=== PATIENT | female | born 1945 | race Hispanic/Latino ===

== ENCOUNTER 2017-08-17 22:14 | Emergency (ER) | payer MEDICARE ==
[2017-08-18] MEDS ORDERED: Clindamycin/D5W 900 mg/50 ml Premix Bag ONE (00:15)
[2017-08-18] MEDS ORDERED: Ondansetron HCl/PF 4 MG/2 ML Vial ONE ×2 (00:15→01:35)
[2017-08-18] MEDS ORDERED: Clindamycin/D5W 900 MG in Premix Bag 1 BAG IVPB SCH (00:30)
[2017-08-18 00:43] LABS: #Basophils 0.1 thou/uL (0.0-0.2); #Eosinphils 0.2 thou/uL (0.0-0.7); #Monocytes 0.6 thou/uL (0.11-0.59); #Neutrophils 6.5 thou/uL (1.40-6.50); %Basophils 0.6 % (0.0-1.0); %Eosinophils 2.6 % (0.0-10.0); %Lymphocytes 21.3 % (21.0-51.0); %Monocytes 6.7 % (0.0-10.0); Hematocrit 30.2 % (36.0-47.0); Mean Platelet Volume 7.5 fL (7.4-10.4); White Blood Cell (WBC) Count 9.4 thou/uL (4.8-10.8)
[2017-08-18 01:00] LABS: Bilirubin Negative (Negative); Blood, Urine Trace (Negative); Glucose, Urine (Dipstick) 250 mg/dL (Negative); Ketone, Urine Negative (Negative); Nitrite Negative (Negative); Protein, Urine (Dipstick) 100 mg/dL (Neg-Trace); Urobilinogen 0.2 mg/dL (0.2-1.0)
[2017-08-18 01:01] LABS: ALT (SGPT) 13 U/L (8-55); AST (SGOT) 22 U/L (5-34); Alkaline Phosphatase 67 U/L (40-150); Anion Gap 11 mmol/L (10-20); BUN (Urea Nitrogen) 21 mg/dL (9.8-20.1); Bilirubin, Total Less than 0.2 mg/dL (0.2-1.2); Calc. Creatinine Clearance 0 mL/min (70-130); Carbon Dioxide 25 mmol/L (23-31); Chloride 103 mmol/L (98-107); Estimated GFR-MDRD 39; Globulin 3.1 g/dL (2.4-3.5); Lipase 20 U/L (8-78); Protein, Total 6.6 g/dL (6.0-8.3)
[2017-08-18 01:01] LABS: Bacteria/HPF None Seen HPF (None Seen); Hyaline Casts/LPF 0-3 HYALINE CAST LPF (0-3 Hyaline); Squamous Epithelial 0-3 HPF (0-3); WBC/HPF 0-3 HPF (0-3)
== END 2017-08-18 02:54 | disposition home or self-care (01) ==
LOC: ERS 22:14
DX: R11.2 Nausea with vomiting, unspecified (principal); E86.0 Dehydration; T37.0X5A Adverse effect of sulfonamides, initial encounter; L03.115 Cellulitis of right lower limb; E78.5 Hyperlipidemia, unspecified; I10 Essential (primary) hypertension; E11.9 Type 2 diabetes mellitus without complications; F17.210 Nicotine dependence, cigarettes, uncomplicated; F32.9 Major depressive disorder, single episode, unspecified
CPT/HCPCS: 80053; 81003; 81015; 83690; 85025; 96361; 96365; 96375; 96376; 99406; J2405; J3490

== ENCOUNTER → 2019-12-12 | Day surgery (SDC) | payer MEDICARE ==
[2019-12-11 16:08] VITALS: BMI 22.1
[~2019-12-12] MED LIST: Fentanyl 100 MCG/2 ML VIAL ONE; Heparin 10,000 UNITS/1 ML VIAL ONE; Iopamidol 370 76% 100 ML VIAL ONE; Protamine Sulfate 50 MG/5 ML VIAL ONE; hydrALAZINE 20 MG/ML VIAL ONE
[2019-12-12 11:30] LABS: Hemoglobin 9.3 g/dL (12.0-16.0); Mean Corpuscular Hemoglobin 29.3 pg (27.0-31.0); Mean Corpuscular Volume 86.3 fL (78.0-98.0); Mean Platelet Volume 6.8 fL (7.4-10.4); Platelet Count 457 thou/uL (130-400); RBC Distribution Width 11.3 % (11.5-14.5); Red Blood Cell (RBC) Count 3.18 mill/uL (4.20-5.40); White Blood Cell (WBC) Count 12.3 thou/uL (4.8-10.8)
[2019-12-12 12:01] LABS: Anion Gap 14 mmol/L (10-20); BUN (Urea Nitrogen) 35 mg/dL (9.8-20.1); Calc. Creatinine Clearance 24 mL/min (70-130); Calcium 8.9 mg/dL (7.8-10.44); Carbon Dioxide 23 mmol/L (23-31); Chloride 104 mmol/L (98-107); Estimated GFR-MDRD 28; Glucose 146 mg/dL (83-110); Potassium 4.4 mmol/L (3.5-5.1); Sodium 137 mmol/L (136-145)
--- NOTE | 2019-12-12 13:45 | OP ---
DATE OF PROCEDURE: 12/12/2019 DIAGNOSIS: Gangrene, right foot. PROCEDURES PERFORMED: 1. Abdominal aortogram. 2. Right lower extremity runoff. 3. Angioplasty of right SFA with a 4 x 40 Lutonix balloon. CONTRAST: 34. FLUORO: 8 minutes. DESCRIPTION OF PROCEDURE: After adequate prepping and draping, the left common femoral artery was palpated and then punctured under ultrasound guidance and a 5-English dilator and sheath were advanced. Contra catheter was used to obtain abdominal aortography and then advanced over the iliac bifurcation and runoff obtained. Following this, a 6-English Destination was advanced over the Kineta guidewire, following which a PolicyStat wire was advanced across the lesion and the balloon inflated for 3 minutes. FINDINGS: The patient had minimal atherosclerosis of the aortoiliac segments bilaterally with both superficial femoral and profunda femoral vessels being patent as were the common femorals. Right superficial femoral had about a 70% mid stenosis and some irregularities less than this distally. Popliteal artery was patent as was tibioperoneal trunk. Anterior tibial occluded shortly after its origin and reconstituted by collateral just above the ankle. The posterior tibial had good flow until mid calf when the flow became sluggish and then the posterior tibial occluded completely above the ankle, filling a collateral. No vessels were visualized in the forefoot. Following completion of angioplasty, the stenosis was reduced to about 20%. Job ID: [id number]
== END ==
LOC: SDC 10:04
PROVIDERS: ATTEND Thoracic Surgery (Cardiothoracic Vascular Surgery)
DX: I70.261 Atherosclerosis of native arteries of extremities with gangrene, right leg (principal); I12.9 Hypertensive chronic kidney disease with stage 1 through stage 4 chronic kidney disease, or unspecified chronic kidney disease; E11.22 Type 2 diabetes mellitus with diabetic chronic kidney disease; N18.9 Chronic kidney disease, unspecified; D63.1 Anemia in chronic kidney disease; F32.9 Major depressive disorder, single episode, unspecified; F17.200 Nicotine dependence, unspecified, uncomplicated; Z79.4 Long term (current) use of insulin; Z79.82 Long term (current) use of aspirin; Z79.899 Other long term (current) drug therapy
CPT/HCPCS: 37224; 76942; 80048; 82962; 85027; 85347 ×2; C1769; 36416; J0360; J1644; J2720; J3010; Q9967

== ENCOUNTER 2020-01-13 16:21 | Inpatient (IN) | payer MEDICARE ==
[2020-01-13] MEDS ORDERED: Dextrose 5% in Water 1,000 ML IV PRN (16:52)
[2020-01-13] MEDS ORDERED: Dextrose 50% Abboject 50 ML SYRINGE IVP PRN (16:52)
[2020-01-13 17:27] LABS: #Eosinphils 0.3 thou/uL (0.0-0.7); #Lymphocytes 2.1 thou/uL (1.20-3.40); #Monocytes 0.7 thou/uL (0.11-0.59); #Neutrophils 10.7 thou/uL (1.40-6.50); %Basophils 0.2 % (0.0-1.0); %Eosinophils 2.5 % (0.0-10.0); %Lymphocytes 14.9 % (21.0-51.0); %Monocytes 4.8 % (0.0-10.0); %Neutrophils 77.6 % (42.0-75.0); Hemoglobin 10.1 g/dL (12.0-16.0); Mean Corpuscular HGB CONC 33.7 g/dL (32.0-36.0); Mean Corpuscular Hemoglobin 29.2 pg (27.0-31.0); Mean Corpuscular Volume 86.6 fL (78.0-98.0); Platelet Count 443 thou/uL (130-400); RBC Distribution Width 13.2 % (11.5-14.5); Red Blood Cell (RBC) Count 3.46 mill/uL (4.20-5.40); White Blood Cell (WBC) Count 13.8 thou/uL (4.8-10.8)
[2020-01-13] MEDS: Fentanyl 100 MCG/2 ML VIAL SLOW IVP PRN ×2 (17:37→22:49)
[2020-01-13] MEDS: HYDROcodone/Acetaminophen 7.5/325 mg Tablet PO PRN (17:40)
[2020-01-13] MEDS: Sodium Chloride 0.9% 1,000 ML IV SCH (17:40)
[2020-01-13 17:51] LABS: Anion Gap 15 mmol/L (10-20); BUN (Urea Nitrogen) 34 mg/dL (9.8-20.1); Calc. Creatinine Clearance 0 mL/min (70-130); Calcium 8.3 mg/dL (7.8-10.44); Carbon Dioxide 20 mmol/L (23-31); Chloride 109 mmol/L (98-107); Estimated GFR-MDRD 30; Glucose 113 mg/dL (83-110); Sodium 140 mmol/L (136-145)
--- NOTE | 2020-01-13 18:43 | CON ---
DATE OF CONSULTATION: PRIMARY CARE PROVIDER: Allyson See MD. PRIMARY SERVICE ATTENDING: Ricardo Smith MD REASON FOR CONSULT: General medical management. CHIEF COMPLAINT: Right lower extremity stump pain. HISTORY OF PRESENT ILLNESS: This is a 74-year-old female, who recently underwent right iasgd-hzv-dbzb amputation on 12/26/2019, due to gangrenous changes and ischemia of the right lower extremity. The patient was hospitalized for approximately 7 days returning home on 01/02/2020. The patient noted increasing lower extremity pains, mild erythema and sensitivities to touch of the right stump around the incision site. The patient denied any didier bleeding, drainage, discoloration, or documented fever. The patient denied any recent trauma or injury, and states she has been mainly lying in bed, elevating the lower extremities. The patient states she has not taken any recent antibiotics or new medications. The patient was evaluated by Dr. Smith and recommended for inpatient admission with plan for IV antibiotic therapy due to concern for right ohxrk-afx-rsyr amputations with stump infection. PAST MEDICAL HISTORY: 1. 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 2. Peripheral vascular disease with history of gangrene of bilateral lower extremities. 3. Hypertension. 4. Depression. 5. Hyperlipidemia. 6. Anemia of chronic kidney disease. 7. Chronic kidney disease stage 3. 8. 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 PAST SURGICAL HISTORY: 1. Status post hysterectomy. 2. Status post cholecystectomy. 3. Status post bilateral cataract removal. 4. Status post left tcdoe-xyv-hrki amputation, 03/08/2012. 5. Status post right hbmou-tdy-hqmx amputation, 12/2019. 6. Status post ray amputation, status post lateral ray amputation of the fourth and fifth toes of the left foot. 7. Status post excision of ulcer with removal of the fifth metatarsal head, 01/2012. CURRENT MEDICATIONS: 1. Glimepiride 4 mg 2 tablets p.o. daily. 2. Glipizide 10 mg p.o. daily. 3. Levemir 10 units subcutaneously daily. 4. Multivitamin one tablet p.o. daily. 5. [place]-3 fatty acids two capsules p.o. daily. 6. Zoloft 50 mg p.o. daily. 7. Enteric-coated aspirin 81 mg p.o. daily. 8. Vitamin D3 of 1000 units p.o. daily. ALLERGIES: NO KNOWN DRUG ALLERGIES. FAMILY HISTORY: Father at 59 years of age with history of diabetes, hypertension, and coronary artery disease. Mother at 74 years of age with history of hypertension and diabetes. SOCIAL HISTORY: Accompanied by her daughter in the hospital. Tobacco use, smokes up to a pack of cigarettes a week. No alcohol or illicit drug use. REVIEW OF SYSTEMS: CONSTITUTIONAL: Negative for weight loss or gain, ability to conduct usual activities. SKIN: Negative for rash, itching. EYES: Negative for double vision, pain. ENT/MOUTH: Negative for nose bleeding, neck stiffness, pain, tenderness. CARDIOVASCULAR: Negative for palpitations, dyspnea on exertion, orthopnea. RESPIRATORY: Negative for shortness of breath, wheezing, cough, hemoptysis, fever or night sweats. GASTROINTESTINAL: Negative for poor appetite, abdominal pain, heartburn, nausea, vomiting, constipation, or diarrhea. GENITOURINARY: Negative for urgency, frequency, dysuria, nocturia. MUSCULOSKELETAL: Negative for pain, swelling. NEUROLOGIC/PSYCHIATRIC: Negative for anxiety, depression. ALLERGY/IMMUNOLOGIC: Negative for skin rash, bleeding tendency. Otherwise, negative except as stated per HPI. PHYSICAL EXAMINATION: VITAL SIGNS: On admission, blood pressure 190/85, pulse 90, respiratory rate 16, temperature 98.3 degrees Fahrenheit, O2 saturation 98% on room air. GENERAL APPEARANCE: This is a 74-year-old female, alert and oriented x3, pleasant in fspv-go-usuzobbt distress. HEENT: Pupils are equal, round, reactive to light and accommodation. Extraocular muscles are intact. No scleral icterus. No conjunctival injection. Nares patent. OP is clear. Teeth in fair repair. NECK: Supple. No cervical adenopathy. No thyromegaly. No carotid bruits. No JVD appreciated. Cervical spine with full active and passive range of motion. No meningeal signs noted. CHEST: Lungs are clear to auscultation bilaterally. CARDIOVASCULAR: S1 and S2 without noted murmur, rub, or gallop. ABDOMEN: Rounded, soft, nontender, and nondistended. Bowel sounds are positive in all 4 quadrants. There is no palpable mass. No rebound or guarding appreciated. EXTREMITIES: Bilateral oxctm-pac-wjri amputations with right dbtyh-gum-xhvr amputation with stump janessa and incision intact. Mild erythema along the surgical incision. No expressible purulence. Nonblanching. Pulses palpable at the popliteal arteries bilaterally. NEUROLOGIC: Cranial nerves 2 through 12 are grossly intact. No focal or lateralizing signs appreciated. PERTINENT LABORATORY AND X-RAY FINDINGS: Sodium 140, potassium 4.0, chloride 109, CO2 of 20, BUN 34, creatinine 1.67, estimated GFR of 30, glucose 113, calcium 8.3. CBC showed a white blood cell count of 13.8, hemoglobin 10, hematocrit 30, platelet count 443 with 78% neutrophils. ASSESSMENT/PLAN: 1. Right hewgb-muk-qmbp amputation stump cellulitis. The patient will be admitted to the surgical more. Start Zosyn 2.25 g IV q.8 hours. Serial wound monitoring. Pain control with [place] and fentanyl. 2. Chronic kidney disease stage 3. Continue low volume IV fluids with normal saline. Avoid nephrotoxic agents and limit contrast exposure. Repeat creatinine in the a.m. 3. Diabetes mellitus type 2 with peripheral vascular disease. Insulin sliding scale for reflexive coverage. Resume home Lantus 10 units subcutaneously b.i.d. Accu-Chek's a.c. and at bedtime. ADA diet. 4. Hypertension. Labile currently secondarily to right lower extremity pain. Resume home blood pressure regimen and monitor clinical response. Hydralazine 10 mg IV q.4 hours p.r.n. systolic blood pressure greater than or equal to 180. 5. Anemia and chronic kidney disease. Stable currently. Continue to monitor hemoglobin trend. Repeat CBC in the a.m. 6. Prophylaxis. Pepcid 20 mg p.o. b.i.d. Wound Care consult for general evaluation. Dietitian consult pending. 7. Code status is full. Surrogate medical decision maker is the patient's daughter. Thank you for the consult. We will continue to follow with primary service. Job ID: [id number]
[2020-01-13] MEDS: Insulin Glargine 10 UNITS in Pre-Filled Syringe 1 EACH SC SCH (20:19)
[2020-01-13] MEDS: Metoprolol Tartrate 25 MG TAB PO SCH (20:19)
[2020-01-13] MEDS: Insulin Regular 300 UNITS/3 ML VIAL SC PRN (20:20)
[2020-01-13] MEDS ORDERED: Atorvastatin Calcium 40 MG TAB PO SCH (21:00)
[2020-01-13] MEDS: Piperacillin/Tazobactam 2.25 GM in Sodium Chloride 0.9% 100 ML IVPB SCH (21:26)
[2020-01-14] MEDS: HYDROcodone/Acetaminophen 7.5/325 mg Tablet PO PRN ×3 (02:04→23:24)
[2020-01-14] MEDS: Piperacillin/Tazobactam 2.25 GM in Sodium Chloride 0.9% 100 ML IVPB SCH ×2 (05:26→15:04)
[2020-01-14] MEDS: Fentanyl 100 MCG/2 ML VIAL SLOW IVP PRN (05:35)
--- NOTE | 2020-01-14 06:10 | HP ---
HISTORY OF PRESENT ILLNESS: This is a 74-year-old lady with multiple medical problems, who underwent a right xouip-mrh-bqpb amputation on 12/25 for nonhealing wound in her right foot in combination with severe ischemic rest pain that prevented her from resting. While in the hospital, she continued to have rather severe pain and was given narcotics via [employer] and then had an episode of respiratory failure probably related to the narcotics. She had elevated creatinines during that hospitalization with last one being recorded at 3.1. She was seen in consultation by multiple physicians including Pulmonology, Cardiology, Infectious Disease, my service, the General Surgery Service and the hospitalist group. PAST MEDICAL HISTORY: Includes type 2 diabetes mellitus; chronic kidney disease, stage 4; hyperlipidemia; hypertension; and peripheral vascular disease. PAST SURGICAL HISTORY: Includes right BKA recently done by me. She has had a remote left foot amputation followed by left hfulj-lgl-mnzs amputation by Dr. Roberts. She has had a previous hysterectomy, cholecystectomy, and cataract surgery. MEDICATIONS: Multiple include long-acting insulin 10 units b.i.d. Unfortunately, the medication list that she was discharged on recently from the hospital is not the current bag of medicines she brings to the office, so it is unclear what medication she is actually taking at home. She presented to my office today due to continued pain and the home health nurse was concerned about some redness and blistering of the skin. PHYSICAL EXAMINATION: GENERAL: On examination, she is an elderly female, complaining of pain such that she cannot rest at night. VITAL SIGNS: Her temperature is normal in the office, her blood pressure is 110/70, and her heart rate is 80. NECK: Without adenopathy and she does have soft bruits. LUNGS: Clear. CARDIAC: Regular rate and rhythm. ABDOMEN: Soft. EXTREMITIES: Her right BK stump has some erythema along the staple line and has some blistering on the flap adjacent to the staple line. There are some areas of blanching as well. Otherwise, the flap is viable and soft. She does have tenderness to palpation and no drainage. Half of her janessa were removed. She has palpable femoral pulses. ASSESSMENT AND PLAN: At this time, it is not clear to me if her pain is from an infection or related to her surgery, but probably IV antibiotics are appropriate at this time in an attempt to give the best chance for BK amputation to heal. We will ask the Hospitalist Service to assist with her management of her medical problems and I anticipate pain management will continue to be an issue. She did receive gabapentin on her last admission and it was recommended that this not be continued. Job ID: [id number]
[2020-01-14] MEDS ORDERED: Prevnar 13-Val Conj/PF 0.5 ML SYRINGE IM ONE (09:00)
[2020-01-14] MEDS ORDERED: Vancomycin HCl 0.75 GM in Sodium Chloride 0.9% 250 ML 300 ML IVPB SCH (09:45)
[2020-01-14] MEDS ORDERED: Vancomycin HCl 750 MG in Sodium Chloride 0.9% 250 ML 250 ML IVPB SCH (09:45)
[2020-01-14] MEDS: Metoprolol Tartrate 25 MG TAB PO SCH ×2 (09:53→20:41)
[2020-01-14] MEDS: Insulin Glargine 10 UNITS in Pre-Filled Syringe 1 EACH SC SCH ×2 (09:53→20:42)
[2020-01-14] MEDS: Aspirin Chewable 81 MG TAB PO SCH (09:53)
--- NOTE | 2020-01-14 12:46 | PDOC.HOSPP ---
- Subjective Encounter Date: 01/14/20 Encounter Time: 12:44 Subjective: pain in surgical stump improved - Objective Vital Signs & Weight: Vital Signs (12 hours) Temp Pulse Resp BP Pulse Ox 01/14/20 11:19 98.4 F 72 14 175/72 H 96 01/14/20 08:00 98.3 F 72 20 179/83 H 99 01/14/20 03:18 98.3 F 78 16 171/77 H 97 Weight Weight 125 lb I&O: 01/13/20 01/14/20 01/15/20 06:59 06:59 06:59 Intake Total 1200 Balance 1200 Result Diagrams: 01/13/20 17:15 01/13/20 17:15 Additional Labs: Accuchecks 01/14/20 01/14/20 01/13/20 11:20 05:19 20:11 POC Glucose 164 H 98 315 H 01/13/20 17:22 POC Glucose 118 H Hospitalist ROS - Medication Medications: Active Medications Generic Name Dose Route Start Last Admin Trade Name Freq PRN Reason Stop Dose Admin Hydrocodone Bitart/Acetaminophen 1 tab 01/13/20 16:47 01/14/20 02:04 [place] 7.5/325 PO 1 tab Q6H PRN Administration Moderate Pain (4-6) Aspirin 81 mg 01/14/20 09:00 01/14/20 09:53 Aspirin Chewable PO 81 mg DAILY VICKY Administration Atorvastatin Calcium 40 mg 01/13/20 21:00 01/13/20 20:19 Lipitor PO 40 mg HS VICKY Administration Fentanyl 25 mcg 01/13/20 16:47 01/14/20 05:35 Sublimaze SLOW IVP 25 mcg Q2H PRN Administration Severe Pain (7-10) Piperacillin Sod/Tazobactam 100 mls @ 200 mls/hr 01/13/20 22:00 01/14/20 05: 26 Sod 2.25 gm/ Sodium Chloride IVPB 100 mls Q8HR VICKY Administration Sodium Chloride 1,000 mls @ 50 mls/hr 01/13/20 16:45 01/13/20 17:40 Normal Saline 0.9% IV 1,000 mls .Q20H VICKY Administration Insulin Glargine 10 units/ 0.1 mls @ 0 mls/hr 01/13/20 21:00 01/14/20 09:53 Miscellaneous Medication SC 0.1 mls BID VICKY Administration Vancomycin HCl 750 mg/ Sodium 250 mls @ 166.667 mls/hr 01/14/20 09:45 09:53 Chloride IVPB 01/14/20 14:00 250 mls NOW VICKY Administration Insulin Human Regular 0 units 01/13/20 16:52 01/13/20 20:20 Humulin R SC 8 unit .MODERATE SLIDING SC PRN Administration MODERATE SLIDING SCALE Protocol Metoprolol Tartrate 25 mg 01/13/20 21:00 01/14/20 09:53 Lopressor PO 25 mg BID VICKY Administration Sertraline HCl 50 mg 01/13/20 21:00 01/13/20 20:19 Zoloft PO 50 mg HS VICKY Administration - Exam General Appearance: awake alert Neck: no JVD Heart: RRR, no murmur Respiratory: CTAB Gastrointestinal: soft, normal bowel sounds Extremities: no edema Extremities - other findings: R BKA- incision dry with mild erythema Hosp A/P (1) Cellulitis and abscess of leg Code(s): L03.119 - CELLULITIS OF UNSPECIFIED PART OF LIMB; L02.419 - CUTANEOUS ABSCESS OF LIMB, UNSPECIFIED Status: Acute (2) DM type 2 causing CKD stage 3 Code(s): E11.22 - TYPE 2 DIABETES MELLITUS W DIABETIC CHRONIC KIDNEY DISEASE; N18.3 - CHRONIC KIDNEY DISEASE, STAGE 3 (MODERATE) Status: Chronic Qualifiers: Diabetes mellitus vehicle insurance agent insulin use: with group home use Qualified Code( s): E11.22 - Type 2 diabetes mellitus with diabetic chronic kidney disease; N18.3 - Chronic kidney disease, stage 3 (moderate); Z79.4 - pallet stone positioner (current) use of insulin (3) Dyslipidemia Code(s): E78.5 - HYPERLIPIDEMIA, UNSPECIFIED Status: Chronic (4) HTN (hypertension) Code(s): I10 - ESSENTIAL (PRIMARY) HYPERTENSION Status: Chronic Qualifiers: Hypertension type: essential hypertension Qualified Code(s): I10 - Essential (primary) hypertension (5) Uncontrolled pain Code(s): R52 - PAIN, UNSPECIFIED Status: Acute - Plan cont anagesia per [facility] accu/ss/ [place] insulin on broad spectrum iv antibx cont home meds
[2020-01-14] MEDS: hydrALAZINE 20 MG/ML VIAL SLOW IVP PRN (17:04)
--- NOTE | 2020-01-14 17:20 | CON ---
DATE OF CONSULTATION: REASON FOR CONSULTATION: Inflammatory changes at the BKA amputation site. HISTORY OF PRESENT ILLNESS: A 74-year-old, whom I had seen just a few days ago when she presented with a history of type 2 diabetes; CKD, stage 3; and PVD with failed prior attempts at right and left side revascularization and prior left BKA, who presented with persistent right foot ulcer and pain and evidence of gangrene. She underwent a right BKA, developed acute renal failure and volume overload, and had some low-grade temperature elevation. The toe culture revealed Pseudomonas aeruginosa, the organism was campos-susceptible. All the other cultures were negative. The last time I saw her was on December 31, and we felt that neutrophilia most likely was due to pulmonary edema from renal insufficiency and recommended discontinuing the antimicrobials. She persisted with pain, which pretty much has been the same, but later to present for admission, and Dr. Smith re-admitted her yesterday, and currently, she is sitting in bed. She does not appear in distress. No headaches. No change in visual symptoms, sore throat, odynophagia, or dysphagia. No cough, sputum production, or chest pain. No abdominal pain. No voiding issues. Quite a bit of tenderness in the right stump site at the BKA level. No neurological symptoms. PAST MEDICAL HISTORY: Type 2 diabetes; PVD; CKD, stage 3; hypertension; left BKA and right BKA; and revascularization attempts, which failed. PAST SURGICAL HISTORY: Hysterectomy, cholecystectomy, and cataracts. FAMILY HISTORY: Type 2 diabetes and coronary artery disease. SOCIAL HISTORY: Smoking in the past, but not current. ALLERGIES: NONE. MEDICATIONS LIST: She is on: 1. Norvasc. 2. Aspirin. 3. Lipitor. 4. Insulin. 5. Lisinopril. 6. Zosyn. PHYSICAL EXAMINATION: VITAL SIGNS: T-max 98.4, blood pressure 170/72, pulse 72, respirations 14, O2 saturation 96%. SKIN: Shows the area of erythema which is mild, distributed along the upper segment of the BKA flap. The stitches are still in place. There is no drainage. Pretty much the entire tip is tender to touch, but there is no discoloration except for this faint rim of erythema along the upper edge. No other abnormalities noted on the skin examination. LYMPHATICS: No lymphadenopathy. HEENT: Ocular movements are conjugate. Sclerae are white. Oral cavity, numerous missing teeth. NECK: Supple. No jugular vein distention. LUNGS: Symmetric air entry. No crackles or wheezing. HEART: S1 and S2. Regular rate without murmurs. ABDOMEN: Soft. Not distended or tender. EXTREMITIES: She has marked tenderness at the right BKA site. Pretty much the entire tip is tender to palpation. She moves extremities with some limitations because of this inflammatory process and pain. LABORATORY DATA: Sodium 140, creatinine 1.67. White cell count is 13.8, hemoglobin 10.1, platelets of 443 with 77% neutrophils. Microbiology as noted above. She has Mireya albicans in the urine culture from December 29, likely not significant. No imaging studies at this point in time. ASSESSMENT: Type 2 diabetes, prior smoking, peripheral vascular disease with failed revascularization, bilateral below-knee amputations, the most recent one in the right side, now with pain and some mild inflammatory changes. DISCUSSION: There is no overt necrosis. The pulses in the popliteal area are good. I think we can get by with just the antimicrobials for the time being and monitor clinical response. We will check her C-reactive protein, and if she does not get better and stump develops worsening changes, then we may have to image the area or have surgical revision. Hopefully, that can be avoided. Job ID: [id number] MTDD
[2020-01-14] MEDS: Sodium Chloride 0.9% 1,000 ML IV SCH (19:12)
[2020-01-14] MEDS: metroNIDAZOLE 250 MG TAB PO SCH (20:40)
[2020-01-14] MEDS: Atorvastatin Calcium 40 MG TAB PO SCH (20:41)
[2020-01-14] MEDS: Cefepime 1 GM in Sodium Chloride 0.9% 100 ML IVPB SCH (20:41)
[2020-01-15] MEDS: Fentanyl 100 MCG/2 ML VIAL SLOW IVP PRN ×2 (03:10→19:15)
[2020-01-15] MEDS: Sodium Chloride 0.9% 1,000 ML IV SCH (03:11)
[2020-01-15] MEDS: HYDROcodone/Acetaminophen 7.5/325 mg Tablet PO PRN ×3 (06:33→18:21)
--- NOTE | 2020-01-15 07:18 | PRG ---
DATE OF SERVICE: 01/15/2020 This is hospital day really #2 following admission for possible kbkce-lbi-yymt amputation infection. The patient was seen by Dr. Childress yesterday as well as Dr. August, and I appreciate the changes, they have made. She rested relatively well last night and seems to be in less discomfort than she was in when I saw her in my office at admission. Her stump really looks about the same with this likely minimal area of erythema surrounding the staple line. The membrane was soft with no drainage. We will continue her antibiotics for the time being, and we will recheck her creatinine and white count tomorrow. We will go ahead and stop her IV fluids as she is taking p.o. Job ID: [id number]
[2020-01-15] MEDS: Insulin Glargine 10 UNITS in Pre-Filled Syringe 1 EACH SC SCH ×2 (08:21→20:23)
[2020-01-15] MEDS: Metoprolol Tartrate 25 MG TAB PO SCH ×2 (08:22→20:23)
[2020-01-15] MEDS: Lisinopril 5 MG TAB PO SCH (08:22)
[2020-01-15] MEDS: Amlodipine 5 MG TAB PO SCH (08:22)
[2020-01-15] MEDS: Aspirin Chewable 81 MG TAB PO SCH (08:23)
[2020-01-15] MEDS: metroNIDAZOLE 250 MG TAB PO SCH ×3 (08:23→20:23)
[2020-01-15] MEDS: Cefepime 1 GM in Sodium Chloride 0.9% 100 ML IVPB SCH ×2 (08:24→20:21)
[2020-01-15] MEDS: Polyethylene Glycol 3350 17 GM Packet PO SCH (09:01)
[2020-01-15] MEDS ORDERED: Vancomycin 1 GM in Premix Bag 1 BAG IVPB SCH (10:15)
--- NOTE | 2020-01-15 11:50 | PDOC.HOSPP ---
- Subjective Encounter Date: 01/15/20 Encounter Time: 11:44 Subjective: no fever, chills. pain in stump under asequate control - Objective Vital Signs & Weight: Vital Signs (12 hours) Temp Pulse Resp BP BP Pulse Ox 01/15/20 08:22 74 01/15/20 07:25 98.4 F 74 16 158/81 H 97 01/15/20 03:12 98.2 F 70 16 162/75 H 98 Weight Admit Weight 125 lb Weight 125 lb I&O: 01/14/20 01/15/20 01/16/20 06:59 06:59 06:59 Intake Total 1200 1750 Balance 1200 1750 Result Diagrams: 01/13/20 17:15 01/13/20 17:15 Additional Labs: Accuchecks 01/15/20 01/14/20 01/14/20 05:20 17:01 11:20 POC Glucose 121 H 136 H 164 H Hospitalist ROS - Medication Medications: Active Medications Generic Name Dose Route Start Last Admin Trade Name Freq PRN Reason Stop Dose Admin Hydrocodone Bitart/Acetaminophen 1 tab 01/13/20 16:47 01/15/20 06:33 [place] 7.5/325 PO 1 tab Q6H PRN Administration Moderate Pain (4-6) Amlodipine Besylate 5 mg 01/15/20 09:00 01/15/20 08:22 Norvasc PO 5 mg DAILY VICKY Administration Aspirin 81 mg 01/14/20 09:00 01/15/20 08:23 Aspirin Chewable PO 81 mg DAILY VICKY Administration Atorvastatin Calcium 40 mg 01/14/20 21:00 01/14/20 20:41 Lipitor PO 40 mg HS VICKY Administration Fentanyl 25 mcg 01/13/20 16:47 01/15/20 03:10 Sublimaze SLOW IVP 25 mcg Q2H PRN Administration Severe Pain (7-10) Hydralazine HCl 10 mg 01/13/20 17:59 01/14/20 17:04 Apresoline SLOW IVP 10 mg Q4H PRN Administration SBP Greater Than 180 Insulin Glargine 10 units/ 0.1 mls @ 0 mls/hr 01/13/20 21:00 01/15/20 08:21 Miscellaneous Medication SC 0.1 mls BID VICKY Administration Cefepime HCl 1 gm/ Sodium 100 mls @ 200 mls/hr 01/14/20 21:00 01/15/20 08:24 Chloride IVPB 100 mls Q12HR VICKY Administration Insulin Human Regular 0 units 01/13/20 16:52 01/13/20 20:20 Humulin R SC 8 unit .MODERATE SLIDING SC PRN Administration MODERATE SLIDING SCALE Protocol Lisinopril 5 mg 01/15/20 09:00 01/15/20 08:22 Zestril PO 5 mg DAILY VICKY Administration Metoprolol Tartrate 25 mg 01/14/20 21:00 01/15/20 08:22 Lopressor PO 25 mg BID VICKY Administration Metronidazole 250 mg 01/14/20 21:00 01/15/20 08:23 Flagyl PO 250 mg TID VICKY Administration Polyethylene Glycol 17 gm 01/15/20 09:00 01/15/20 09:01 Miralax PO Not Given DAILY VICKY Sertraline HCl 50 mg 01/13/20 21:00 01/14/20 20:40 Zoloft PO 50 mg HS VICKY Administration Sodium Chloride 10 ml 01/14/20 21:00 01/14/20 20:42 Flush - Normal Saline IVF Not Given Q12HR VICKY - Exam General Appearance: awake alert Neck: no JVD Heart: RRR Respiratory: CTAB Gastrointestinal: soft, normal bowel sounds Extremities: no edema Extremities - other findings: periincision erythema, wound still dry Hosp A/P (1) Cellulitis and abscess of leg Code(s): L03.119 - CELLULITIS OF UNSPECIFIED PART OF LIMB; L02.419 - CUTANEOUS ABSCESS OF LIMB, UNSPECIFIED Status: Acute (2) DM type 2 causing CKD stage 3 Code(s): E11.22 - TYPE 2 DIABETES MELLITUS W DIABETIC CHRONIC KIDNEY DISEASE; N18.3 - CHRONIC KIDNEY DISEASE, STAGE 3 (MODERATE) Status: Chronic Qualifiers: Diabetes mellitus buttermaker continuous churn insulin use: with buttermaker continuous churn use Qualified Code( s): E11.22 - Type 2 diabetes mellitus with diabetic chronic kidney disease; N18.3 - Chronic kidney disease, stage 3 (moderate); Z79.4 - FDC (current) use of insulin (3) Dyslipidemia Code(s): E78.5 - HYPERLIPIDEMIA, UNSPECIFIED Status: Chronic (4) HTN (hypertension) Code(s): I10 - ESSENTIAL (PRIMARY) HYPERTENSION Status: Chronic Qualifiers: Hypertension type: essential hypertension Qualified Code(s): I10 - Essential (primary) hypertension (5) Uncontrolled pain Code(s): R52 - PAIN, UNSPECIFIED Status: Acute - Plan cont anagesia per [facility] accu/ss/ [place] insulin on broad spectrum iv antibx cont home meds will discuss with ID
[2020-01-15] MEDS: Insulin Regular 300 UNITS/3 ML VIAL SC PRN ×2 (12:41→15:52)
--- NOTE | 2020-01-15 14:05 | PRG ---
DATE OF SERVICE: 01/15/2020 SUBJECTIVE: A little bit less pain, but not much less than yesterday. No respiratory symptoms. She had diarrhea early today this morning. OBJECTIVE: VITAL SIGNS: Showed normal temperature and BP 180/80, pulse 71, respirations 14. GENERAL: Chronically ill appearing, but no acute distress. LUNGS: Clear. HEART: S1 and S2, regular rate. ABDOMEN: Soft. Right BKA stump with a little bit less erythema than before. Along the margin, the suture line is a little bit dark, but most of the tissues appear to be viable and the white cell count has not been repeated. ASSESSMENT AND DISCUSSION: Type 2 diabetes, peripheral vascular disease with failed revascularization, bilateral BKA, now with inflammatory process at the stump of the right side. We will check her C diff. Continue antimicrobials. Job ID: [id number]
[2020-01-15] MEDS: traMADol HCl 50 MG TAB PO PRN (20:21)
[2020-01-15] MEDS: Atorvastatin Calcium 40 MG TAB PO SCH (20:22)
[2020-01-15] MEDS ORDERED: Ondansetron PF 4 MG/2 ML Vial IVP PRN (20:58)
[2020-01-16] MEDS: Insulin Regular 300 UNITS/3 ML VIAL SC PRN ×2 (04:51→12:14)
[2020-01-16 05:13] LABS: #Basophils 0.1 thou/uL (0.0-0.2); #Eosinphils 0.2 thou/uL (0.0-0.7); #Monocytes 0.8 thou/uL (0.11-0.59); #Neutrophils 8.2 thou/uL (1.40-6.50); %Basophils 0.5 % (0.0-1.0); %Lymphocytes 17.6 % (21.0-51.0); %Monocytes 6.9 % (0.0-10.0); %Neutrophils 72.9 % (42.0-75.0); Hemoglobin 9.6 g/dL (12.0-16.0); Mean Corpuscular HGB CONC 33.1 g/dL (32.0-36.0); Mean Corpuscular Hemoglobin 29.1 pg (27.0-31.0); Mean Corpuscular Volume 87.8 fL (78.0-98.0); Mean Platelet Volume 7.5 fL (7.4-10.4); Platelet Count 378 thou/uL (130-400); RBC Distribution Width 13.1 % (11.5-14.5); Red Blood Cell (RBC) Count 3.29 mill/uL (4.20-5.40); White Blood Cell (WBC) Count 11.3 thou/uL (4.8-10.8)
[2020-01-16 05:40] LABS: Anion Gap 13 mmol/L (10-20); BUN (Urea Nitrogen) 35 mg/dL (9.8-20.1); Calc. Creatinine Clearance 27 mL/min (70-130); Calcium 8.1 mg/dL (7.8-10.44); Carbon Dioxide 20 mmol/L (23-31); Chloride 108 mmol/L (98-107); Estimated GFR-MDRD 31; Glucose 200 mg/dL (83-110); Sodium 137 mmol/L (136-145)
[2020-01-16] MEDS: HYDROcodone/Acetaminophen 5/325 mg Tablet PO PRN ×3 (06:38→17:50)
--- NOTE | 2020-01-16 07:09 | PRG ---
DATE OF SERVICE: 01/16/2020 SUBJECTIVE: The patient remains afebrile. Blood pressure is somewhat elevated. Her glucoses are generally elevated on current regimen. She states her pain has improved in her stump, although she developed diarrhea in the last 48 hours and C diff is pending. OBJECTIVE: Examination of her stump today reveals essentially no change in the appearance. Soft, mildly tender. No obvious drainage. PLAN: At this time is to continue antibiotics. Job ID: [id number]
[2020-01-16] MEDS: Metoprolol Tartrate 25 MG TAB PO SCH ×2 (08:58→20:20)
[2020-01-16] MEDS: Amlodipine 5 MG TAB PO SCH (08:58)
[2020-01-16] MEDS: metroNIDAZOLE 250 MG TAB PO SCH ×2 (08:58→15:15)
[2020-01-16] MEDS: traMADol HCl 50 MG TAB PO PRN (08:58)
[2020-01-16] MEDS: Aspirin Chewable 81 MG TAB PO SCH (08:58)
[2020-01-16] MEDS: Lisinopril 5 MG TAB PO SCH (08:59)
[2020-01-16] MEDS: Cefepime 1 GM in Sodium Chloride 0.9% 100 ML IVPB SCH (09:01)
[2020-01-16] MEDS: Insulin Glargine 10 UNITS in Pre-Filled Syringe 1 EACH SC SCH ×2 (09:01→20:19)
[2020-01-16] MEDS: Polyethylene Glycol 3350 17 GM Packet PO SCH (09:06)
--- NOTE | 2020-01-16 10:43 | PDOC.HOSPP ---
- Subjective Encounter Date: 01/16/20 Encounter Time: 10:38 Subjective: no fever, chills. pain controlled - Objective Vital Signs & Weight: Vital Signs (12 hours) Temp Pulse Resp BP BP Pulse Ox 01/16/20 08:59 67 01/16/20 08:58 67 01/16/20 07:43 98.1 F 67 16 148/67 H 96 01/16/20 04:35 148/71 H 01/16/20 04:00 97.7 F 67 18 173/77 H 97 01/15/20 23:52 98.3 F 75 18 135/70 98 Weight Admit Weight 125 lb Weight 125 lb I&O: 01/15/20 01/16/20 01/17/20 06:59 06:59 06:59 Intake Total 1750 960 Output Total 1 Balance 1750 959 Result Diagrams: 01/16/20 04:45 01/16/20 04:45 Additional Labs: Accuchecks 01/16/20 01/15/20 01/15/20 04:46 20:05 15:38 POC Glucose 222 H 80 228 H 01/15/20 01/14/20 11:36 20:17 POC Glucose 163 H 172 H Hospitalist ROS - Medication Medications: Active Medications Generic Name Dose Route Start Last Admin Trade Name Freq PRN Reason Stop Dose Admin Hydrocodone Bitart/Acetaminophen 1 tab 01/13/20 16:47 01/15/20 18:21 [place] 7.5/325 PO 1 tab Q6H PRN Administration Moderate Pain (4-6) Hydrocodone Bitart/Acetaminophen 2 tab 01/15/20 21:00 01/16/20 06:38 [place] 5/325 PO 2 tab Q6H PRN Administration Moderate to Severe Pain (6-10) Amlodipine Besylate 5 mg 01/15/20 09:00 01/16/20 08:58 Norvasc PO 5 mg DAILY VICKY Administration Aspirin 81 mg 01/14/20 09:00 01/16/20 08:58 Aspirin Chewable PO 81 mg DAILY VICKY Administration Atorvastatin Calcium 40 mg 01/14/20 21:00 01/15/20 20:22 Lipitor PO 40 mg HS VICKY Administration Fentanyl 25 mcg 01/13/20 16:47 01/15/20 19:15 Sublimaze SLOW IVP 25 mcg Q2H PRN Administration Severe Pain (7-10) Hydralazine HCl 10 mg 01/13/20 17:59 01/14/20 17:04 Apresoline SLOW IVP 10 mg Q4H PRN Administration SBP Greater Than 180 Insulin Glargine 10 units/ 0.1 mls @ 0 mls/hr 01/13/20 21:00 01/16/20 09:01 Miscellaneous Medication SC 0.1 mls BID VICKY Administration Cefepime HCl 1 gm/ Sodium 100 mls @ 200 mls/hr 01/14/20 21:00 01/16/20 09:01 Chloride IVPB 100 mls Q12HR VICKY Administration Insulin Human Regular 0 units 01/13/20 16:52 01/16/20 04:51 Humulin R SC 4 unit .MODERATE SLIDING SC PRN Administration MODERATE SLIDING SCALE Protocol Lisinopril 5 mg 01/15/20 09:00 01/16/20 08:59 Zestril PO 5 mg DAILY VICKY Administration Metoprolol Tartrate 25 mg 01/14/20 21:00 01/16/20 08:58 Lopressor PO 25 mg BID VICKY Administration Metronidazole 250 mg 01/14/20 21:00 01/16/20 08:58 Flagyl PO 250 mg TID VICKY Administration Ondansetron HCl 4 mg 01/15/20 20:58 01/16/20 00:46 Zofran IVP 4 mg Q6H PRN Administration Nausea/Vomiting Polyethylene Glycol 17 gm 01/15/20 09:00 01/16/20 09:06 Miralax PO Not Given DAILY VICKY Sertraline HCl 50 mg 01/13/20 21:00 01/15/20 20:23 Zoloft PO 50 mg HS VICKY Administration Sodium Chloride 10 ml 01/14/20 21:00 01/16/20 09:05 Flush - Normal Saline IVF 10 ml Q12HR VICKY Administration Sodium Chloride 10 ml 01/14/20 09:38 01/15/20 11:58 Flush - Normal Saline IVF 10 ml PRN PRN Administration Saline Flush Tramadol HCl 50 mg 01/13/20 16:47 01/16/20 08:58 Ultram PO 50 mg Q6H PRN Administration Mild Pain (1-3) - Exam General Appearance: awake alert Neck: no JVD Heart: RRR, no murmur Respiratory: CTAB Gastrointestinal: soft, normal bowel sounds Extremities - other findings: wound on R BKA stump- [place], no drainage, decreased erythema Hosp A/P (1) Cellulitis and abscess of leg Code(s): L03.119 - CELLULITIS OF UNSPECIFIED PART OF LIMB; L02.419 - CUTANEOUS ABSCESS OF LIMB, UNSPECIFIED Status: Acute (2) DM type 2 causing CKD stage 3 Code(s): E11.22 - TYPE 2 DIABETES MELLITUS W DIABETIC CHRONIC KIDNEY DISEASE; N18.3 - CHRONIC KIDNEY DISEASE, STAGE 3 (MODERATE) Status: Chronic Qualifiers: Diabetes mellitus fdc insulin use: with television inspector use Qualified Code( s): E11.22 - Type 2 diabetes mellitus with diabetic chronic kidney disease; N18.3 - Chronic kidney disease, stage 3 (moderate); Z79.4 - long-term (current) use of insulin (3) Dyslipidemia Code(s): E78.5 - HYPERLIPIDEMIA, UNSPECIFIED Status: Chronic (4) HTN (hypertension) Code(s): I10 - ESSENTIAL (PRIMARY) HYPERTENSION Status: Chronic Qualifiers: Hypertension type: essential hypertension Qualified Code(s): I10 - Essential (primary) hypertension (5) Uncontrolled pain Code(s): R52 - PAIN, UNSPECIFIED Status: Acute - Plan cont anagesia per [facility] accu/ss/ [place] insulin on broad spectrum iv antibx cont home meds will discuss with ID
[2020-01-16 11:01] LABS: Vancomycin, Random 13.4 ug/mL (See Comment)
[2020-01-16] MEDS ORDERED: Vancomycin 1 GM in Premix Bag 1 BAG IVPB SCH (12:30)
[2020-01-16] MEDS: Vancomycin HCl 750 GM in Sodium Chloride 0.9% 250 ML 250 ML IVPB SCH ×2 (12:43→12:52)
--- NOTE | 2020-01-16 16:57 | PRG ---
DATE OF SERVICE: 01/16/2020 SUBJECTIVE: Ms. Mcintyre is having persistence of pain. She is afebrile. The stump is more erythematous today compared with yesterday. There is a little bit more necrosis along the edges of the suture site. OBJECTIVE: LUNGS: Clear. HEART: S1 and S2, regular rate. ABDOMEN: Soft. LABORATORY DATA: White cell count 11.3, hemoglobin 9.6, and platelets 378. C difficile was negative. ASSESSMENT AND DISCUSSION: Type 2 diabetes, peripheral vascular disease, failed vascularization, bilateral below knee amputation, now inflammatory process at the stump of the right side with some worsening of inflammatory process. We will switch to meropenem. Add antifungal with micafungin. Continue vancomycin and check MRI without contrast. Job ID: [id number]
[2020-01-16] MEDS: Micafungin 100 MG in Sodium Chloride 0.9% 100 ML IVPB SCH (17:50)
[2020-01-16] MEDS: MEROPENEM 1 GM/50 ML 1 GM in Premix Bag 1 BAG IVPB SCH (20:19)
[2020-01-16] MEDS: Atorvastatin Calcium 40 MG TAB PO SCH (20:20)
[2020-01-16] MEDS ORDERED: Meropenem 1 GM in Sodium Chloride 0.9% 100 ML IVPB SCH (21:00)
[2020-01-17] MEDS: HYDROcodone/Acetaminophen 5/325 mg Tablet PO PRN ×4 (00:42→23:49)
[2020-01-17] MEDS: hydrALAZINE 20 MG/ML VIAL SLOW IVP PRN (04:35)
[2020-01-17] MEDS: traMADol HCl 50 MG TAB PO PRN ×2 (04:36→21:03)
[2020-01-17] MEDS: Fentanyl 100 MCG/2 ML VIAL SLOW IVP PRN ×2 (04:36→18:28)
[2020-01-17] MEDS: Insulin Glargine 10 UNITS in Pre-Filled Syringe 1 EACH SC SCH ×2 (08:26→20:32)
[2020-01-17] MEDS: Lisinopril 5 MG TAB PO SCH (08:27)
[2020-01-17] MEDS: Metoprolol Tartrate 25 MG TAB PO SCH ×2 (08:27→20:31)
[2020-01-17] MEDS: Amlodipine 5 MG TAB PO SCH (08:27)
[2020-01-17] MEDS: Aspirin Chewable 81 MG TAB PO SCH (08:27)
[2020-01-17] MEDS: Polyethylene Glycol 3350 17 GM Packet PO SCH (08:28)
[2020-01-17] MEDS: MEROPENEM 1 GM/50 ML 1 GM in Premix Bag 1 BAG IVPB SCH ×2 (08:33→20:32)
[2020-01-17] MEDS ORDERED: Amlodipine 10 MG TAB PO SCH (11:30)
[2020-01-17] MEDS: Insulin Regular 300 UNITS/3 ML VIAL SC PRN ×2 (12:28→16:51)
--- NOTE | 2020-01-17 13:00 | MRI ---
MRI RIGHT PROXIMAL FORELEG: DATE: 01/17/2020. PROVIDED CLINICAL HISTORY: Pain and swelling status post below the knee amputation. FINDINGS: Postoperative changes of below the knee amputation demonstrated at the level of the proximal, tibial, and fibular diaphyses. There is poorly marginated signal alteration on T1 and fluid sensitive seque nces involving the distal margins of the remaining tibia and fibula. There is a small amount of circ umscribed fluid signal intensity superficial to the distal remaining tibia within the soft tissues. No additional focal circumscribed fluid signal intensity is evident. There is diffuse patchy signal alteration on fluid sensitive sequences throughout the foreleg musculature. The amount of fluid within the knee joint appears physiologic as visualized. Nondisplaced posterior horn medial meniscus tear is demonstrated. The collateral and cruciate ligaments appear intact, as d oes the patellar tendon. IMPRESSION: 1. Signal alteration involving the remaining distal tibia and fibula at the surgical margins. This could reflect osteomyelitis. 2. Patchy multifocal signal alteration on fluid sensitive sequences involving the foreleg musculatur e, which could reflect infectious myositis. 3. Circumscribed fluid signal intensity superficial to the remaining distal tibial osseous margin, w hich could reflect seroma or abscess. POS: DARWIN
--- NOTE | 2020-01-17 16:23 | PDOC.HOSPP ---
- Subjective Encounter Date: 01/17/20 Encounter Time: 15:20 Subjective: Pt seen for followup re: cellulitis. Sleepy but arousable, not answering questions. Could not complete ROS. - Objective Vital Signs & Weight: Vital Signs (12 hours) Temp Pulse Resp BP BP Pulse Ox 01/17/20 12:27 75 165/72 H 01/17/20 11:01 98.9 F 75 16 165/72 H 100 01/17/20 08:27 72 176/73 H 01/17/20 08:25 99 01/17/20 08:11 97.8 F 72 16 176/73 H 99 01/17/20 04:35 65 174/74 H Weight Admit Weight 125 lb Weight 125 lb I&O: 01/16/20 01/17/20 01/18/20 06:59 06:59 06:59 Intake Total 960 Output Total 1 Balance 959 Result Diagrams: 01/16/20 04:45 01/16/20 04:45 Additional Labs: Accuchecks 01/17/20 01/17/20 01/16/20 12:23 05:57 19:32 POC Glucose 214 H 126 H 137 H 01/16/20 10:40 POC Glucose 218 H Labs and MARs reviewed by me Hospitalist ROS - Review of Systems ROS unobtainable: due to mental status - Medication Medications: Active Medications Generic Name Dose Route Start Last Admin Trade Name Freq PRN Reason Stop Dose Admin Hydrocodone Bitart/Acetaminophen 1 tab 01/13/20 16:47 01/15/20 18:21 [place] 7.5/325 PO 1 tab Q6H PRN Administration Moderate Pain (4-6) Hydrocodone Bitart/Acetaminophen 2 tab 01/15/20 21:00 01/17/20 10:03 [place] 5/325 PO 2 tab Q6H PRN Administration Moderate to Severe Pain (6-10) Aspirin 81 mg 01/14/20 09:00 01/17/20 08:27 Aspirin Chewable PO 81 mg DAILY VICKY Administration Atorvastatin Calcium 40 mg 01/14/20 21:00 01/16/20 20:20 Lipitor PO 40 mg HS VICKY Administration Fentanyl 25 mcg 01/13/20 16:47 01/17/20 04:36 Sublimaze SLOW IVP 25 mcg Q2H PRN Administration Severe Pain (7-10) Hydralazine HCl 10 mg 01/13/20 17:59 01/17/20 04:35 Apresoline SLOW IVP 10 mg Q4H PRN Administration SBP Greater Than 180 Insulin Glargine 10 units/ 0.1 mls @ 0 mls/hr 01/13/20 21:00 01/17/20 08:26 Miscellaneous Medication SC 0.1 mls BID VICKY Administration Micafungin Sodium 100 mg/ 100 mls @ 100 mls/hr 01/16/20 17:00 01/16/20 17:50 Sodium Chloride IVPB 100 mls 1700 VICKY Administration Meropenem 1 gm/ Device 50 mls @ 200 mls/hr 01/16/20 21:00 01/17/20 08:33 IVPB 50 mls Q12HR VICKY Administration Insulin Human Regular 0 units 01/13/20 16:52 01/17/20 12:28 Humulin R SC 4 unit .MODERATE SLIDING SC PRN Administration MODERATE SLIDING SCALE Protocol Lisinopril 5 mg 01/15/20 09:00 01/17/20 08:27 Zestril PO 5 mg DAILY VICKY Administration Metoprolol Tartrate 25 mg 01/14/20 21:00 01/17/20 08:27 Lopressor PO 25 mg BID VICKY Administration Ondansetron HCl 4 mg 01/15/20 20:58 01/16/20 00:46 Zofran IVP 4 mg Q6H PRN Administration Nausea/Vomiting Polyethylene Glycol 17 gm 01/15/20 09:00 01/17/20 08:28 Miralax PO Not Given DAILY VICKY Sertraline HCl 50 mg 01/13/20 21:00 01/16/20 20:20 Zoloft PO 50 mg HS VICKY Administration Sodium Chloride 10 ml 01/14/20 21:00 01/17/20 08:28 Flush - Normal Saline IVF 10 ml Q12HR VICKY Administration Sodium Chloride 10 ml 01/14/20 09:38 01/15/20 11:58 Flush - Normal Saline IVF 10 ml PRN PRN Administration Saline Flush Tramadol HCl 50 mg 01/13/20 16:47 01/17/20 04:36 Ultram PO 50 mg Q6H PRN Administration Mild Pain (1-3) - Exam Eye: anicteric sclera ENT: moist mucosa Neck: supple Heart: RRR Respiratory: CTAB Gastrointestinal: soft, non-tender Extremities - other findings: s/p colleen BKA Skin - other findings: as documented Psychiatric: lethargic Hosp A/P - Plan Hosp A/P (1) Cellulitis and abscess of leg Code(s): L03.119 - CELLULITIS OF UNSPECIFIED PART OF LIMB; L02.419 - CUTANEOUS ABSCESS OF LIMB, UNSPECIFIED Status: Acute (2) Uncontrolled pain Code(s): R52 - PAIN, UNSPECIFIED Status: Acute (3) Dyslipidemia Code(s): E78.5 - HYPERLIPIDEMIA, UNSPECIFIED Status: Chronic (4) HTN (hypertension) Code(s): I10 - ESSENTIAL (PRIMARY) HYPERTENSION Status: Chronic Qualifiers: Hypertension type: essential hypertension Qualified Code(s): I10 - Essential (primary) hypertension (5) DM type 2 causing CKD stage 3 Code(s): E11.22 - TYPE 2 DIABETES MELLITUS W DIABETIC CHRONIC KIDNEY DISEASE; N18.3 - CHRONIC KIDNEY DISEASE, STAGE 3 (MODERATE) Status: Chronic Qualifiers: Diabetes mellitus chcf insulin use: with terminal system operator use Qualified Code( s): E11.22 - Type 2 diabetes mellitus with diabetic chronic kidney disease; N18.3 - Chronic kidney disease, stage 3 (moderate); Z79.4 - group home (current) use of insulin - Plan Increase amlodipine to 10 mg daily. Increase Lantus to 12 units SC BID Continue IV vancomycin, meropenem and micafungin
[2020-01-17] MEDS: Micafungin 100 MG in Sodium Chloride 0.9% 100 ML IVPB SCH (16:49)
[2020-01-17] MEDS: Atorvastatin Calcium 40 MG TAB PO SCH (20:31)
[2020-01-17 23:50] LABS: Vancomycin, Random 18.4 ug/mL (See Comment)
[2020-01-18] MEDS: Fentanyl 100 MCG/2 ML VIAL SLOW IVP PRN ×2 (01:28→03:52)
[2020-01-18] MEDS: traMADol HCl 50 MG TAB PO PRN ×2 (03:49→22:22)
[2020-01-18] MEDS: Lisinopril 5 MG TAB PO SCH (08:45)
[2020-01-18] MEDS: Aspirin Chewable 81 MG TAB PO SCH (08:45)
[2020-01-18] MEDS: Metoprolol Tartrate 25 MG TAB PO SCH ×2 (08:46→20:01)
[2020-01-18] MEDS: MEROPENEM 1 GM/50 ML 1 GM in Premix Bag 1 BAG IVPB SCH ×2 (08:46→20:02)
[2020-01-18] MEDS: Amlodipine 10 MG TAB PO SCH (08:46)
[2020-01-18] MEDS: Insulin Glargine 10 UNITS in Pre-Filled Syringe 1 EACH SC SCH ×2 (08:46→20:02)
[2020-01-18] MEDS: HYDROcodone/Acetaminophen 5/325 mg Tablet PO PRN ×2 (08:47→20:00)
[2020-01-18] MEDS: Polyethylene Glycol 3350 17 GM Packet PO SCH (10:25)
[2020-01-18 11:59] LABS: Vancomycin, Random 15.2 ug/mL (See Comment)
[2020-01-18] MEDS: Insulin Regular 300 UNITS/3 ML VIAL SC PRN ×2 (12:23→16:28)
[2020-01-18] MEDS ORDERED: Vancomycin HCl 500 MG in Sodium Chloride 0.9% 100 ML IVPB SCH (12:30)
[2020-01-18] MEDS: Micafungin 100 MG in Sodium Chloride 0.9% 100 ML IVPB SCH (16:28)
[2020-01-18] MEDS: Atorvastatin Calcium 40 MG TAB PO SCH (20:01)
[2020-01-18] MEDS ORDERED: Metoprolol Tartrate 25 MG TAB PO SCH (21:30)
--- NOTE | 2020-01-18 21:31 | PDOC.HOSPP ---
- Subjective Encounter Date: 01/18/20 Encounter Time: 18:40 Subjective: Pt seen for followup re: cellulitis. c/o pain R BKA stump. - Objective Vital Signs & Weight: Vital Signs (12 hours) Temp Pulse Resp BP BP Pulse Ox 01/18/20 19:26 98.5 F 76 16 174/72 H 100 01/18/20 16:00 99 01/18/20 15:17 98.5 F 67 16 156/69 H 99 01/18/20 12:00 93 L 01/18/20 11:06 98.5 F 64 16 162/67 H 93 L Weight Admit Weight 125 lb Weight 125 lb I&O: 01/17/20 01/18/20 01/19/20 06:59 06:59 06:59 Intake Total 1350 1290 Balance 1350 1290 Result Diagrams: 01/16/20 04:45 01/17/20 23:13 Additional Labs: Accuchecks 01/18/20 01/18/20 01/18/20 21:06 15:23 11:12 POC Glucose 309 H 167 H 192 H 01/18/20 05:53 POC Glucose 107 Labs and MARs reviewed by ga Hospitalist ROS - Review of Systems Cardiovascular: denies: chest pain, palpitations, orthopnea, paroxysmal noc. dyspnea, edema, light headedness Musculoskeletal: reports: leg pain. denies: neck pain, shoulder pain, arm pain , back pain, hand pain, foot pain - Medication Medications: Active Medications Generic Name Dose Route Start Last Admin Trade Name Freq PRN Reason Stop Dose Admin Hydrocodone Bitart/Acetaminophen 1 tab 01/13/20 16:47 01/15/20 18:21 [place] 7.5/325 PO 1 tab Q6H PRN Administration Moderate Pain (4-6) Hydrocodone Bitart/Acetaminophen 2 tab 01/15/20 21:00 01/18/20 20:00 [place] 5/325 PO 2 tab Q6H PRN Administration Moderate to Severe Pain (6-10) Amlodipine Besylate 10 mg 01/18/20 09:00 01/18/20 08:46 Norvasc PO 10 mg DAILY VICKY Administration Aspirin 81 mg 01/14/20 09:00 01/18/20 08:45 Aspirin Chewable PO 81 mg DAILY VICKY Administration Atorvastatin Calcium 40 mg 01/14/20 21:00 01/18/20 20:01 Lipitor PO 40 mg HS VICKY Administration Fentanyl 25 mcg 01/13/20 16:47 01/18/20 03:52 Sublimaze SLOW IVP 25 mcg Q2H PRN Administration Severe Pain (7-10) Hydralazine HCl 10 mg 01/13/20 17:59 01/17/20 04:35 Apresoline SLOW IVP 10 mg Q4H PRN Administration SBP Greater Than 180 Micafungin Sodium 100 mg/ 100 mls @ 100 mls/hr 01/16/20 17:00 01/18/20 16:28 Sodium Chloride IVPB 100 mls 1700 VICKY Administration Meropenem 1 gm/ Device 50 mls @ 200 mls/hr 01/16/20 21:00 01/18/20 20:02 IVPB 50 mls Q12HR VICKY Administration Insulin Human Regular 0 units 01/13/20 16:52 01/18/20 16:28 Humulin R SC 2 unit .MODERATE SLIDING SC PRN Administration MODERATE SLIDING SCALE Protocol Lisinopril 5 mg 01/15/20 09:00 01/18/20 08:45 Zestril PO 5 mg DAILY VICKY Administration Ondansetron HCl 4 mg 01/15/20 20:58 01/16/20 00:46 Zofran IVP 4 mg Q6H PRN Administration Nausea/Vomiting Polyethylene Glycol 17 gm 01/15/20 09:00 01/18/20 10:25 Miralax PO 17 gm DAILY VICKY Administration Sertraline HCl 50 mg 01/13/20 21:00 01/18/20 20:01 Zoloft PO 50 mg HS VICKY Administration Sodium Chloride 10 ml 01/14/20 21:00 01/18/20 10:25 Flush - Normal Saline IVF 10 ml Q12HR VICKY Administration Sodium Chloride 10 ml 01/14/20 09:38 01/15/20 11:58 Flush - Normal Saline IVF 10 ml PRN PRN Administration Saline Flush Tramadol HCl 50 mg 01/13/20 16:47 01/18/20 03:49 Ultram PO 50 mg Q6H PRN Administration Mild Pain (1-3) - Exam General Appearance: awake alert Eye: anicteric sclera ENT: normocephalic atraumatic Neck: supple Heart: RRR Respiratory: CTAB Gastrointestinal: soft Musculoskeletal - other findings: Jak BKA Psychiatric: normal affect, normal behavior Hosp A/P - Plan Hosp A/P (1) Cellulitis and abscess of leg Code(s): L03.119 - CELLULITIS OF UNSPECIFIED PART OF LIMB; L02.419 - CUTANEOUS ABSCESS OF LIMB, UNSPECIFIED Status: Acute (2) Uncontrolled pain Code(s): R52 - PAIN, UNSPECIFIED Status: Acute (3) Dyslipidemia Code(s): E78.5 - HYPERLIPIDEMIA, UNSPECIFIED Status: Chronic (4) HTN (hypertension) Code(s): I10 - ESSENTIAL (PRIMARY) HYPERTENSION Status: Chronic Qualifiers: Hypertension type: essential hypertension Qualified Code(s): I10 - Essential (primary) hypertension (5) DM type 2 causing CKD stage 3 Code(s): E11.22 - TYPE 2 DIABETES MELLITUS W DIABETIC CHRONIC KIDNEY DISEASE; N18.3 - CHRONIC KIDNEY DISEASE, STAGE 3 (MODERATE) Status: Chronic Qualifiers: Diabetes mellitus long term care phlebotomist insulin use: with long term care phlebotomist use Qualified Code( s): E11.22 - Type 2 diabetes mellitus with diabetic chronic kidney disease; N18.3 - Chronic kidney disease, stage 3 (moderate); Z79.4 - vermin exterminator (current) use of insulin - Plan Increased amlodipine to 10 mg daily yesterday, increase metoprolol to 37.5 mg BID. Continue lisinopril. Increase Lantus to 12 units SC BID Pt is on IV vancomycin, meropenem and micafungin Trial lidoderm.
[2020-01-18] MEDS: Lidocaine 5% Patch TD SCH (23:37)
[2020-01-19] MEDS: HYDROcodone/Acetaminophen 5/325 mg Tablet PO PRN ×3 (01:09→18:29)
[2020-01-19] MEDS: Fentanyl 100 MCG/2 ML VIAL SLOW IVP PRN ×2 (05:34→22:27)
[2020-01-19] MEDS: Lisinopril 5 MG TAB PO SCH (08:36)
[2020-01-19] MEDS: Metoprolol Tartrate 25 MG TAB PO SCH ×2 (08:36→20:08)
[2020-01-19] MEDS: Aspirin Chewable 81 MG TAB PO SCH (08:37)
[2020-01-19] MEDS: Amlodipine 10 MG TAB PO SCH (08:37)
[2020-01-19] MEDS: Insulin Glargine 12 UNITS in Pre-Filled Syringe 1 EACH SC SCH ×2 (08:40→20:12)
[2020-01-19] MEDS: MEROPENEM 1 GM/50 ML 1 GM in Premix Bag 1 BAG IVPB SCH ×2 (08:48→20:09)
[2020-01-19] MEDS: Polyethylene Glycol 3350 17 GM Packet PO SCH (08:48)
[2020-01-19] MEDS: Lidocaine Patch Removal 1 EACH TOP SCH (11:40)
[2020-01-19 11:52] VITALS: BMI 23.9
[2020-01-19 12:26] LABS: Vancomycin, Random 15.9 ug/mL (See Comment)
[2020-01-19] MEDS ORDERED: Vancomycin HCl 500 MG in Sodium Chloride 0.9% 100 ML IVPB SCH (12:45)
[2020-01-19] MEDS: Insulin Regular 300 UNITS/3 ML VIAL SC PRN ×3 (14:17→20:12)
--- NOTE | 2020-01-19 14:24 | PDOC.HOSPP ---
- Subjective Encounter Date: 01/19/20 Encounter Time: 14:22 Subjective: Feeling better in general. Pain has improved over the past three days. None today. - Objective Vital Signs & Weight: Vital Signs (12 hours) Temp Pulse Resp BP Pulse Ox 01/19/20 11:04 98.5 F 62 16 191/74 H 98 01/19/20 08:37 64 01/19/20 08:36 64 01/19/20 07:10 97.6 F 64 14 175/74 H 98 01/19/20 03:05 98.2 F 67 18 150/62 H 99 Weight Admit Weight 125 lb Weight 130 lb 14.4 oz I&O: 01/18/20 01/19/20 01/20/20 06:59 06:59 06:59 Intake Total 1350 1410 Balance 1350 1410 Result Diagrams: 01/16/20 04:45 01/19/20 04:45 Additional Labs: Accuchecks 01/19/20 01/19/20 01/18/20 10:36 05:12 21:06 POC Glucose 194 H 106 309 H 01/18/20 15:23 POC Glucose 167 H Hospitalist ROS - Medication Medications: Active Medications Generic Name Dose Route Start Last Admin Trade Name Freq PRN Reason Stop Dose Admin Hydrocodone Bitart/Acetaminophen 1 tab 01/13/20 16:47 01/15/20 18:21 [place] 7.5/325 PO 1 tab Q6H PRN Administration Moderate Pain (4-6) Hydrocodone Bitart/Acetaminophen 2 tab 01/15/20 21:00 01/19/20 08:34 [place] 5/325 PO 2 tab Q6H PRN Administration Moderate to Severe Pain (6-10) Amlodipine Besylate 10 mg 01/18/20 09:00 01/19/20 08:37 Norvasc PO 10 mg DAILY VICKY Administration Aspirin 81 mg 01/14/20 09:00 01/19/20 08:37 Aspirin Chewable PO 81 mg DAILY VICKY Administration Atorvastatin Calcium 40 mg 01/14/20 21:00 01/18/20 20:01 Lipitor PO 40 mg HS VICKY Administration Fentanyl 25 mcg 01/13/20 16:47 01/19/20 05:34 Sublimaze SLOW IVP 25 mcg Q2H PRN Administration Severe Pain (7-10) Hydralazine HCl 10 mg 01/13/20 17:59 01/17/20 04:35 Apresoline SLOW IVP 10 mg Q4H PRN Administration SBP Greater Than 180 Micafungin Sodium 100 mg/ 100 mls @ 100 mls/hr 01/16/20 17:00 01/18/20 16:28 Sodium Chloride IVPB 100 mls 1700 VICKY Administration Meropenem 1 gm/ Device 50 mls @ 200 mls/hr 01/16/20 21:00 01/19/20 08:48 IVPB 50 mls Q12HR VICKY Administration Insulin Glargine 12 units/ 0.12 mls @ 0 mls/hr 01/19/20 09:00 01/19/20 08:40 Miscellaneous Medication SC 0.12 mls BID VICKY Administration Vancomycin HCl 500 mg/ Sodium 100 mls @ 100 mls/hr 01/19/20 12:45 01/19/20 14 :13 Chloride IVPB 01/19/20 14:45 100 mls NOW VICKY Administration Insulin Human Regular 0 units 01/13/20 16:52 01/18/20 16:28 Humulin R SC 2 unit .MODERATE SLIDING SC PRN Administration MODERATE SLIDING SCALE Protocol Lidocaine 1 patch 01/18/20 22:00 01/18/20 23:37 Lidoderm 5% Patch TD 1 patch Q24HR VICKY Administration Lisinopril 5 mg 01/15/20 09:00 01/19/20 08:36 Zestril PO 5 mg DAILY VICKY Administration Metoprolol Tartrate 37.5 mg 01/19/20 09:00 01/19/20 08:36 Lopressor PO 37.5 mg BID VICKY Administration Miscellaneous Medication 1 each 01/19/20 10:00 01/19/20 11:40 Lidocaine Patch Removal TOP Not Given 1000 VICKY Ondansetron HCl 4 mg 01/15/20 20:58 01/16/20 00:46 Zofran IVP 4 mg Q6H PRN Administration Nausea/Vomiting Polyethylene Glycol 17 gm 01/15/20 09:00 01/19/20 08:48 Miralax PO Not Given DAILY VICKY Sertraline HCl 50 mg 01/13/20 21:00 01/18/20 20:01 Zoloft PO 50 mg HS VICKY Administration Sodium Chloride 10 ml 01/14/20 21:00 01/19/20 08:56 Flush - Normal Saline IVF 10 ml Q12HR VICKY Administration Sodium Chloride 10 ml 01/14/20 09:38 01/15/20 11:58 Flush - Normal Saline IVF 10 ml PRN PRN Administration Saline Flush Tramadol HCl 50 mg 01/13/20 16:47 01/18/20 22:22 Ultram PO 50 mg Q6H PRN Administration Mild Pain (1-3) - Exam General Appearance: NAD, awake alert Heart: RRR, no murmur, no gallops, no rubs, normal peripheral pulses Respiratory: CTAB, no wheezes, no rales, no ronchi, normal chest expansion, no tachypnea, normal percussion Gastrointestinal: soft, non-tender, non-distended, normal bowel sounds, no palpable masses, no hepatomegaly, no splenomegaly, no bruit Extremities - other findings: BKA stump with sl less erythema. Musculoskeletal: normal tone Psychiatric: normal affect, normal behavior, A&O x 3 Hosp A/P (1) Cellulitis and abscess of leg Code(s): L03.119 - CELLULITIS OF UNSPECIFIED PART OF LIMB; L02.419 - CUTANEOUS ABSCESS OF LIMB, UNSPECIFIED Status: Acute (2) DM type 2 causing CKD stage 3 Code(s): E11.22 - TYPE 2 DIABETES MELLITUS W DIABETIC CHRONIC KIDNEY DISEASE; N18.3 - CHRONIC KIDNEY DISEASE, STAGE 3 (MODERATE) Status: Chronic Qualifiers: Diabetes mellitus alf insulin use: with alf use Qualified Code( s): E11.22 - Type 2 diabetes mellitus with diabetic chronic kidney disease; N18.3 - Chronic kidney disease, stage 3 (moderate); Z79.4 - remote computer terminal operator (current) use of insulin (3) CKD (chronic kidney disease) stage 3, GFR 30-59 ml/min Code(s): N18.3 - CHRONIC KIDNEY DISEASE, STAGE 3 (MODERATE) Status: Acute (4) DM type 2 (diabetes mellitus, type 2) Status: Acute (5) PVD (peripheral vascular disease) Code(s): I73.9 - PERIPHERAL VASCULAR DISEASE, UNSPECIFIED Status: Acute (6) Dyslipidemia Code(s): E78.5 - HYPERLIPIDEMIA, UNSPECIFIED Status: Chronic (7) HTN (hypertension) Code(s): I10 - ESSENTIAL (PRIMARY) HYPERTENSION Status: Chronic Qualifiers: Hypertension type: essential hypertension Qualified Code(s): I10 - Essential (primary) hypertension - Plan Discussed with ID. Back to where she was at admission after worsening. Pain resolved. Continue IV abx. Anticipate PICC. BP still elevated. Add apresoline po. Continue ACEI (low dose in light of renal function), BB, amlodipine. Blood sugars still slightly high. May need to increase lantus further.
--- NOTE | 2020-01-19 14:49 | PRG ---
DATE OF SERVICE: 01/19/2020 SUBJECTIVE: Feeling better today, less pain than before. No respiratory symptoms or abdominal pain. No diarrhea. OBJECTIVE: VITAL SIGNS: She continues to be afebrile, BP 190/74, pulse 62. EXTREMITIES: The right BKA site is better now. There is still one area that has a little bit of a fluctuant blistering look to it right at the center that are the areas of necrosis along the margin of the suture line. The erythema is not as bright as before. There is less tenderness to palpation. LUNGS: Clear S2. Regular rate. ABDOMEN: Soft. LABORATORY DATA: White cell count is at 11.3 on January 15 and needs to be repeated. Creatinine was 1.57 with a GFR at 32 and needs to be repeated. The MRI showed some findings of concern for myositis. There was some signal alteration in the remaining distal tibia and fibula at the surgical margins. This probably refracts bone remodeling rather than osteomyelitis. ASSESSMENT AND DISCUSSION: Type 2 diabetes, peripheral vascular disease, failed revascularization, bilateral [id number] amputations with an inflammatory process at the stump site, right side, worsening inflammatory process, no improvement. We will continue meropenem, micafungin, and vancomycin. No surgical intervention for now. She will either need a PICC line or a Nunez catheter. Job ID: [id number]
[2020-01-19 14:55] LABS: #Basophils 0.1 thou/uL (0.0-0.2); #Eosinphils 0.4 thou/uL (0.0-0.7); #Lymphocytes 2.2 thou/uL (1.20-3.40); #Monocytes 0.8 thou/uL (0.11-0.59); #Neutrophils 7.2 thou/uL (1.40-6.50); %Basophils 0.6 % (0.0-1.0); %Eosinophils 3.8 % (0.0-10.0); %Lymphocytes 20.7 % (21.0-51.0); %Monocytes 7.6 % (0.0-10.0); %Neutrophils 67.4 % (42.0-75.0); Hemoglobin 10.5 g/dL (12.0-16.0); Mean Corpuscular HGB CONC 32.8 g/dL (32.0-36.0); Mean Corpuscular Hemoglobin 28.9 pg (27.0-31.0); Mean Corpuscular Volume 88.3 fL (78.0-98.0); Mean Platelet Volume 7.4 fL (7.4-10.4); Platelet Count 420 thou/uL (130-400); RBC Distribution Width 13.1 % (11.5-14.5); Red Blood Cell (RBC) Count 3.63 mill/uL (4.20-5.40); White Blood Cell (WBC) Count 10.7 thou/uL (4.8-10.8)
[2020-01-19 15:13] LABS: Anion Gap 14 mmol/L (10-20); BUN (Urea Nitrogen) 33 mg/dL (9.8-20.1); Calc. Creatinine Clearance 30 mL/min (70-130); Calcium 8.9 mg/dL (7.8-10.44); Carbon Dioxide 23 mmol/L (23-31); Chloride 106 mmol/L (98-107); Estimated GFR-MDRD 33; Glucose 186 mg/dL (83-110); Potassium 4.8 mmol/L (3.5-5.1); Sodium 138 mmol/L (136-145)
[2020-01-19] MEDS: hydrALAZINE 25 MG TAB PO SCH ×2 (16:08→20:07)
[2020-01-19] MEDS: Micafungin 100 MG in Sodium Chloride 0.9% 100 ML IVPB SCH (16:48)
[2020-01-19] MEDS: Atorvastatin Calcium 40 MG TAB PO SCH (20:07)
[2020-01-19] MEDS: Lidocaine 5% Patch TD SCH (22:27)
[2020-01-20] MEDS: HYDROcodone/Acetaminophen 5/325 mg Tablet PO PRN ×3 (00:24→21:12)
[2020-01-20] MEDS: Fentanyl 100 MCG/2 ML VIAL SLOW IVP PRN (04:15)
[2020-01-20] MEDS: traMADol HCl 50 MG TAB PO PRN ×2 (05:03→18:30)
[2020-01-20] MEDS: Polyethylene Glycol 3350 17 GM Packet PO SCH (09:37)
[2020-01-20] MEDS: Aspirin Chewable 81 MG TAB PO SCH (09:43)
[2020-01-20] MEDS: Lisinopril 5 MG TAB PO SCH (09:43)
[2020-01-20] MEDS: Metoprolol Tartrate 25 MG TAB PO SCH ×2 (09:44→21:12)
[2020-01-20] MEDS: hydrALAZINE 25 MG TAB PO SCH ×3 (09:44→21:13)
[2020-01-20] MEDS: Amlodipine 10 MG TAB PO SCH (09:44)
[2020-01-20] MEDS: MEROPENEM 1 GM/50 ML 1 GM in Premix Bag 1 BAG IVPB SCH (09:45)
[2020-01-20] MEDS: Insulin Glargine 12 UNITS in Pre-Filled Syringe 1 EACH SC SCH ×2 (11:46→21:13)
[2020-01-20] MEDS: Lidocaine Patch Removal 1 EACH TOP SCH (11:47)
[2020-01-20 12:30] LABS: Vancomycin, Random 17.9 ug/mL (See Comment)
[2020-01-20] MEDS ORDERED: Vancomycin HCl 500 MG in Sodium Chloride 0.9% 100 ML IVPB SCH (13:00)
[2020-01-20] MEDS: Insulin Regular 300 UNITS/3 ML VIAL SC PRN ×2 (13:25→16:43)
--- NOTE | 2020-01-20 14:32 | PDOC.HOSPP ---
- Subjective Encounter Date: 01/20/20 Subjective: Feeling a little better. Thinks the stump it a little better. No pain. - Objective Vital Signs & Weight: Vital Signs (12 hours) Temp Pulse Resp BP Pulse Ox 01/20/20 11:33 98.6 F 73 16 157/65 H 99 01/20/20 09:44 74 01/20/20 09:43 74 01/20/20 07:49 98.6 F 74 18 171/77 H 98 01/20/20 03:13 98.3 F 62 16 152/65 H 99 Weight Admit Weight 125 lb Weight 130 lb 14.4 oz I&O: 01/19/20 01/20/20 01/21/20 06:59 06:59 06:59 Intake Total 1410 2150 0 Balance 1410 2150 0 Result Diagrams: 01/19/20 14:45 01/20/20 04:50 Additional Labs: Accuchecks 01/20/20 01/20/20 01/19/20 11:04 05:25 20:09 POC Glucose 209 H 75 237 H 01/19/20 14:52 POC Glucose 232 H Hospitalist ROS - Medication Medications: Active Medications Generic Name Dose Route Start Last Admin Trade Name Freq PRN Reason Stop Dose Admin Hydrocodone Bitart/Acetaminophen 1 tab 01/13/20 16:47 01/15/20 18:21 [place] 7.5/325 PO 1 tab Q6H PRN Administration Moderate Pain (4-6) Hydrocodone Bitart/Acetaminophen 2 tab 01/15/20 21:00 01/20/20 13:45 [place] 5/325 PO 2 tab Q6H PRN Administration Moderate to Severe Pain (6-10) Amlodipine Besylate 10 mg 01/18/20 09:00 01/20/20 09:44 Norvasc PO 10 mg DAILY VICKY Administration Aspirin 81 mg 01/14/20 09:00 01/20/20 09:43 Aspirin Chewable PO 81 mg DAILY VICKY Administration Atorvastatin Calcium 40 mg 01/14/20 21:00 01/19/20 20:07 Lipitor PO 40 mg HS VICKY Administration Fentanyl 25 mcg 01/13/20 16:47 01/20/20 04:15 Sublimaze SLOW IVP 25 mcg Q2H PRN Administration Severe Pain (7-10) Hydralazine HCl 10 mg 01/13/20 17:59 01/17/20 04:35 Apresoline SLOW IVP 10 mg Q4H PRN Administration SBP Greater Than 180 Hydralazine HCl 25 mg 01/19/20 15:00 01/20/20 09:44 Apresoline PO 25 mg TID VICKY Administration Micafungin Sodium 100 mg/ 100 mls @ 100 mls/hr 01/16/20 17:00 01/19/20 16:48 Sodium Chloride IVPB 100 mls 1700 VICKY Administration Meropenem 1 gm/ Device 50 mls @ 200 mls/hr 01/16/20 21:00 01/20/20 09:45 IVPB 50 mls Q12HR VICKY Administration Insulin Glargine 12 units/ 0.12 mls @ 0 mls/hr 01/19/20 09:00 01/20/20 11:46 Miscellaneous Medication SC 0.12 mls BID VICKY Administration Vancomycin HCl 500 mg/ Sodium 100 mls @ 100 mls/hr 01/20/20 13:00 01/20/20 13 :35 Chloride IVPB 01/20/20 15:00 100 mls 1300 VICKY Administration Insulin Human Regular 0 units 01/13/20 16:52 01/20/20 13:25 Humulin R SC 4 unit .MODERATE SLIDING SC PRN Administration MODERATE SLIDING SCALE Protocol Lidocaine 1 patch 01/18/20 22:00 01/19/20 22:27 Lidoderm 5% Patch TD 1 patch Q24HR VICKY Administration Lisinopril 5 mg 01/15/20 09:00 01/20/20 09:43 Zestril PO 5 mg DAILY VICKY Administration Metoprolol Tartrate 37.5 mg 01/19/20 09:00 01/20/20 09:44 Lopressor PO 37.5 mg BID VICKY Administration Miscellaneous Medication 1 each 01/19/20 10:00 01/20/20 11:47 Lidocaine Patch Removal TOP Not Given 1000 VICKY Ondansetron HCl 4 mg 01/15/20 20:58 01/16/20 00:46 Zofran IVP 4 mg Q6H PRN Administration Nausea/Vomiting Polyethylene Glycol 17 gm 01/15/20 09:00 01/20/20 09:37 Miralax PO Not Given DAILY [facility] Sertraline HCl 50 mg 01/13/20 21:00 01/19/20 20:08 Zoloft PO 50 mg HS VICKY Administration Sodium Chloride 10 ml 01/14/20 21:00 01/20/20 11:51 Flush - Normal Saline IVF 10 ml Q12HR VICKY Administration Sodium Chloride 10 ml 01/14/20 09:38 01/15/20 11:58 Flush - Normal Saline IVF 10 ml PRN PRN Administration Saline Flush Tramadol HCl 50 mg 01/19/20 15:17 01/20/20 05:03 Ultram PO 50 mg Q12H PRN Administration Mild Pain (1-3) - Exam General Appearance: NAD, awake alert Heart: RRR, no murmur, no gallops, no rubs, normal peripheral pulses Respiratory: CTAB, no wheezes, no rales, no ronchi, normal chest expansion, no tachypnea, normal percussion Gastrointestinal: soft, non-tender, non-distended, normal bowel sounds, no palpable masses, no hepatomegaly, no splenomegaly, no bruit Extremities - other findings: Stump with less ertythema. Bullae along the the surgical site, but unch. Neurological: no new deficit Psychiatric: normal affect, normal behavior, A&O x 3 Hosp A/P (1) Cellulitis and abscess of leg Code(s): L03.119 - CELLULITIS OF UNSPECIFIED PART OF LIMB; L02.419 - CUTANEOUS ABSCESS OF LIMB, UNSPECIFIED Status: Acute (2) DM type 2 causing CKD stage 3 Code(s): E11.22 - TYPE 2 DIABETES MELLITUS W DIABETIC CHRONIC KIDNEY DISEASE; N18.3 - CHRONIC KIDNEY DISEASE, STAGE 3 (MODERATE) Status: Chronic Qualifiers: Diabetes mellitus half-way insulin use: with half-way use Qualified Code( s): E11.22 - Type 2 diabetes mellitus with diabetic chronic kidney disease; N18.3 - Chronic kidney disease, stage 3 (moderate); Z79.4 - MCFP (current) use of insulin (3) CKD (chronic kidney disease) stage 3, GFR 30-59 ml/min Code(s): N18.3 - CHRONIC KIDNEY DISEASE, STAGE 3 (MODERATE) Status: Acute (4) DM type 2 (diabetes mellitus, type 2) Status: Acute (5) PVD (peripheral vascular disease) Code(s): I73.9 - PERIPHERAL VASCULAR DISEASE, UNSPECIFIED Status: Acute (6) Dyslipidemia Code(s): E78.5 - HYPERLIPIDEMIA, UNSPECIFIED Status: Chronic (7) HTN (hypertension) Code(s): I10 - ESSENTIAL (PRIMARY) HYPERTENSION Status: Chronic Qualifiers: Hypertension type: essential hypertension Qualified Code(s): I10 - Essential (primary) hypertension - Plan Cellulitis of stump: Discussed with ID. Appears to have some clear improvement since yesterday. Pain resolved. Continue IV abx. Will avoid PICC to preserve veins for possible future need for dialysis fistula. Dr. Smith to place a mediport. HTN: BP still elevated, but improved. No just isolated systolic htn. No change in meds. Continue ACEI (low dose in light of renal function), BB, amlodipine, apresoline. DM: Blood sugars still slightly high. Labile. No change. CKD III: Stable. Very slightly better today.
[2020-01-20] MEDS: Micafungin 100 MG in Sodium Chloride 0.9% 100 ML IVPB SCH (17:21)
[2020-01-20] MEDS ORDERED: MEROPENEM 1 GM/50 ML 1 GM in Premix Bag 1 BAG IVPB SCH (21:00)
[2020-01-20] MEDS: Atorvastatin Calcium 40 MG TAB PO SCH (21:13)
[2020-01-20] MEDS: Lidocaine 5% Patch TD SCH (21:14)
[2020-01-21] MEDS: HYDROcodone/Acetaminophen 5/325 mg Tablet PO PRN ×2 (05:24→16:19)
[2020-01-21] MEDS: Insulin Regular 300 UNITS/3 ML VIAL SC PRN (06:38)
[2020-01-21] MEDS ORDERED: Lidocaine 1% w/Epinephrine 1:100K 20 ML VIAL ONE (08:20)
[2020-01-21] MEDS ORDERED: Sodium Chloride 0.9% 0 ML ONE (08:20)
[2020-01-21] MEDS ORDERED: Fentanyl 100 MCG/2 ML VIAL ONE ×2 (08:30→10:01)
[2020-01-21] MEDS: Metoprolol Tartrate 25 MG TAB PO SCH ×2 (09:00→20:43)
[2020-01-21] MEDS: Amlodipine 10 MG TAB PO SCH (09:43)
[2020-01-21] MEDS: Insulin Glargine 12 UNITS in Pre-Filled Syringe 1 EACH SC SCH ×2 (09:43→20:43)
[2020-01-21] MEDS: Lisinopril 5 MG TAB PO SCH (09:44)
[2020-01-21] MEDS ORDERED: Midazolam HCl 2 mg/2 ml Vial ONE (10:01)
[2020-01-21] MEDS ORDERED: Ondansetron HCl/PF 4 MG/2 ML Vial IVP PRN (11:04)
[2020-01-21] MEDS: MEROPENEM 1 GM/50 ML 1 GM in Premix Bag 1 BAG IVPB SCH ×2 (11:42→20:43)
[2020-01-21] MEDS: Polyethylene Glycol 3350 17 GM Packet PO SCH (11:42)
[2020-01-21] MEDS: Aspirin Chewable 81 MG TAB PO SCH (11:44)
[2020-01-21] MEDS: hydrALAZINE 25 MG TAB PO SCH ×3 (11:44→20:42)
[2020-01-21 12:21] LABS: Vancomycin, Trough 12.6 ug/mL
[2020-01-21] MEDS ORDERED: Vancomycin HCl 500 MG in Sodium Chloride 0.9% 100 ML IVPB SCH (13:00)
--- NOTE | 2020-01-21 13:21 | OP ---
DATE OF PROCEDURE: 01/21/2020 PREOPERATIVE DIAGNOSIS: Poor venous access and requirement for long-term antibiotic care. PROCEDURE PERFORMED: Right internal jugular MediPort placement. ANESTHESIA: Local with sedation. DESCRIPTION OF PROCEDURE: After adequate sedation had been performed, she was prepped and draped and lidocaine was used to infiltrate the site for the MediPort pocket, then carried up to the level of the supraclavicular neck. Ultrasound-guided puncture of the internal jugular vein was accomplished on first past, following which wire was inserted under fluoroscopy. Following this, the pocket for the MediPort was made and the catheter tunneled up from the chest wall to the IJ site. Peel-Away sheath was then introduced under fluoroscopic guidance, following which the catheter was introduced through the sheath and the sheath peeled away. Catheter was withdrawn under fluoroscopy to a correct position. At which point, it was connected to the MediPort, which was placed in the pocket and the wound closed in layers. Fluoro time 21.7 seconds. The patient tolerated the procedure well after skin closure. Job ID: [id number]
--- NOTE | 2020-01-21 14:31 | PDOC.HOSPP ---
- Subjective Encounter Date: 01/21/20 Subjective: Had mediport placed this morning. Did well. Still a little sedated. - Objective Vital Signs & Weight: Vital Signs (12 hours) Temp Pulse Resp BP Pulse Ox 01/21/20 12:09 97.2 F L 83 18 129/83 98 01/21/20 11:44 69 01/21/20 09:44 83 01/21/20 09:43 83 01/21/20 07:04 98.6 F 69 16 160/68 H 98 01/21/20 03:16 97.2 F L 70 16 156/64 H 98 Weight Admit Weight 125 lb Weight 130 lb 14.4 oz I&O: 01/20/20 01/21/20 01/22/20 06:59 06:59 06:59 Intake Total 2149 1879 Balance 2149 1879 Result Diagrams: 01/19/20 14:45 01/21/20 04:46 Additional Labs: Accuchecks 01/21/20 01/21/20 01/20/20 12:06 05:37 20:05 POC Glucose 104 210 H 173 H 01/20/20 15:49 POC Glucose 195 H Hospitalist ROS - Medication Medications: Active Medications Generic Name Dose Route Start Last Admin Trade Name Freq PRN Reason Stop Dose Admin Hydrocodone Bitart/Acetaminophen 1 tab 01/13/20 16:47 01/15/20 18:21 [place] 7.5/325 PO 1 tab Q6H PRN Administration Moderate Pain (4-6) Hydrocodone Bitart/Acetaminophen 2 tab 01/15/20 21:00 01/21/20 05:24 [place] 5/325 PO 2 tab Q6H PRN Administration Moderate to Severe Pain (6-10) Amlodipine Besylate 10 mg 01/18/20 09:00 01/21/20 09:43 Norvasc PO Not Given DAILY VICKY Aspirin 81 mg 01/14/20 09:00 01/21/20 11:44 Aspirin Chewable PO Not Given DAILY VICKY Atorvastatin Calcium 40 mg 01/14/20 21:00 01/20/20 21:13 Lipitor PO 40 mg HS VICKY Administration Fentanyl 25 mcg 01/13/20 16:47 01/20/20 04:15 Sublimaze SLOW IVP 25 mcg Q2H PRN Administration Severe Pain (7-10) Hydralazine HCl 10 mg 01/13/20 17:59 01/17/20 04:35 Apresoline SLOW IVP 10 mg Q4H PRN Administration SBP Greater Than 180 Hydralazine HCl 25 mg 01/19/20 15:00 01/21/20 11:44 Apresoline PO Not Given TID VICKY Vancomycin HCl 500 mg/ Sodium 100 mls @ 100 mls/hr 01/21/20 13:00 01/21/20 13 :49 Chloride IVPB 01/21/20 15:00 100 mls 1300 VICKY Administration Insulin Glargine 12 units/ 0.12 mls @ 0 mls/hr 01/19/20 09:00 01/21/20 09:43 Miscellaneous Medication SC Not Given BID [facility] Meropenem 1 gm/ Device 50 mls @ 200 mls/hr 01/21/20 09:00 01/21/20 11:42 IVPB Not Given Q12HR [facility] Insulin Human Regular 0 units 01/13/20 16:52 01/21/20 06:38 Humulin R SC 4 unit .MODERATE SLIDING SC PRN Administration MODERATE SLIDING SCALE Protocol Lidocaine 1 patch 01/18/20 22:00 01/20/20 21:14 Lidoderm 5% Patch TD 1 patch Q24HR [facility] Administration Lisinopril 5 mg 01/15/20 09:00 01/21/20 09:44 Zestril PO Not Given DAILY [facility] Metoprolol Tartrate 37.5 mg 01/19/20 09:00 01/20/20 21:12 Lopressor PO 37.5 mg BID [facility] Administration Miscellaneous Medication 1 each 01/19/20 10:00 01/20/20 11:47 Lidocaine Patch Removal TOP Not Given 1000 VICKY Ondansetron HCl 4 mg 01/15/20 20:58 01/16/20 00:46 Zofran IVP 4 mg Q6H PRN Administration Nausea/Vomiting Polyethylene Glycol 17 gm 01/15/20 09:00 01/21/20 11:42 Miralax PO Not Given DAILY [facility] Sertraline HCl 50 mg 01/13/20 21:00 01/20/20 21:13 Zoloft PO 50 mg HS VICKY Administration Sodium Chloride 10 ml 01/14/20 21:00 01/21/20 11:42 Flush - Normal Saline IVF Not Given Q12HR [facility] Sodium Chloride 10 ml 01/14/20 09:38 01/15/20 11:58 Flush - Normal Saline IVF 10 ml PRN PRN Administration Saline Flush Tramadol HCl 50 mg 01/19/20 15:17 01/20/20 18:30 Ultram PO 50 mg Q12H PRN Administration Mild Pain (1-3) - Exam General Appearance: NAD, awake alert Heart: RRR, no murmur, no gallops, no rubs, normal peripheral pulses Respiratory: CTAB, no wheezes, no rales, no ronchi, normal chest expansion, no tachypnea, normal percussion Gastrointestinal: soft, non-tender, non-distended, normal bowel sounds, no palpable masses, no hepatomegaly, no splenomegaly, no bruit Extremities - other findings: Stump site continues to look better. Psychiatric: somnolent Hosp A/P (1) Cellulitis and abscess of leg Code(s): L03.119 - CELLULITIS OF UNSPECIFIED PART OF LIMB; L02.419 - CUTANEOUS ABSCESS OF LIMB, UNSPECIFIED Status: Acute (2) DM type 2 causing CKD stage 3 Code(s): E11.22 - TYPE 2 DIABETES MELLITUS W DIABETIC CHRONIC KIDNEY DISEASE; N18.3 - CHRONIC KIDNEY DISEASE, STAGE 3 (MODERATE) Status: Chronic Qualifiers: Diabetes mellitus fpc insulin use: with buttermaker continuous churn use Qualified Code( s): E11.22 - Type 2 diabetes mellitus with diabetic chronic kidney disease; N18.3 - Chronic kidney disease, stage 3 (moderate); Z79.4 - terminal make up operator (current) use of insulin (3) CKD (chronic kidney disease) stage 3, GFR 30-59 ml/min Code(s): N18.3 - CHRONIC KIDNEY DISEASE, STAGE 3 (MODERATE) Status: Acute (4) DM type 2 (diabetes mellitus, type 2) Status: Acute (5) PVD (peripheral vascular disease) Code(s): I73.9 - PERIPHERAL VASCULAR DISEASE, UNSPECIFIED Status: Acute (6) Dyslipidemia Code(s): E78.5 - HYPERLIPIDEMIA, UNSPECIFIED Status: Chronic (7) HTN (hypertension) Code(s): I10 - ESSENTIAL (PRIMARY) HYPERTENSION Status: Chronic Qualifiers: Hypertension type: essential hypertension Qualified Code(s): I10 - Essential (primary) hypertension - Plan Cellulitis of stump: Discussed with ID. Appears to have some clear improvement. Pain resolved. Continue IV abx. Dr. Smith placed a mediport. Resume abx. Vanc and meropenem. Discussed with CM. Working on disposition. SNF would likely be best. Home a possible option. HTN: BP still elevated, but much improved. No just isolated systolic htn. No change in meds. Continue ACEI (low dose in light of renal function), BB, amlodipine, apresoline. DM: Blood sugars still slightly high. Labile. No change. CKD III: Stable.
[2020-01-21] MEDS: Fentanyl 100 MCG/2 ML VIAL SLOW IVP PRN (16:13)
[2020-01-21] MEDS: Lidocaine Patch Removal 1 EACH TOP SCH (17:25)
[2020-01-21] MEDS: Atorvastatin Calcium 40 MG TAB PO SCH (20:42)
[2020-01-21] MEDS: Lidocaine 5% Patch TD SCH (21:07)
[2020-01-22] MEDS: HYDROcodone/Acetaminophen 5/325 mg Tablet PO PRN ×3 (01:37→16:47)
[2020-01-22] MEDS: Insulin Regular 300 UNITS/3 ML VIAL SC PRN ×3 (06:17→15:46)
--- NOTE | 2020-01-22 06:59 | PRG ---
DATE OF SERVICE: The patient remains afebrile with blood pressure in the 150 to 180 range, which is stable for her. Her heart rate is 77. She voices no complaints this morning and is not complaining of any pain either from her MediPort, which has a dry dressing on it or from her stump. Overall, her stump is showing no real improvement and in fact, there may be a slightly increased skin ischemia over the mid to lateral portion of the proximal incision. Otherwise, she remains soft to the touch and is not tender to palpation. Plan at this time as I understand it is for outpatient IV antibiotics with consideration of higher amputation if she fails to improve. Job ID: [id number]
[2020-01-22] MEDS: Metoprolol Tartrate 25 MG TAB PO SCH (08:03)
[2020-01-22] MEDS: Insulin Glargine 12 UNITS in Pre-Filled Syringe 1 EACH SC SCH (08:03)
[2020-01-22] MEDS: MEROPENEM 1 GM/50 ML 1 GM in Premix Bag 1 BAG IVPB SCH (08:03)
[2020-01-22] MEDS: Amlodipine 10 MG TAB PO SCH (08:03)
[2020-01-22] MEDS: Polyethylene Glycol 3350 17 GM Packet PO SCH (08:03)
[2020-01-22] MEDS: hydrALAZINE 25 MG TAB PO SCH ×2 (08:04→15:46)
[2020-01-22] MEDS: Lisinopril 5 MG TAB PO SCH (08:04)
[2020-01-22] MEDS: Aspirin Chewable 81 MG TAB PO SCH (08:04)
[2020-01-22] MEDS: Lidocaine Patch Removal 1 EACH TOP SCH (09:22)
[2020-01-22 11:14] VITALS: TEMP 98.4
[2020-01-22 12:41] LABS: Vancomycin, Random 14.4 ug/mL (See Comment)
[2020-01-22] MEDS ORDERED: Vancomycin HCl 750 MG in Sodium Chloride 0.9% 250 ML 250 ML IVPB SCH (13:00)
[2020-01-22] MEDS ORDERED: Vancomycin HCl 500 MG in Sodium Chloride 0.9% 100 ML IVPB SCH (13:00)
[2020-01-22 15:17] VITALS: BP 161/67
--- NOTE | 2020-01-22 17:30 | DIS ---
DATE OF ADMISSION: 01/13/2020 DATE OF DISCHARGE: 01/22/2020 This is a 74-year-old female with diabetes, chronic kidney disease, and severe peripheral vascular disease who underwent a right BKA about 2 to 3 weeks prior to this admission. Due to severe pain and some skin changes on the stump, she was admitted to the hospital for IV antibiotics and seen in consultation by the hospitalist service and Dr. Childress with Infectious Disease. She was begun on IV antibiotics and her stump did not make any significant visual improvement, however, pain resolved. She declined having an above the knee amputation at this time and so she is going to be treated as an outpatient with IV antibiotics at long term unit and for this purpose, a MediPort was placed rather than a PICC line due to her chronic kidney disease. I will follow her up if she manages to get discharged from long term unit without having to be readmitted for an above knee amputation. Job ID: [id number]
[2020-01-23] MEDS ORDERED: Vancomycin HCl 750 MG in Sodium Chloride 0.9% 250 ML 250 ML IVPB SCH (13:00)
== END 2020-01-22 17:18 | DRG 565 ==
LOC: SJJU 16:21 → SURG A 01-16 17:50
PROVIDERS: ADMIT Thoracic Surgery (Cardiothoracic Vascular Surgery); ATTEND Internal Medicine
PROC: 0JH63XZ Insertion of Tunneled Vascular Access Device into Chest Subcutaneous Tissue and Fascia, Percutaneous Approach (ICD-10-PCS; principal; 2020-01-21)
PROC: 05HM33Z Insertion of Infusion Device into Right Internal Jugular Vein, Percutaneous Approach (ICD-10-PCS; 2020-01-21)
PROC: B513ZZA Fluoroscopy of Right Jugular Veins, Guidance (ICD-10-PCS; 2020-01-21)
PROC: B543ZZA Ultrasonography of Right Jugular Veins, Guidance (ICD-10-PCS; 2020-01-21)
DX: T87.43 Infection of amputation stump, right lower extremity (principal); L03.115 Cellulitis of right lower limb; L02.415 Cutaneous abscess of right lower limb; E11.22 Type 2 diabetes mellitus with diabetic chronic kidney disease; E78.5 Hyperlipidemia, unspecified; I12.9 Hypertensive chronic kidney disease with stage 1 through stage 4 chronic kidney disease, or unspecified chronic kidney disease; E11.51 Type 2 diabetes mellitus with diabetic peripheral angiopathy without gangrene; F32.9 Major depressive disorder, single episode, unspecified; D63.1 Anemia in chronic kidney disease; N18.3 Chronic kidney disease, stage 3 (moderate); Y83.5 Amputation of limb(s) as the cause of abnormal reaction of the patient, or of later complication, without mention of misadventure at the time of the procedure; Z90.49 Acquired absence of other specified parts of digestive tract; Z98.42 Cataract extraction status, left eye; Z98.41 Cataract extraction status, right eye; Z89.512 Acquired absence of left leg below knee; Z79.899 Other long term (current) drug therapy; Z79.4 Long term (current) use of insulin; Z90.710 Acquired absence of both cervix and uterus; Z87.891 Personal history of nicotine dependence
CPT/HCPCS: 36415; 36416; 80048; 80202; 82565; 84520; 85025; 87324; 87449; 90471; 90670; C1788; G0009; J0360; J0692; J1642; J1815; J2185; J2248; J2250; J2405; J2543; J3010; J3370; J3490; J7050

== ENCOUNTER 2020-02-05 06:03 | Inpatient (IN) | payer MEDICARE ==
--- NOTE | 2020-02-04 17:19 | HP ---
HISTORY OF PRESENT ILLNESS: This is a 74-year-old lady who underwent a left below-knee amputation and this has failed to heal. She has essentially been hospitalized since her surgery and received antibiotic treatment when the wound began to blister. The wound has progressed, and she has been in significant amount of pain and is now being admitted for intervention. Her initial surgical procedure was on 12/25, and due to poor venous access, she had a MediPort placed as well. PAST MEDICAL HISTORY: Includes chronic kidney disease, type 2 diabetes mellitus, dyslipidemia, hypertension, peripheral vascular disease. PAST SURGICAL HISTORY: Includes left foot amputation followed by [id number] amputation and more recently right [id number]-los-[id number] amputation. She has had a previous hysterectomy, cholecystectomy, and cataract surgery. MEDICATIONS: Include long-acting insulin 10 units b.i.d. Additional medications will have to be addressed on presentation as the patient do not have her current list available. PHYSICAL EXAMINATION: GENERAL: An elderly ill-appearing lady with soft carotid bruits. LUNGS: Clear. CARDIAC: Regular rate and rhythm. ABDOMEN: Soft. EXTREMITIES: She has eschar over the most of the bebuo-[id number] amputation skin to skin approximation site. There is also some surrounding erythema. PLAN: Plan at this time is for right uradu-bjk-[id number] amputation and depending on the extent of infection, we may have to stage this to debride the below the knee. Informed consent has been obtained. Job ID: [id number]
[2020-02-05] MEDS ORDERED: Fentanyl 100 MCG/2 ML VIAL ONE ×2 (07:05→08:43)
[2020-02-05] MEDS ORDERED: Midazolam HCl 2 mg/2 ml Vial ONE (07:05)
[2020-02-05] MEDS ORDERED: Ketamine 50 MG/ML (10ML VIAL) ONE (07:05)
[2020-02-05] MEDS ORDERED: Morphine 4 MG/ML VIAL ONE (09:19)
[2020-02-05] MEDS ORDERED: Ondansetron PF 4 MG/2 ML Vial IVP PRN (09:51)
[2020-02-05] MEDS ORDERED: Fentanyl 100 MCG/2 ML VIAL SLOW IVP PRN (09:51)
[2020-02-05] MEDS ORDERED: Dextrose 5% in Water 1,000 ML IV PRN (09:51)
[2020-02-05] MEDS ORDERED: Senokot S 8.6-50 MG TAB PO PRN (09:51)
[2020-02-05] MEDS ORDERED: Dextrose 50% Abboject 50 ML SYRINGE SLOW IVP PRN (09:51)
[2020-02-05] MEDS ORDERED: Insulin Regular 300 UNITS/3 ML VIAL SC PRN (09:51)
[2020-02-05 10:43] VITALS: BMI 22.8
[2020-02-05] MEDS ORDERED: Ondansetron PF 4 MG/2 ML Vial ONE (11:54)
[2020-02-05] MEDS ORDERED: PROPOFOL 200 MG/20 ML VIAL ONE (11:54)
[2020-02-05] MEDS: HYDROcodone/Acetaminophen 5/325 mg Tablet PO PRN ×3 (12:21→20:38)
[2020-02-05] MEDS: Acetaminophen 325 MG TAB PO PRN ×2 (13:39→19:47)
[2020-02-05] MEDS: Metoprolol Tartrate 25 MG TAB PO SCH (19:47)
[2020-02-05] MEDS: HumuLIN 70/30 (300 UNITS/3 ML VIAL) SC SCH (20:39)
[2020-02-05] MEDS ORDERED: Atorvastatin Calcium 40 MG TAB PO SCH (21:00)
[2020-02-06] MEDS: Acetaminophen 325 MG TAB PO PRN (00:01)
[2020-02-06] MEDS: HYDROcodone/Acetaminophen 5/325 mg Tablet PO PRN ×3 (01:18→12:11)
--- NOTE | 2020-02-06 06:54 | OP ---
DATE OF PROCEDURE: 02/05/2020 PREOPERATIVE DIAGNOSIS: Nonhealing right below knee amputation stump. PROCEDURE: Incision and debridement, right below knee amputation stump. ANESTHESIA: General. ESTIMATED BLOOD LOSS: Minimal. DESCRIPTION OF PROCEDURE: After adequate anesthesia had been obtained, the patient was prepped and draped. Discussion had been held preoperatively with the patient and a family member in regard to the possibility of just debriding the wound and not doing an amputation above the knee. After prepping and draping, the full-thickness eschar was sharply excised down to fascia. There was some necrotic subcutaneous tissue, which was debrided back to good fat. A small amount of muscle was also debrided that was nonviable. There were some bleeding sites, and at that point, it was felt that an attempt of local wound care was in order to see if she would granulate and begin healing this wound. A couple of nylon sutures were used to reapproximate the skin and subcutaneous tissue medially, and the remainder of the wound had a wound VAC placed with plans for discharge tomorrow and home wound VAC, and if the patient improves over the next couple or 3 weeks, then we will continue with local care. If she progresses, then consideration can be given to an griak-[id number]-cxqw amputation. Job ID: [id number]
[2020-02-06] MEDS ORDERED: glipiZIDE 10 MG TAB PO SCH (07:30)
[2020-02-06] MEDS: Metoprolol Tartrate 25 MG TAB PO SCH (08:47)
[2020-02-06] MEDS: HumuLIN 70/30 (300 UNITS/3 ML VIAL) SC SCH (08:48)
[2020-02-06] MEDS ORDERED: Glimepiride 4 MG TAB PO SCH (09:00)
[2020-02-06] MEDS ORDERED: Enoxaparin Sodium 30 MG/0.3 ML SYRINGE SC SCH (09:00)
[2020-02-06] MEDS ORDERED: Furosemide 20 MG TAB PO SCH (09:00)
[2020-02-06] MEDS ORDERED: Lisinopril 10 MG TAB PO SCH (09:00)
[2020-02-06] MEDS ORDERED: Aspirin 81 mg Enteric Coated Tablet PO SCH (09:00)
[2020-02-06 11:42] VITALS: BP 167/77; TEMP 98.2
== END 2020-02-06 14:50 | disposition home health service (06) | DRG 465 ==
LOC: SURG A 06:03
PROVIDERS: ADMIT Thoracic Surgery (Cardiothoracic Vascular Surgery); ATTEND Thoracic Surgery (Cardiothoracic Vascular Surgery)
PROC: 0JBN0ZZ Excision of Right Lower Leg Subcutaneous Tissue and Fascia, Open Approach (ICD-10-PCS; principal; 2020-02-05)
DX: T87.89 Other complications of amputation stump (principal); N18.9 Chronic kidney disease, unspecified; E11.22 Type 2 diabetes mellitus with diabetic chronic kidney disease; E78.5 Hyperlipidemia, unspecified; I12.9 Hypertensive chronic kidney disease with stage 1 through stage 4 chronic kidney disease, or unspecified chronic kidney disease; I73.9 Peripheral vascular disease, unspecified; Y83.5 Amputation of limb(s) as the cause of abnormal reaction of the patient, or of later complication, without mention of misadventure at the time of the procedure; Z89.511 Acquired absence of right leg below knee; Z90.710 Acquired absence of both cervix and uterus; Z90.49 Acquired absence of other specified parts of digestive tract
CPT/HCPCS: 36416; 86850; 86900; 86901; J0690; J1650; J1815; J2250; J2270; J2405; J2704; J3010

== ENCOUNTER → 2020-06-01 | Day surgery (SDC) | payer MEDICARE ==
[2020-05-28 11:52] VITALS: BMI 22.4
[~2020-06-01] MED LIST changes: +Bupivacaine PF 0.5% 30 ML VIAL ONE; +EPINEPHrine 1 MG/ML AMP ONE; -Heparin 10,000 UNITS/1 ML VIAL ONE; -Iopamidol 370 76% 100 ML VIAL ONE; +PROPOFOL 200 MG/20 ML VIAL ONE; -Protamine Sulfate 50 MG/5 ML VIAL ONE; -hydrALAZINE 20 MG/ML VIAL ONE
--- NOTE | 2020-06-02 12:56 | OP ---
DATE OF PROCEDURE: 06/01/2020 PREOPERATIVE DIAGNOSIS: Unneeded Mediport catheter. PROCEDURE: Removal of Mediport. ANESTHESIA: Sedation with local. DESCRIPTION OF PROCEDURE: After adequate sedation, 1% lidocaine was used to infiltrate the Mediport site. Previous incision was opened and the Mediport mobilized and removed including the catheter. The wound was then closed in layers and the patient tolerated the procedure well. Job ID: [id number]
== END ==
LOC: SDC 06:00
PROVIDERS: ATTEND Thoracic Surgery (Cardiothoracic Vascular Surgery)
PROC: 0JPT3WZ Removal of Totally Implantable Vascular Access Device from Trunk Subcutaneous Tissue and Fascia, Percutaneous Approach (ICD-10-PCS; principal; 2020-06-01)
DX: Z45.2 Encounter for adjustment and management of vascular access device (principal); Z79.4 Long term (current) use of insulin; Z79.82 Long term (current) use of aspirin; Z79.899 Other long term (current) drug therapy; Z89.512 Acquired absence of left leg below knee
CPT/HCPCS: 36416; J0171; J0690; J2704; J3010; S0020

== ENCOUNTER 2020-10-22 12:58 | Emergency (ER) | payer MEDICARE ==
[2020-10-22 14:37] LABS: Bacteria/HPF None Seen HPF (None Seen); Bilirubin Negative (Negative); Blood, Urine Trace (Negative); Clarity Clear (Clear); Glucose, Urine (Dipstick) Greater than 1000 mg/dL (Negative); Ketone, Urine Negative (Negative); Leukocyte Negative Leu/uL (Negative); Nitrite Negative (Negative); Protein, Urine (Dipstick) 200 mg/dL (Neg-Trace); RBC/HPF 0-3 HPF (0-3); Specific Gravity, Urine 1.014 (1.002-1.036); Squamous Epithelial None Seen HPF (0-3); Urobilinogen Normal mg/dL (Less than 2); pH, Urine 6.5 (5.0-9.0)
== END 2020-10-22 15:07 | disposition home or self-care (01) ==
LOC: ERS 12:58
DX: M54.5 Low back pain (principal); E78.5 Hyperlipidemia, unspecified; E78.00 Pure hypercholesterolemia, unspecified; E11.9 Type 2 diabetes mellitus without complications; I10 Essential (primary) hypertension; Z79.4 Long term (current) use of insulin; F17.210 Nicotine dependence, cigarettes, uncomplicated
CPT/HCPCS: 81003; 81015; 99283

== ENCOUNTER 2020-12-06 22:06 | Inpatient (IN) | payer MEDICARE ==
[~2020-12-06 22:06] MED LIST changes: -Bupivacaine PF 0.5% 30 ML VIAL ONE; -EPINEPHrine 1 MG/ML AMP ONE; -Fentanyl 100 MCG/2 ML VIAL ONE; +Iopamidol-370 76% 500 ML 1 ML ONE; -PROPOFOL 200 MG/20 ML VIAL ONE
[2020-12-06] MEDS ORDERED: Rocuronium Bromide 10 MG/ML (10ML VIAL) ONE (22:33)
[2020-12-06] MEDS ORDERED: niCARdipine 20MG In NaCl 20 MG/200 ML BAG ONE (22:33)
[2020-12-06] MEDS ORDERED: Propofol 1,000 MG/100 ML VIAL IV ONE (22:39)
[2020-12-06] MEDS ORDERED: Fentanyl CADD 100 ML IV SCH (22:45)
[2020-12-06 22:47] LABS: #Eosinphils 0.2 thou/uL (0.0-0.7); #Lymphocytes 5.3 thou/uL (1.20-3.40); #Monocytes 0.8 thou/uL (0.11-0.59); #Neutrophils 8.9 thou/uL (1.40-6.50); %Basophils 0.3 % (0.0-1.0); %Eosinophils 1.5 % (0.0-10.0); %Lymphocytes 34.6 % (21.0-51.0); %Monocytes 5.5 % (0.0-10.0); %Neutrophils 58.1 % (42.0-75.0); Hemoglobin 9.8 g/dL (12.0-16.0); Mean Corpuscular HGB CONC 33.3 g/dL (32.0-36.0); Mean Corpuscular Hemoglobin 29.9 pg (27.0-31.0); Mean Corpuscular Volume 89.7 fL (78.0-98.0); Mean Platelet Volume 8.1 fL (7.4-10.4); Platelet Count 328 thou/uL (130-400); RBC Distribution Width 11.9 % (11.5-14.5); Red Blood Cell (RBC) Count 3.28 mill/uL (4.20-5.40); White Blood Cell (WBC) Count 15.3 thou/uL (4.8-10.8)
[2020-12-06 22:56] LABS: INR-International Normal Ratio 1.2; PTT 23.5 sec (22.9-36.1); Prothrombin Time 15.3 sec (12.0-14.7)
[2020-12-06 23:02] LABS: Actual Bicarbonate (HCO3a) 13.8 mEq/L (22-28); Analyzer IN Cardio ER; Base Excess (BEa) -10.6 mEq/L (-2.0 to +3.0); CO2 Tension 26.4 mmHg (35.0-45.0); Calcium, Ionized (arterial) 1.12 mmol/L (1.12-1.30); Carboxyhemoglobin (COHb) 0.2 gm% (0.0-3.0); Hemoglobin (Hb) 9.8 g/dL (12.0-16.0); O2 Tension (PaO2), arterial 238.8 mmHg (> 70.0); Potassium - ABG Lab 3.42 mmol/L (3.70-5.30); pH, Arterial 7.34 (7.35-7.45)
[2020-12-06 23:07] LABS: Puncture Site RRA
[2020-12-06 23:14] LABS: Bacteria/HPF None Seen HPF (None Seen); Bilirubin Negative (Negative); Blood, Urine Negative (Negative); Clarity Clear (Clear); Glucose, Urine (Dipstick) Greater than 1000 mg/dL (Negative); Ketone, Urine Negative (Negative); Leukocyte Negative Leu/uL (Negative); Nitrite Negative (Negative); Protein, Urine (Dipstick) 100 mg/dL (Neg-Trace); RBC/HPF 0-3 HPF (0-3); Specific Gravity, Urine 1.017 (1.002-1.036); Squamous Epithelial None Seen HPF (0-3); Urobilinogen Normal mg/dL (Less than 2); WBC/HPF 0-3 HPF (0-3)
[2020-12-06 23:22] LABS: ALT (SGPT) 9 U/L (8-55); AST (SGOT) 22 U/L (5-34); Albumin 2.7 g/dL (3.4-4.8); Alkaline Phosphatase 133 U/L (40-110); Anion Gap 20 mmol/L (10-20); BUN (Urea Nitrogen) 29 mg/dL (9.8-20.1); Bilirubin, Total 0.2 mg/dL (0.2-1.2); CK (CPK) 49 U/L (29-168); Calc. Creatinine Clearance 0 mL/min (70-130); Calcium 7.4 mg/dL (7.8-10.44); Carbon Dioxide 15 mmol/L (23-31); Chloride 95 mmol/L (98-107); Globulin 3.5 g/dL (2.4-3.5); Protein, Total 6.2 g/dL (5.8-8.1); Sodium 126 mmol/L (136-145)
[2020-12-06 23:47] LABS: Glucose 781 mg/dL (83-110)
[2020-12-07] MEDS ORDERED: INSULIN REGULAR IN 0.9 % NACL 100 UNIT/100 ML BAG ONE (00:20)
[2020-12-07 00:35] LABS: SARS-CoV-2 NAA Rapid Test Not Detected (NotDetected)
[2020-12-07] MEDS ORDERED: Ventilator Sedation Protocol 1 EACH FS SCH (01:28)
[2020-12-07] MEDS ORDERED: niCARdipine 25 MG in Sodium Chloride 0.9% 250 ML 240 ML IVPB SCH (01:30)
[2020-12-07] MEDS ORDERED: HUMULIN R 100 UNITS in Sodium Chloride 0.9% 100 ML IVPB SCH ×2 (01:30→01:45)
[2020-12-07] MEDS ORDERED: NS 0.9% w/ 20 MEQ KCL 0 ML ONE (01:38)
[2020-12-07] MEDS ORDERED: Fentanyl BOLUS 250 ML IVPB PRN (01:45)
[2020-12-07] MEDS ORDERED: Propofol 1,000 MG/100 ML VIAL IV PRN ×2 (01:45→16:00)
[2020-12-07] MEDS ORDERED: Morphine 2 MG/ML VIAL SLOW IVP PRN (01:45)
[2020-12-07] MEDS ORDERED: Dextrose 5 %-0.45 % NaCl 1,000 ML IV PRN (01:45)
[2020-12-07] MEDS ORDERED: Lorazepam 2 MG/ML VIAL SLOW IVP PRN (01:45)
[2020-12-07] MEDS ORDERED: Propofol BOLUS 1,000 MG/100 ML VIAL IV PRN (01:45)
[2020-12-07] MEDS ORDERED: DISCONTINUE PREVIOUS NARCOTIC PAIN MEDICATIONS AND BENZODIAZEPINES FS SCH (01:45)
[2020-12-07] MEDS: Metoprolol Tartrate 5 MG/5 ML VIAL IVP PRN (01:47)
[2020-12-07 02:12] LABS: Hemoglobin 10.8 g/dL (12.0-16.0); Mean Corpuscular HGB CONC 34.2 g/dL (32.0-36.0); Mean Corpuscular Hemoglobin 29.3 pg (27.0-31.0); Mean Corpuscular Volume 85.7 fL (78.0-98.0); Mean Platelet Volume 7.9 fL (7.4-10.4); Platelet Count 376 thou/uL (130-400); RBC Distribution Width 11.9 % (11.5-14.5); Red Blood Cell (RBC) Count 3.68 mill/uL (4.20-5.40); White Blood Cell (WBC) Count 21.3 thou/uL (4.8-10.8)
[2020-12-07 02:35] LABS: Anion Gap 18 mmol/L (10-20); BUN (Urea Nitrogen) 28 mg/dL (9.8-20.1); Calc. Creatinine Clearance 17 mL/min (70-130); Calcium 8.7 mg/dL (7.8-10.44); Carbon Dioxide 19 mmol/L (23-31); Chloride 99 mmol/L (98-107); Potassium 3.1 mmol/L (3.5-5.1); Sodium 133 mmol/L (136-145)
[2020-12-07 02:37] LABS: Glucose 753 mg/dL (83-110)
[2020-12-07] MEDS: Sodium Chloride 0.9% 1,000 ML IV SCH ×2 (02:50→11:34)
[2020-12-07 02:52] LABS: Phosphorus 1.7 mg/dL (2.3-4.7)
[2020-12-07 02:53] LABS: Band 5 % (5-11); Hypochromia SLIGHT = 6-15 cells (100X) (0-5/hpf); Lymphocytes 19 % (21-51); MDiff Complete? YES; Monocytes 6 % (0-10); Neutrophil 70 % (42-75); Platelet Morphology Comment Appears Adequate
[2020-12-07] MEDS ORDERED: Sodium Phosphate 15 MMOL in Sodium Chloride 0.9% 250 ML 250 ML IVPB SCH (03:30)
[2020-12-07 04:11] LABS: Glucose 657 mg/dL (83-110)
[2020-12-07] MEDS: Potassium Chloride 10 MEQ in Premix Bag 1 BAG IVPB SCH ×8 (04:26→15:15)
[2020-12-07] MEDS: Piperacillin/Tazobactam 2.25 GM in Sodium Chloride 0.9% 100 ML IVPB SCH ×3 (06:23→21:26)
[2020-12-07 06:30] LABS: Anion Gap 13 mmol/L (10-20); BUN (Urea Nitrogen) 29 mg/dL (9.8-20.1); Calc. Creatinine Clearance 18 mL/min (70-130); Calcium 8.9 mg/dL (7.8-10.44); Carbon Dioxide 23 mmol/L (23-31); Chloride 102 mmol/L (98-107); Glucose 412 mg/dL (83-110); Potassium 3.2 mmol/L (3.5-5.1); Sodium 135 mmol/L (136-145)
[2020-12-07] MEDS: Heparin 5,000 UNITS/ML VIAL SC SCH ×3 (08:33→20:05)
[2020-12-07] MEDS ORDERED: FLU VACC QS2020-21(65YR UP)/PF 240 MCG/0.7 ML SYRINGE IM ONE (09:00)
[2020-12-07] MEDS ORDERED: Dextrose 5% in Water 1,000 ML IV PRN (09:45)
[2020-12-07 10:16] LABS: Anion Gap 13 mmol/L (10-20); BUN (Urea Nitrogen) 28 mg/dL (9.8-20.1); Calc. Creatinine Clearance 21 mL/min (70-130); Calcium 8.4 mg/dL (7.8-10.44); Carbon Dioxide 24 mmol/L (23-31); Chloride 107 mmol/L (98-107); Glucose 136 mg/dL (83-110); Potassium 3.4 mmol/L (3.5-5.1); Sodium 141 mmol/L (136-145)
[2020-12-07] MEDS ORDERED: DC Sedation Protocol FS ONE (15:24)
[2020-12-07] MEDS: HumaLOG 300 UNITS/3 ML VIAL SC PRN (15:25)
[2020-12-08] MEDS: Sodium Chloride 0.9% 1,000 ML IV SCH ×3 (00:03→17:47)
[2020-12-08] MEDS: Metoprolol Tartrate 5 MG/5 ML VIAL IVP PRN (00:03)
[2020-12-08] MEDS: HumaLOG 300 UNITS/3 ML VIAL SC PRN ×4 (00:04→11:34)
[2020-12-08] MEDS: Acetaminophen 325 MG TAB PO PRN (00:54)
[2020-12-08 04:02] LABS: Hemoglobin 8.5 g/dL (12.0-16.0); Mean Corpuscular HGB CONC 33.8 g/dL (32.0-36.0); Mean Corpuscular Hemoglobin 29.6 pg (27.0-31.0); Mean Corpuscular Volume 87.6 fL (78.0-98.0); Mean Platelet Volume 9.2 fL (7.4-10.4); Platelet Count 304 thou/uL (130-400); RBC Distribution Width 12.3 % (11.5-14.5); Red Blood Cell (RBC) Count 2.88 mill/uL (4.20-5.40); White Blood Cell (WBC) Count 23.4 thou/uL (4.8-10.8)
[2020-12-08 04:03] LABS: Band 16 % (5-11); Lymphocytes 8 % (21-51); MDiff Complete? YES; Monocytes 2 % (0-10); Neutrophil 74 % (42-75); Platelet Morphology Comment Appears Adequate
[2020-12-08 04:06] LABS: Anion Gap 14 mmol/L (10-20); BUN (Urea Nitrogen) 25 mg/dL (9.8-20.1); Calc. Creatinine Clearance 19 mL/min (70-130); Calcium 7.7 mg/dL (7.8-10.44); Carbon Dioxide 18 mmol/L (23-31); Chloride 112 mmol/L (98-107); Glucose 205 mg/dL (83-110); Magnesium 1.6 mg/dL (1.6-2.6); Potassium 3.9 mmol/L (3.5-5.1); Sodium 140 mmol/L (136-145)
[2020-12-08] MEDS: Piperacillin/Tazobactam 2.25 GM in Sodium Chloride 0.9% 100 ML IVPB SCH ×3 (05:09→22:45)
[2020-12-08] MEDS: Heparin 5,000 UNITS/ML VIAL SC SCH ×3 (08:10→22:42)
[2020-12-08] MEDS: cefTRIAXone\\ROCEPHIN 1 GM in Sodium Chloride 0.9% 100 ML IVPB SCH (09:23)
[2020-12-08 21:37] LABS: Actual Bicarbonate (HCO3a) 17.8 mEq/L (22-28); Base Excess (BEa) -6.9 mEq/L (-2.0 to +3.0); CO2 Tension 32.7 mmHg (35.0-45.0); O2 Tension (PaO2), arterial 132.9 mmHg (> 70.0); pH, Arterial 7.35 (7.35-7.45)
[2020-12-08 21:38] LABS: ALV-art Gradient 54.385 mmHg (0-20); Calcium, Ionized (arterial) 1.13 mmol/L (1.12-1.30); Carboxyhemoglobin (COHb) 0.3 gm% (0.0-3.0); Hemoglobin (Hb) 8.9 g/dL (12.0-16.0)
[2020-12-08 22:39] LABS: #Basophils 0.1 thou/uL (0.0-0.2); #Lymphocytes 2.2 thou/uL (1.20-3.40); #Monocytes 0.9 thou/uL (0.11-0.59); #Neutrophils 18.4 thou/uL (1.40-6.50); %Basophils 0.3 % (0.0-1.0); %Eosinophils 0.1 % (0.0-10.0); %Lymphocytes 10.1 % (21.0-51.0); %Monocytes 4.2 % (0.0-10.0); %Neutrophils 85.2 % (42.0-75.0); Hemoglobin 8.7 g/dL (12.0-16.0); Mean Corpuscular HGB CONC 32.9 g/dL (32.0-36.0); Mean Corpuscular Hemoglobin 29.4 pg (27.0-31.0); Mean Corpuscular Volume 89.4 fL (78.0-98.0); Mean Platelet Volume 8.3 fL (7.4-10.4); Platelet Count 317 thou/uL (130-400); RBC Distribution Width 12.5 % (11.5-14.5); Red Blood Cell (RBC) Count 2.96 mill/uL (4.20-5.40); White Blood Cell (WBC) Count 21.6 thou/uL (4.8-10.8)
[2020-12-08] MEDS: HumuLIN 70/30 (300 UNITS/3 ML VIAL) SC SCH (22:42)
[2020-12-08] MEDS ORDERED: Electrolyte Replacement Protocol 1 EACH FS SCH (22:45)
[2020-12-08 22:54] LABS: Lactic Acid 1.6 mmol/L (0.5-2.2)
[2020-12-08] MEDS: Metoprolol Tartrate 25 MG TAB PO SCH (22:56)
[2020-12-08] MEDS: Atorvastatin Calcium 40 MG TAB PO SCH (22:56)
[2020-12-08 23:00] LABS: ALT (SGPT) 10 U/L (8-55); AST (SGOT) 32 U/L (5-34); Albumin 2.8 g/dL (3.4-4.8); Alkaline Phosphatase 81 U/L (40-110); Anion Gap 14 mmol/L (10-20); BUN (Urea Nitrogen) 23 mg/dL (9.8-20.1); Bilirubin, Total 0.2 mg/dL (0.2-1.2); Calc. Creatinine Clearance 21 mL/min (70-130); Calcium 7.8 mg/dL (7.8-10.44); Carbon Dioxide 20 mmol/L (23-31); Chloride 114 mmol/L (98-107); Globulin 3.4 g/dL (2.4-3.5); Glucose 214 mg/dL (83-110); Potassium 4.1 mmol/L (3.5-5.1); Protein, Total 6.2 g/dL (5.8-8.1); Sodium 144 mmol/L (136-145)
[2020-12-09] MEDS ORDERED: Dextrose 5 %-0.45 % NaCl 1,000 ML IV PRN (00:48)
[2020-12-09] MEDS ORDERED: D5 1/2 NS w/20 mEq KCL 1,000 ML IV PRN (00:48)
[2020-12-09] MEDS ORDERED: Electrolyte Replacement Protocol 1 EACH IVPB PRN (00:48)
[2020-12-09] MEDS ORDERED: Sodium Chloride 0.9% 1,000 ML IV PRN ×4 (00:48)
[2020-12-09] MEDS ORDERED: NS 0.9% w/ 20 MEQ KCL 1,000 ML IV PRN ×2 (00:48)
[2020-12-09] MEDS ORDERED: HUMULIN R 100 UNITS in Sodium Chloride 0.9% 100 ML IVPB SCH (01:00)
[2020-12-09] MEDS ORDERED: Potassium Phosphate 15 MMOL in Sodium Chloride 0.9% 250 ML 250 ML IVPB SCH (01:30)
[2020-12-09 02:26] LABS: Anion Gap 13 mmol/L (10-20); BUN (Urea Nitrogen) 23 mg/dL (9.8-20.1); Calc. Creatinine Clearance 22 mL/min (70-130); Calcium 7.8 mg/dL (7.8-10.44); Carbon Dioxide 19 mmol/L (23-31); Chloride 117 mmol/L (98-107); Glucose 219 mg/dL (83-110); Potassium 3.9 mmol/L (3.5-5.1); Sodium 145 mmol/L (136-145)
[2020-12-09 04:08] LABS: #Lymphocytes 2.2 thou/uL (1.20-3.40); #Monocytes 0.5 thou/uL (0.11-0.59); #Neutrophils 18.5 thou/uL (1.40-6.50); %Basophils 0.1 % (0.0-1.0); %Eosinophils 0.1 % (0.0-10.0); %Lymphocytes 10.5 % (21.0-51.0); %Monocytes 2.2 % (0.0-10.0); %Neutrophils 87.1 % (42.0-75.0); Hemoglobin 8.4 g/dL (12.0-16.0); Mean Corpuscular HGB CONC 32.7 g/dL (32.0-36.0); Mean Corpuscular Hemoglobin 29.3 pg (27.0-31.0); Mean Corpuscular Volume 89.6 fL (78.0-98.0); Mean Platelet Volume 9.3 fL (7.4-10.4); Platelet Count 287 thou/uL (130-400); RBC Distribution Width 12.6 % (11.5-14.5); Red Blood Cell (RBC) Count 2.86 mill/uL (4.20-5.40); White Blood Cell (WBC) Count 21.2 thou/uL (4.8-10.8)
[2020-12-09] MEDS ORDERED: glipiZIDE 10 MG TAB PO SCH (07:30)
[2020-12-09] MEDS ORDERED: Glimepiride 4 MG TAB PO SCH (07:30)
[2020-12-09] MEDS ORDERED: Non-Formulary Item 1 EACH (Levemir Flexpen [Levemir Flexpen] 100 UNITS/ML Pen) SQ SCH (09:00)
[2020-12-09] MEDS ORDERED: Insulin Glargine 24 UNITS in Pre-Filled Syringe 1 EACH SC SCH (09:00)
[2020-12-09] MEDS: Sodium Chloride 0.9% 1,000 ML IV SCH ×2 (09:17→16:43)
[2020-12-09] MEDS: HumuLIN 70/30 (300 UNITS/3 ML VIAL) SC SCH (10:50)
[2020-12-09] MEDS: Aspirin 81 mg Enteric Coated Tablet PO SCH (10:55)
[2020-12-09] MEDS: Fish Oil 1,000 MG CAP PO SCH (10:55)
[2020-12-09] MEDS: Metoprolol Tartrate 25 MG TAB PO SCH ×2 (10:56→21:01)
[2020-12-09] MEDS: Multivit, Therapeutic 1 TAB PO SCH (10:56)
[2020-12-09] MEDS: Amlodipine 10 MG TAB PO SCH (10:56)
[2020-12-09] MEDS: Lisinopril 5 MG TAB PO SCH (10:56)
[2020-12-09] MEDS: Cholecalciferol 1,000 UNITS (25 MCG) TAB PO SCH (10:56)
[2020-12-09] MEDS: Heparin 5,000 UNITS/ML VIAL SC SCH ×3 (10:57→21:01)
[2020-12-09] MEDS: cefTRIAXone\\ROCEPHIN 1 GM in Sodium Chloride 0.9% 100 ML IVPB SCH (10:58)
[2020-12-09 11:46] LABS: Phosphorus 4.7 mg/dL (2.3-4.7)
[2020-12-09] MEDS: Piperacillin/Tazobactam 2.25 GM in Sodium Chloride 0.9% 100 ML IVPB SCH (15:53)
[2020-12-09] MEDS: Atorvastatin Calcium 40 MG TAB PO SCH (21:01)
[2020-12-09 22:39] LABS: SARS-CoV-2 PCR by NAA Not Detected (NotDetected)
[2020-12-10 04:28] LABS: ALT (SGPT) 10 U/L (8-55); AST (SGOT) 24 U/L (5-34); Albumin 2.5 g/dL (3.4-4.8); Alkaline Phosphatase 80 U/L (40-110); Anion Gap 24 mmol/L (10-20); BUN (Urea Nitrogen) 38 mg/dL (9.8-20.1); Bilirubin, Total Less than 0.2 mg/dL (0.2-1.2); Calc. Creatinine Clearance 18 mL/min (70-130); Calcium 7.7 mg/dL (7.8-10.44); Chloride 116 mmol/L (98-107); Globulin 3.2 g/dL (2.4-3.5); Glucose 375 mg/dL (83-110); Magnesium 1.6 mg/dL (1.6-2.6); Phosphorus 5.5 mg/dL (2.3-4.7); Potassium 4.6 mmol/L (3.5-5.1); Protein, Total 5.7 g/dL (5.8-8.1); Sodium 144 mmol/L (136-145)
[2020-12-10 04:34] LABS: Carbon Dioxide 9 mmol/L (23-31)
[2020-12-10 04:39] LABS: Hemoglobin 8.6 g/dL (12.0-16.0); Mean Corpuscular HGB CONC 32.4 g/dL (32.0-36.0); Mean Corpuscular Hemoglobin 30.2 pg (27.0-31.0); Mean Corpuscular Volume 93.2 fL (78.0-98.0); Mean Platelet Volume 8.9 fL (7.4-10.4); Platelet Count 237 thou/uL (130-400); RBC Distribution Width 12.7 % (11.5-14.5); Red Blood Cell (RBC) Count 2.86 mill/uL (4.20-5.40); White Blood Cell (WBC) Count 23.2 thou/uL (4.8-10.8)
[2020-12-10 04:59] LABS: Band 3 % (5-11); Burr Cells SLIGHT = 2-5 cells (100X) (0-1/hpf); Lymphocytes 11 % (21-51); MDiff Complete? YES; Monocytes 4 % (0-10); Myelocyte 1 % (0-0); Neutrophil 81 % (42-75)
[2020-12-10 05:39] LABS: Anion Gap 24 mmol/L (10-20); BUN (Urea Nitrogen) 42 mg/dL (9.8-20.1); Calc. Creatinine Clearance 18 mL/min (70-130); Calcium 8.2 mg/dL (7.8-10.44); Carbon Dioxide 10 mmol/L (23-31); Chloride 117 mmol/L (98-107); Glucose 423 mg/dL (83-110); Potassium 4.5 mmol/L (3.5-5.1); Sodium 146 mmol/L (136-145)
[2020-12-10] MEDS: HumaLOG 300 UNITS/3 ML VIAL SC PRN ×2 (06:22→08:33)
[2020-12-10] MEDS ORDERED: Magnesium 2 GM/50 ML 2 GM in Premix Bag 1 BAG IVPB SCH (06:45)
[2020-12-10 08:43] VITALS: BMI 21.8
[2020-12-10] MEDS ORDERED: Sodium Bicarb 50 MEQ/50 ML Abboject 8.4% SYRINGE IVP SCH (09:00)
[2020-12-10] MEDS: Sodium Chloride 0.9% 1,000 ML IV SCH ×2 (09:26→15:52)
[2020-12-10] MEDS: Heparin 5,000 UNITS/ML VIAL SC SCH ×3 (09:31→20:33)
[2020-12-10] MEDS: Insulin Glargine 5 UNITS in Pre-Filled Syringe 1 EACH SC SCH ×2 (09:32→09:45)
[2020-12-10] MEDS: Lisinopril 5 MG TAB PO SCH (09:32)
[2020-12-10] MEDS: Amlodipine 10 MG TAB PO SCH (09:33)
[2020-12-10] MEDS: Metoprolol Tartrate 25 MG TAB PO SCH ×2 (09:34→20:34)
[2020-12-10] MEDS: Aspirin 81 mg Enteric Coated Tablet PO SCH (09:35)
[2020-12-10] MEDS: Cholecalciferol 1,000 UNITS (25 MCG) TAB PO SCH (09:36)
[2020-12-10] MEDS: Multivit, Therapeutic 1 TAB PO SCH (09:36)
[2020-12-10] MEDS: cefTRIAXone\\ROCEPHIN 1 GM in Sodium Chloride 0.9% 100 ML IVPB SCH (10:56)
[2020-12-10] MEDS: Fish Oil 1,000 MG CAP PO SCH (10:57)
[2020-12-10] MEDS: HumuLIN 70/30 (300 UNITS/3 ML VIAL) SC SCH ×2 (10:58→20:42)
[2020-12-10] MEDS: Sodium Bicarbonate 100 MEQ in Sodium Chloride 0.45% 1,000 ML IV SCH (11:24)
[2020-12-10] MEDS: Insulin Regular 300 UNITS/3 ML VIAL SC PRN (16:24)
[2020-12-10] MEDS: Atorvastatin Calcium 40 MG TAB PO SCH (20:34)
[2020-12-11 05:14] LABS: ALT (SGPT) 10 U/L (8-55); AST (SGOT) 22 U/L (5-34); Albumin 2.4 g/dL (3.4-4.8); Alkaline Phosphatase 84 U/L (40-110); Anion Gap 20 mmol/L (10-20); BUN (Urea Nitrogen) 40 mg/dL (9.8-20.1); Bilirubin, Total Less than 0.2 mg/dL (0.2-1.2); Calc. Creatinine Clearance 21 mL/min (70-130); Calcium 7.9 mg/dL (7.8-10.44); Carbon Dioxide 20 mmol/L (23-31); Chloride 116 mmol/L (98-107); Globulin 3.4 g/dL (2.4-3.5); Glucose 304 mg/dL (83-110); Phosphorus 3.8 mg/dL (2.3-4.7); Potassium 3.7 mmol/L (3.5-5.1); Protein, Total 5.8 g/dL (5.8-8.1); Sodium 152 mmol/L (136-145)
[2020-12-11] MEDS: Acetaminophen 325 MG TAB PO PRN ×2 (05:15→13:15)
[2020-12-11] MEDS: Insulin Regular 300 UNITS/3 ML VIAL SC PRN ×3 (05:17→13:47)
[2020-12-11 05:28] LABS: Band 12 % (5-11); Eosinophils 2 % (0-10); Hemoglobin 8.4 g/dL (12.0-16.0); Lymphocytes 4 % (21-51); MDiff Complete? YES; Mean Corpuscular Hemoglobin 29.6 pg (27.0-31.0); Mean Corpuscular Volume 89.7 fL (78.0-98.0); Mean Platelet Volume 9.2 fL (7.4-10.4); Monocytes 6 % (0-10); Neutrophil 76 % (42-75); Platelet Count 306 thou/uL (130-400); RBC Distribution Width 12.8 % (11.5-14.5); Red Blood Cell (RBC) Count 2.85 mill/uL (4.20-5.40); White Blood Cell (WBC) Count 23.5 thou/uL (4.8-10.8)
[2020-12-11] MEDS: Fish Oil 1,000 MG CAP PO SCH (09:49)
[2020-12-11] MEDS: Cholecalciferol 1,000 UNITS (25 MCG) TAB PO SCH (09:49)
[2020-12-11] MEDS: Aspirin 81 mg Enteric Coated Tablet PO SCH (09:49)
[2020-12-11] MEDS: Multivit, Therapeutic 1 TAB PO SCH (09:50)
[2020-12-11] MEDS: Amlodipine 10 MG TAB PO SCH (09:50)
[2020-12-11] MEDS: Lisinopril 5 MG TAB PO SCH (09:50)
[2020-12-11] MEDS: HumuLIN 70/30 (300 UNITS/3 ML VIAL) SC SCH ×2 (09:51→15:57)
[2020-12-11] MEDS: Metoprolol Tartrate 25 MG TAB PO SCH ×2 (09:51→21:18)
[2020-12-11] MEDS: Heparin 5,000 UNITS/ML VIAL SC SCH ×3 (09:51→21:18)
[2020-12-11] MEDS: cefTRIAXone\\ROCEPHIN 1 GM in Sodium Chloride 0.9% 100 ML IVPB SCH (09:54)
[2020-12-11] MEDS ORDERED: Dextrose 5% in Water 1,000 ML IV SCH (16:00)
[2020-12-11] MEDS: Atorvastatin Calcium 40 MG TAB PO SCH (21:18)
[2020-12-11] MEDS: Sodium Bicarbonate 100 MEQ in Sodium Chloride 0.45% 1,000 ML IV SCH (21:19)
[2020-12-12 08:36] LABS: #Eosinphils 0.1 thou/uL (0.0-0.7); #Lymphocytes 2.2 thou/uL (1.20-3.40); #Monocytes 1.1 thou/uL (0.11-0.59); %Basophils 0.2 % (0.0-1.0); %Eosinophils 0.7 % (0.0-10.0); %Lymphocytes 12.7 % (21.0-51.0); %Monocytes 6.1 % (0.0-10.0); %Neutrophils 80.4 % (42.0-75.0); Hemoglobin 7.9 g/dL (12.0-16.0); Mean Corpuscular HGB CONC 32.8 g/dL (32.0-36.0); Mean Corpuscular Volume 91.3 fL (78.0-98.0); Mean Platelet Volume 8.8 fL (7.4-10.4); Platelet Count 294 thou/uL (130-400); RBC Distribution Width 12.7 % (11.5-14.5); Red Blood Cell (RBC) Count 2.65 mill/uL (4.20-5.40); White Blood Cell (WBC) Count 17.4 thou/uL (4.8-10.8)
[2020-12-12 08:54] LABS: Anion Gap 16 mmol/L (10-20); BUN (Urea Nitrogen) 31 mg/dL (9.8-20.1); Calc. Creatinine Clearance 24 mL/min (70-130); Calcium 7.6 mg/dL (7.8-10.44); Carbon Dioxide 26 mmol/L (23-31); Chloride 113 mmol/L (98-107); Glucose 241 mg/dL (83-110); Sodium 152 mmol/L (136-145)
[2020-12-12] MEDS: HumuLIN 70/30 (300 UNITS/3 ML VIAL) SC SCH ×3 (09:51→17:53)
[2020-12-12] MEDS: Lisinopril 5 MG TAB PO SCH (09:52)
[2020-12-12] MEDS: Amlodipine 10 MG TAB PO SCH (09:52)
[2020-12-12] MEDS: Cholecalciferol 1,000 UNITS (25 MCG) TAB PO SCH (09:52)
[2020-12-12] MEDS: Aspirin 81 mg Enteric Coated Tablet PO SCH (09:52)
[2020-12-12] MEDS: Metoprolol Tartrate 25 MG TAB PO SCH ×3 (09:53→21:40)
[2020-12-12] MEDS: Multivit, Therapeutic 1 TAB PO SCH (09:53)
[2020-12-12] MEDS: Heparin 5,000 UNITS/ML VIAL SC SCH ×3 (09:53→21:29)
[2020-12-12] MEDS: Fish Oil 1,000 MG CAP PO SCH (09:54)
[2020-12-12] MEDS ORDERED: Potassium Chloride 20 MEQ TAB PO SCH (11:15)
[2020-12-12] MEDS: Insulin Regular 300 UNITS/3 ML VIAL SC PRN (11:40)
[2020-12-12] MEDS ORDERED: Potassium Chloride 20 MEQ/100 ML PREMIX BAG IVPB SCH (12:15)
[2020-12-12] MEDS: Dextrose 5% in Water 1,000 ML IV SCH (12:35)
[2020-12-12] MEDS ORDERED: Lidocaine 2% Viscous Solution 20 ML, Aluminum & Magnesium Hydroxide 30 ML, Donnatal Eli... SSW SCH (17:00)
[2020-12-12 17:45] LABS: Troponin I 1.526 ng/mL (< 0.028)
[2020-12-12] MEDS: Nitroglycerin 2% Ointment 1 INCH/1 GM Packet TOP SCH (18:14)
[2020-12-12] MEDS ORDERED: Aspirin Chewable 81 MG TAB PO SCH (18:15)
[2020-12-12] MEDS: Dextrose 50% Abboject 50 ML SYRINGE IVP PRN (21:00)
[2020-12-12 21:27] LABS: Troponin I 1.582 ng/mL (< 0.028)
[2020-12-12] MEDS: Atorvastatin Calcium 40 MG TAB PO SCH (21:29)
[2020-12-12 23:41] LABS: Troponin I 1.694 ng/mL (< 0.028)
[2020-12-13] MEDS: Morphine 2 MG/ML VIAL SLOW IVP PRN ×3 (00:08→14:26)
[2020-12-13] MEDS: Dextrose 5% in Water 1,000 ML IV SCH ×3 (00:12→17:30)
[2020-12-13] MEDS: Nitroglycerin 2% Ointment 1 INCH/1 GM Packet TOP SCH ×3 (00:13→17:47)
[2020-12-13] MEDS ORDERED: Enoxaparin Sodium 60 MG/0.6 ML SYRINGE SC SCH (00:15)
[2020-12-13 04:22] LABS: Anion Gap 16 mmol/L (10-20); BUN (Urea Nitrogen) 31 mg/dL (9.8-20.1); Calc. Creatinine Clearance 24 mL/min (70-130); Calcium 7.7 mg/dL (7.8-10.44); Carbon Dioxide 23 mmol/L (23-31); Chloride 110 mmol/L (98-107); Glucose 159 mg/dL (83-110); Potassium 3.1 mmol/L (3.5-5.1); Sodium 146 mmol/L (136-145)
[2020-12-13] MEDS ORDERED: Potassium Chloride 40 MEQ in Sodium Chloride 0.9% 250 ML 250 ML IVPB SCH (04:30)
[2020-12-13] MEDS: HumuLIN 70/30 (300 UNITS/3 ML VIAL) SC SCH ×3 (05:29→16:07)
[2020-12-13 06:59] LABS: Band 12 % (5-11); Eosinophils 2 % (0-10); Lymphocytes 30 % (21-51); MDiff Complete? YES; Mean Corpuscular HGB CONC 31.9 g/dL (32.0-36.0); Mean Corpuscular Volume 90.8 fL (78.0-98.0); Mean Platelet Volume 8.9 fL (7.4-10.4); Monocytes 1 % (0-10); Neutrophil 55 % (42-75); Nucleated RBC 2 % (0); Platelet Count 292 thou/uL (130-400); RBC Distribution Width 13.1 % (11.5-14.5); Red Blood Cell (RBC) Count 2.77 mill/uL (4.20-5.40); White Blood Cell (WBC) Count 22.4 thou/uL (4.8-10.8)
[2020-12-13] MEDS: Multivit, Therapeutic 1 TAB PO SCH (08:07)
[2020-12-13] MEDS: Cholecalciferol 1,000 UNITS (25 MCG) TAB PO SCH (08:07)
[2020-12-13] MEDS: Lisinopril 5 MG TAB PO SCH (08:07)
[2020-12-13] MEDS: Aspirin 81 mg Enteric Coated Tablet PO SCH (08:08)
[2020-12-13] MEDS: Metoprolol Tartrate 25 MG TAB PO SCH ×2 (08:08→21:52)
[2020-12-13] MEDS: Amlodipine 10 MG TAB PO SCH (08:08)
[2020-12-13] MEDS: Fish Oil 1,000 MG CAP PO SCH (08:08)
[2020-12-13] MEDS ORDERED: Magnesium 2 GM/50 ML 2 GM in Premix Bag 1 BAG IVPB SCH (11:30)
[2020-12-13] MEDS ORDERED: Nitroglycerin 0.4 MG TAB (25 Tab Bottle) SL PRN (11:57)
[2020-12-13] MEDS: Acetaminophen 325 MG TAB PO PRN (13:04)
[2020-12-13] MEDS: Enoxaparin Sodium 60 MG/0.6 ML SYRINGE SC SCH (21:51)
[2020-12-13] MEDS: Atorvastatin Calcium 40 MG TAB PO SCH (21:52)
[2020-12-13] MEDS: Morphine 4 MG/ML VIAL SLOW IVP PRN (23:24)
[2020-12-14] MEDS: Nitroglycerin 2% Ointment 1 INCH/1 GM Packet TOP SCH ×3 (02:52→17:10)
[2020-12-14] MEDS: Morphine 4 MG/ML VIAL SLOW IVP PRN (02:54)
[2020-12-14] MEDS: Dextrose 5% in Water 1,000 ML IV SCH (02:54)
[2020-12-14 04:20] LABS: Anion Gap 13 mmol/L (10-20); BUN (Urea Nitrogen) 29 mg/dL (9.8-20.1); Calc. Creatinine Clearance 23 mL/min (70-130); Calcium 7.5 mg/dL (7.8-10.44); Carbon Dioxide 23 mmol/L (23-31); Chloride 105 mmol/L (98-107); Glucose 97 mg/dL (83-110); Potassium 3.3 mmol/L (3.5-5.1); Sodium 138 mmol/L (136-145)
[2020-12-14 04:53] LABS: Band 9 % (5-11); Hemoglobin 7.4 g/dL (12.0-16.0); Lymphocytes 22 % (21-51); MDiff Complete? YES; Mean Corpuscular HGB CONC 31.5 g/dL (32.0-36.0); Mean Platelet Volume 8.7 fL (7.4-10.4); Monocytes 8 % (0-10); Neutrophil 60 % (42-75); Nucleated RBC 2 % (0); Platelet Count 257 thou/uL (130-400); Reactive Lymphocytes 1 % (0-10); Red Blood Cell (RBC) Count 2.53 mill/uL (4.20-5.40); White Blood Cell (WBC) Count 20.7 thou/uL (4.8-10.8)
[2020-12-14] MEDS ORDERED: Potassium Chloride 20 MEQ TAB PO SCH (06:30)
[2020-12-14] MEDS: Cholecalciferol 1,000 UNITS (25 MCG) TAB PO SCH (08:35)
[2020-12-14] MEDS: Aspirin 81 mg Enteric Coated Tablet PO SCH (08:35)
[2020-12-14] MEDS: Fish Oil 1,000 MG CAP PO SCH (08:35)
[2020-12-14] MEDS: Amlodipine 10 MG TAB PO SCH (08:36)
[2020-12-14] MEDS: Metoprolol Tartrate 25 MG TAB PO SCH ×2 (08:36→20:50)
[2020-12-14] MEDS: Lisinopril 5 MG TAB PO SCH (08:36)
[2020-12-14] MEDS: Multivit, Therapeutic 1 TAB PO SCH (08:36)
[2020-12-14] MEDS: HumuLIN 70/30 (300 UNITS/3 ML VIAL) SC SCH ×3 (08:42→17:11)
[2020-12-14] MEDS ORDERED: Furosemide 40 MG/4 ML VIAL IVP SCH (09:30)
[2020-12-14] MEDS: Dextrose 50% Abboject 50 ML SYRINGE IVP PRN (17:10)
[2020-12-14] MEDS ORDERED: Dextrose 5% in Water 1,000 ML IV SCH (17:15)
[2020-12-14] MEDS: Atorvastatin Calcium 40 MG TAB PO SCH (20:50)
[2020-12-14] MEDS: Enoxaparin Sodium 60 MG/0.6 ML SYRINGE SC SCH (20:50)
[2020-12-15] MEDS: Nitroglycerin 2% Ointment 1 INCH/1 GM Packet TOP SCH ×3 (01:48→17:29)
[2020-12-15 04:28] LABS: Anion Gap 16 mmol/L (10-20); BUN (Urea Nitrogen) 30 mg/dL (9.8-20.1); Calc. Creatinine Clearance 23 mL/min (70-130); Calcium 7.4 mg/dL (7.8-10.44); Carbon Dioxide 22 mmol/L (23-31); Chloride 103 mmol/L (98-107); Glucose 157 mg/dL (83-110); Potassium 3.6 mmol/L (3.5-5.1); Sodium 137 mmol/L (136-145)
[2020-12-15 05:58] LABS: Band 13 % (5-11); Eosinophils 2 % (0-10); Hemoglobin 7.3 g/dL (12.0-16.0); Lymphocytes 12 % (21-51); MDiff Complete? YES; Mean Corpuscular Volume 93.6 fL (78.0-98.0); Monocytes 7 % (0-10); Neutrophil 66 % (42-75); Nucleated RBC 3 % (0); Platelet Count 275 thou/uL (130-400); RBC Distribution Width 12.8 % (11.5-14.5); Red Blood Cell (RBC) Count 2.51 mill/uL (4.20-5.40)
[2020-12-15] MEDS: Acetaminophen 325 MG TAB PO PRN ×3 (06:01→21:47)
[2020-12-15] MEDS: Furosemide 40 MG/4 ML VIAL SLOW IVP SCH (09:03)
[2020-12-15] MEDS: Amlodipine 10 MG TAB PO SCH (09:37)
[2020-12-15] MEDS: Cholecalciferol 1,000 UNITS (25 MCG) TAB PO SCH (09:37)
[2020-12-15] MEDS: Aspirin 81 mg Enteric Coated Tablet PO SCH (09:37)
[2020-12-15] MEDS: Lisinopril 5 MG TAB PO SCH (09:37)
[2020-12-15] MEDS: Fish Oil 1,000 MG CAP PO SCH (09:37)
[2020-12-15] MEDS: Metoprolol Tartrate 25 MG TAB PO SCH ×2 (09:38→20:13)
[2020-12-15] MEDS: Multivit, Therapeutic 1 TAB PO SCH (09:38)
[2020-12-15] MEDS: Piperacillin/Tazobactam 2.25 GM in Sodium Chloride 0.9% 100 ML IVPB SCH ×2 (09:41→17:29)
[2020-12-15] MEDS: Insulin Regular 300 UNITS/3 ML VIAL SC PRN ×2 (17:28→20:30)
[2020-12-15] MEDS: Enoxaparin Sodium 60 MG/0.6 ML SYRINGE SC SCH (20:12)
[2020-12-15] MEDS: Atorvastatin Calcium 40 MG TAB PO SCH (20:12)
[2020-12-15] MEDS: Morphine 4 MG/ML VIAL SLOW IVP PRN (23:43)
[2020-12-16] MEDS: Nitroglycerin 2% Ointment 1 INCH/1 GM Packet TOP SCH ×3 (01:59→16:53)
[2020-12-16] MEDS: Piperacillin/Tazobactam 2.25 GM in Sodium Chloride 0.9% 100 ML IVPB SCH ×3 (02:01→16:53)
[2020-12-16 05:07] LABS: #Eosinphils 0.3 thou/uL (0.0-0.7); #Lymphocytes 2.9 thou/uL (1.20-3.40); #Monocytes 1.6 thou/uL (0.11-0.59); #Neutrophils 9.6 thou/uL (1.40-6.50); %Basophils 0.3 % (0.0-1.0); %Eosinophils 2.4 % (0.0-10.0); %Lymphocytes 19.8 % (21.0-51.0); %Neutrophils 66.4 % (42.0-75.0); Hemoglobin 7.4 g/dL (12.0-16.0); MDiff Complete? YES; Mean Corpuscular HGB CONC 31.9 g/dL (32.0-36.0); Mean Corpuscular Hemoglobin 29.6 pg (27.0-31.0); Mean Corpuscular Volume 92.8 fL (78.0-98.0); Mean Platelet Volume 8.9 fL (7.4-10.4); Platelet Count 276 thou/uL (130-400); Polychromasia SLIGHT = 2-3 cells (100X) (0-2/hpf); RBC Distribution Width 13.1 % (11.5-14.5); Red Blood Cell (RBC) Count 2.49 mill/uL (4.20-5.40); White Blood Cell (WBC) Count 14.4 thou/uL (4.8-10.8)
[2020-12-16] MEDS: Metoprolol Tartrate 25 MG TAB PO SCH ×2 (08:14→20:21)
[2020-12-16] MEDS: Lisinopril 5 MG TAB PO SCH (08:14)
[2020-12-16] MEDS: Amlodipine 10 MG TAB PO SCH (08:14)
[2020-12-16] MEDS: Aspirin 81 mg Enteric Coated Tablet PO SCH (08:14)
[2020-12-16] MEDS: Furosemide 40 MG/4 ML VIAL SLOW IVP SCH (08:15)
[2020-12-16] MEDS: Cholecalciferol 1,000 UNITS (25 MCG) TAB PO SCH (08:15)
[2020-12-16] MEDS: Multivit, Therapeutic 1 TAB PO SCH (08:15)
[2020-12-16] MEDS: Fish Oil 1,000 MG CAP PO SCH (08:15)
[2020-12-16] MEDS: HumuLIN 70/30 (300 UNITS/3 ML VIAL) SC SCH ×2 (11:43→16:53)
[2020-12-16] MEDS: Dextrose 50% Abboject 50 ML SYRINGE IVP PRN (16:53)
[2020-12-16] MEDS ORDERED: Furosemide 40 MG/4 ML VIAL SLOW IVP SCH (18:39)
[2020-12-16] MEDS: Atorvastatin Calcium 40 MG TAB PO SCH (20:20)
[2020-12-16] MEDS: Enoxaparin Sodium 60 MG/0.6 ML SYRINGE SC SCH (20:21)
[2020-12-17] MEDS: Nitroglycerin 2% Ointment 1 INCH/1 GM Packet TOP SCH ×3 (02:52→18:21)
[2020-12-17] MEDS: Piperacillin/Tazobactam 2.25 GM in Sodium Chloride 0.9% 100 ML IVPB SCH ×3 (02:52→18:26)
[2020-12-17 05:15] LABS: #Eosinphils 0.2 thou/uL (0.0-0.7); #Lymphocytes 1.9 thou/uL (1.20-3.40); #Monocytes 1.5 thou/uL (0.11-0.59); #Neutrophils 12.9 thou/uL (1.40-6.50); %Basophils 0.2 % (0.0-1.0); %Eosinophils 1.2 % (0.0-10.0); %Lymphocytes 11.7 % (21.0-51.0); %Monocytes 8.8 % (0.0-10.0); %Neutrophils 78.2 % (42.0-75.0); Hemoglobin 7.9 g/dL (12.0-16.0); Mean Platelet Volume 8.3 fL (7.4-10.4); Platelet Count 306 thou/uL (130-400); RBC Distribution Width 12.8 % (11.5-14.5); Red Blood Cell (RBC) Count 2.62 mill/uL (4.20-5.40); White Blood Cell (WBC) Count 16.5 thou/uL (4.8-10.8)
[2020-12-17 05:37] LABS: Anion Gap 13 mmol/L (10-20); BUN (Urea Nitrogen) 22 mg/dL (9.8-20.1); Calc. Creatinine Clearance 23 mL/min (70-130); Calcium 7.3 mg/dL (7.8-10.44); Carbon Dioxide 28 mmol/L (23-31); Chloride 103 mmol/L (98-107); Glucose 276 mg/dL (83-110); Potassium 3.4 mmol/L (3.5-5.1); Sodium 141 mmol/L (136-145)
[2020-12-17] MEDS ORDERED: Potassium Chloride 20 MEQ TAB PO SCH (06:30)
[2020-12-17] MEDS: HumuLIN 70/30 (300 UNITS/3 ML VIAL) SC SCH ×3 (09:05→18:21)
[2020-12-17] MEDS: Fish Oil 1,000 MG CAP PO SCH (11:03)
[2020-12-17] MEDS: Aspirin 81 mg Enteric Coated Tablet PO SCH (11:03)
[2020-12-17] MEDS: Furosemide 20 MG TAB PO SCH (11:04)
[2020-12-17] MEDS: Cholecalciferol 1,000 UNITS (25 MCG) TAB PO SCH (11:04)
[2020-12-17] MEDS: Lisinopril 5 MG TAB PO SCH (11:04)
[2020-12-17] MEDS: Multivit, Therapeutic 1 TAB PO SCH (11:04)
[2020-12-17] MEDS: Amlodipine 10 MG TAB PO SCH (11:04)
[2020-12-17] MEDS: Metoprolol Tartrate 25 MG TAB PO SCH ×2 (11:06→23:12)
[2020-12-17] MEDS ORDERED: Ondansetron PF 4 MG/2 ML Vial IVP PRN (14:25)
[2020-12-17] MEDS: Insulin Regular 300 UNITS/3 ML VIAL SC PRN (14:49)
[2020-12-17] MEDS: Loperamide HCl 2 MG CAP PO PRN (14:58)
[2020-12-17] MEDS: Atorvastatin Calcium 40 MG TAB PO SCH (23:11)
[2020-12-17] MEDS: Enoxaparin Sodium 60 MG/0.6 ML SYRINGE SC SCH (23:13)
[2020-12-17] MEDS: Morphine 2 MG/ML VIAL SLOW IVP PRN (23:16)
[2020-12-18] MEDS: Piperacillin/Tazobactam 2.25 GM in Sodium Chloride 0.9% 100 ML IVPB SCH ×3 (02:29→17:33)
[2020-12-18] MEDS: Nitroglycerin 2% Ointment 1 INCH/1 GM Packet TOP SCH ×2 (02:36→11:52)
[2020-12-18 05:09] LABS: #Eosinphils 0.3 thou/uL (0.0-0.7); #Lymphocytes 3.1 thou/uL (1.20-3.40); #Monocytes 1.9 thou/uL (0.11-0.59); %Basophils 0.2 % (0.0-1.0); %Eosinophils 1.9 % (0.0-10.0); %Lymphocytes 19.1 % (21.0-51.0); %Monocytes 11.4 % (0.0-10.0); %Neutrophils 67.4 % (42.0-75.0); Hemoglobin 7.4 g/dL (12.0-16.0); Mean Corpuscular HGB CONC 32.2 g/dL (32.0-36.0); Mean Corpuscular Hemoglobin 29.7 pg (27.0-31.0); Mean Corpuscular Volume 92.2 fL (78.0-98.0); Mean Platelet Volume 7.9 fL (7.4-10.4); Platelet Count 289 thou/uL (130-400); RBC Distribution Width 13.5 % (11.5-14.5); Red Blood Cell (RBC) Count 2.51 mill/uL (4.20-5.40); White Blood Cell (WBC) Count 16.3 thou/uL (4.8-10.8)
[2020-12-18] MEDS: HumuLIN 70/30 (300 UNITS/3 ML VIAL) SC SCH ×3 (09:22→17:33)
[2020-12-18] MEDS: Fish Oil 1,000 MG CAP PO SCH (09:24)
[2020-12-18] MEDS: Lisinopril 5 MG TAB PO SCH (09:24)
[2020-12-18] MEDS: Furosemide 20 MG TAB PO SCH (09:25)
[2020-12-18] MEDS: Cholecalciferol 1,000 UNITS (25 MCG) TAB PO SCH (09:25)
[2020-12-18] MEDS: Multivit, Therapeutic 1 TAB PO SCH (09:25)
[2020-12-18] MEDS: Metoprolol Tartrate 25 MG TAB PO SCH ×2 (09:25→21:11)
[2020-12-18] MEDS: Aspirin 81 mg Enteric Coated Tablet PO SCH (09:25)
[2020-12-18] MEDS: Amlodipine 10 MG TAB PO SCH (11:12)
[2020-12-18] MEDS: Morphine 2 MG/ML VIAL SLOW IVP PRN (11:30)
[2020-12-18] MEDS ORDERED: HYDROmorphone 0.5 MG/0.5 ML SYRINGE SLOW IVP PRN (13:41)
[2020-12-18] MEDS: Dextrose 50% Abboject 50 ML SYRINGE IVP PRN ×2 (20:14→22:42)
[2020-12-18] MEDS: Enoxaparin Sodium 60 MG/0.6 ML SYRINGE SC SCH (21:10)
[2020-12-18] MEDS: Atorvastatin Calcium 40 MG TAB PO SCH (21:11)
[2020-12-18] MEDS: Dextrose 50% Abboject 50 ML SYRINGE ONE ×3 (22:40→23:47)
[2020-12-19] MEDS: HYDROcodone/Acetaminophen 5/325 mg Tablet PO PRN (00:43)
[2020-12-19] MEDS: Piperacillin/Tazobactam 2.25 GM in Sodium Chloride 0.9% 100 ML IVPB SCH ×3 (00:44→17:57)
[2020-12-19] MEDS: Acetaminophen 325 MG TAB PO PRN ×5 (04:11→23:19)
[2020-12-19 04:56] LABS: #Eosinphils 0.3 thou/uL (0.0-0.7); #Lymphocytes 2.7 thou/uL (1.20-3.40); #Monocytes 1.9 thou/uL (0.11-0.59); #Neutrophils 11.8 thou/uL (1.40-6.50); %Basophils 0.2 % (0.0-1.0); %Eosinophils 1.6 % (0.0-10.0); %Lymphocytes 16.5 % (21.0-51.0); %Monocytes 11.1 % (0.0-10.0); %Neutrophils 70.6 % (42.0-75.0); Hemoglobin 7.4 g/dL (12.0-16.0); Mean Corpuscular HGB CONC 31.6 g/dL (32.0-36.0); Mean Corpuscular Hemoglobin 29.7 pg (27.0-31.0); Mean Corpuscular Volume 94.1 fL (78.0-98.0); Platelet Count 283 thou/uL (130-400); Red Blood Cell (RBC) Count 2.48 mill/uL (4.20-5.40); White Blood Cell (WBC) Count 16.7 thou/uL (4.8-10.8)
[2020-12-19 08:50] LABS: Lactic Acid 1.4 mmol/L (0.5-2.2)
[2020-12-19] MEDS: Furosemide 20 MG TAB PO SCH (08:54)
[2020-12-19] MEDS: Multivit, Therapeutic 1 TAB PO SCH (08:54)
[2020-12-19] MEDS: Metoprolol Tartrate 25 MG TAB PO SCH ×2 (08:54→21:23)
[2020-12-19] MEDS: Fish Oil 1,000 MG CAP PO SCH (08:54)
[2020-12-19] MEDS: Lisinopril 5 MG TAB PO SCH (08:55)
[2020-12-19] MEDS: Aspirin 81 mg Enteric Coated Tablet PO SCH (08:55)
[2020-12-19] MEDS: Cholecalciferol 1,000 UNITS (25 MCG) TAB PO SCH (08:55)
[2020-12-19 08:59] LABS: Anion Gap 15 mmol/L (10-20); BUN (Urea Nitrogen) 19 mg/dL (9.8-20.1); Calc. Creatinine Clearance 20 mL/min (70-130); Calcium 7.7 mg/dL (7.8-10.44); Carbon Dioxide 27 mmol/L (23-31); Chloride 103 mmol/L (98-107); Glucose 202 mg/dL (83-110); Magnesium 1.4 mg/dL (1.6-2.6); Potassium 3.8 mmol/L (3.5-5.1); Sodium 141 mmol/L (136-145)
[2020-12-19] MEDS: HumuLIN 70/30 (300 UNITS/3 ML VIAL) SC SCH ×2 (09:44→11:52)
[2020-12-19] MEDS ORDERED: Magnesium Sulfate 4 GM in Sodium Chloride 0.9% 250 ML 250 ML IVPB SCH (09:45)
[2020-12-19] MEDS ORDERED: Magnesium 2 GM/50 ML 2 GM in Premix Bag 1 BAG IVPB SCH (12:00)
[2020-12-19] MEDS ORDERED: NPH, Human Insulin Isophane 300 UNIT/3 ML VIAL SC SCH (12:15)
[2020-12-19] MEDS: Loperamide HCl 2 MG CAP PO PRN (13:34)
[2020-12-19] MEDS: Insulin Regular 300 UNITS/3 ML VIAL SC PRN ×3 (13:34→21:45)
[2020-12-19] MEDS ORDERED: HumaLOG 300 UNITS/3 ML VIAL SC PRN (21:21)
[2020-12-19] MEDS: Enoxaparin Sodium 60 MG/0.6 ML SYRINGE SC SCH (21:22)
[2020-12-19] MEDS: Atorvastatin Calcium 40 MG TAB PO SCH (21:23)
[2020-12-19] MEDS: NPH, Human Insulin Isophane 300 UNIT/3 ML VIAL SC SCH (21:25)
[2020-12-20] MEDS: Piperacillin/Tazobactam 2.25 GM in Sodium Chloride 0.9% 100 ML IVPB SCH (02:34)
[2020-12-20 05:07] LABS: #Basophils 0.1 thou/uL (0.0-0.2); #Eosinphils 0.4 thou/uL (0.0-0.7); #Lymphocytes 3.3 thou/uL (1.20-3.40); #Monocytes 1.6 thou/uL (0.11-0.59); #Neutrophils 11.7 thou/uL (1.40-6.50); %Basophils 0.5 % (0.0-1.0); %Eosinophils 2.4 % (0.0-10.0); %Lymphocytes 19.2 % (21.0-51.0); %Monocytes 9.1 % (0.0-10.0); %Neutrophils 68.8 % (42.0-75.0); Hemoglobin 7.9 g/dL (12.0-16.0); Mean Corpuscular HGB CONC 32.6 g/dL (32.0-36.0); Mean Corpuscular Hemoglobin 30.2 pg (27.0-31.0); Mean Corpuscular Volume 92.8 fL (78.0-98.0); Mean Platelet Volume 7.7 fL (7.4-10.4); Platelet Count 318 thou/uL (130-400); RBC Distribution Width 13.5 % (11.5-14.5); Red Blood Cell (RBC) Count 2.61 mill/uL (4.20-5.40)
[2020-12-20] MEDS: HYDROcodone/Acetaminophen 5/325 mg Tablet PO PRN (09:24)
[2020-12-20] MEDS: Metoprolol Tartrate 25 MG TAB PO SCH ×2 (09:26→20:32)
[2020-12-20] MEDS: Fish Oil 1,000 MG CAP PO SCH (09:31)
[2020-12-20] MEDS: Aspirin 81 mg Enteric Coated Tablet PO SCH (09:31)
[2020-12-20] MEDS: Multivit, Therapeutic 1 TAB PO SCH (09:31)
[2020-12-20] MEDS: Cholecalciferol 1,000 UNITS (25 MCG) TAB PO SCH (09:32)
[2020-12-20] MEDS: Furosemide 20 MG TAB PO SCH (09:32)
[2020-12-20] MEDS: Lisinopril 5 MG TAB PO SCH (09:32)
[2020-12-20] MEDS: NPH, Human Insulin Isophane 300 UNIT/3 ML VIAL SC SCH ×2 (09:41→20:48)
[2020-12-20] MEDS ORDERED: NPH, Human Insulin Isophane 300 UNIT/3 ML VIAL SC SCH (13:30)
[2020-12-20] MEDS ORDERED: Amlodipine 5 MG TAB PO SCH (14:00)
[2020-12-20] MEDS: Morphine 2 MG/ML VIAL SLOW IVP PRN (16:31)
[2020-12-20] MEDS: Atorvastatin Calcium 40 MG TAB PO SCH (20:32)
[2020-12-20] MEDS: Enoxaparin Sodium 60 MG/0.6 ML SYRINGE SC SCH (20:32)
[2020-12-20] MEDS: Insulin Regular 300 UNITS/3 ML VIAL SC PRN (20:48)
[2020-12-21] MEDS: HYDROcodone/Acetaminophen 5/325 mg Tablet PO PRN ×2 (00:57→13:54)
[2020-12-21 05:35] LABS: Band 29 % (5-11); Hemoglobin 9.3 g/dL (12.0-16.0); Lymphocytes 3 % (21-51); MDiff Complete? YES; Mean Corpuscular HGB CONC 31.9 g/dL (32.0-36.0); Mean Corpuscular Hemoglobin 29.4 pg (27.0-31.0); Mean Corpuscular Volume 92.2 fL (78.0-98.0); Monocytes 6 % (0-10); Neutrophil 62 % (42-75); Platelet Count 365 thou/uL (130-400); Platelet Morphology Comment Appears Adequate; RBC Distribution Width 13.5 % (11.5-14.5); Red Blood Cell (RBC) Count 3.17 mill/uL (4.20-5.40); White Blood Cell (WBC) Count 22.1 thou/uL (4.8-10.8)
[2020-12-21 13:28] LABS: RBC Count-Automated (BF) 120792 /cu.mm; WBC/Nucleated-Auto (BF) 1569 uL
[2020-12-21] MEDS: Lisinopril 5 MG TAB PO SCH (13:31)
[2020-12-21] MEDS: Amlodipine 5 MG TAB PO SCH (13:31)
[2020-12-21] MEDS: Cholecalciferol 1,000 UNITS (25 MCG) TAB PO SCH (13:32)
[2020-12-21] MEDS: Furosemide 20 MG TAB PO SCH (13:32)
[2020-12-21] MEDS: Aspirin 81 mg Enteric Coated Tablet PO SCH (13:32)
[2020-12-21] MEDS: Metoprolol Tartrate 25 MG TAB PO SCH ×2 (13:32→20:10)
[2020-12-21] MEDS: Fish Oil 1,000 MG CAP PO SCH (13:32)
[2020-12-21] MEDS: Multivit, Therapeutic 1 TAB PO SCH (13:33)
[2020-12-21 13:50] LABS: Body Fluid Source Pleural Fluid
[2020-12-21 13:51] LABS: BF Color Red; Clarity Cloudy/Turbid (Clear); Tube # 2
[2020-12-21] MEDS: NPH, Human Insulin Isophane 300 UNIT/3 ML VIAL SC SCH ×2 (14:07→21:16)
[2020-12-21 14:19] LABS: BF Segmented Neutrophils 80 %; Cell Count Non Hematic 10 %; Eosinophils 1 %; Lymphocytes 9 %
[2020-12-21 14:47] LABS: Pleural Fluid, Amylase Less than 30 U/L (Not Available); Pleural Fluid, Glucose 115 mg/dL; Pleural Fluid, LDH 441 U/L (Not Available); Pleural Fluid, Protein 1.2 g/dL
[2020-12-21] MEDS: Cefepime 1 GM in Sodium Chloride 0.9% 100 ML IVPB SCH (16:57)
[2020-12-21] MEDS: Morphine 2 MG/ML VIAL SLOW IVP PRN (18:37)
[2020-12-21] MEDS: Atorvastatin Calcium 40 MG TAB PO SCH (20:10)
[2020-12-21] MEDS: Enoxaparin Sodium 60 MG/0.6 ML SYRINGE SC SCH (20:10)
[2020-12-21] MEDS: Insulin Regular 300 UNITS/3 ML VIAL SC PRN (21:26)
[2020-12-22] MEDS: HYDROcodone/Acetaminophen 5/325 mg Tablet PO PRN ×2 (00:30→08:06)
[2020-12-22 04:42] LABS: #Eosinphils 0.2 thou/uL (0.0-0.7); #Lymphocytes 3.2 thou/uL (1.20-3.40); #Monocytes 1.1 thou/uL (0.11-0.59); #Neutrophils 13.6 thou/uL (1.40-6.50); %Basophils 0.2 % (0.0-1.0); %Eosinophils 1.1 % (0.0-10.0); %Lymphocytes 17.4 % (21.0-51.0); %Monocytes 6.1 % (0.0-10.0); %Neutrophils 75.1 % (42.0-75.0); Hemoglobin 8.2 g/dL (12.0-16.0); Mean Corpuscular HGB CONC 31.4 g/dL (32.0-36.0); Mean Corpuscular Hemoglobin 28.8 pg (27.0-31.0); Mean Corpuscular Volume 91.7 fL (78.0-98.0); Mean Platelet Volume 7.6 fL (7.4-10.4); Platelet Count 371 thou/uL (130-400); RBC Distribution Width 13.4 % (11.5-14.5); Red Blood Cell (RBC) Count 2.85 mill/uL (4.20-5.40); White Blood Cell (WBC) Count 18.2 thou/uL (4.8-10.8)
[2020-12-22 04:58] LABS: Anion Gap 14 mmol/L (10-20); BUN (Urea Nitrogen) 25 mg/dL (9.8-20.1); Calc. Creatinine Clearance 25 mL/min (70-130); Calcium 7.8 mg/dL (7.8-10.44); Carbon Dioxide 21 mmol/L (23-31); Chloride 105 mmol/L (98-107); Potassium 3.5 mmol/L (3.5-5.1); Sodium 136 mmol/L (136-145)
[2020-12-22 04:59] LABS: Glucose 32 mg/dL (83-110)
[2020-12-22] MEDS: Cefepime 1 GM in Sodium Chloride 0.9% 100 ML IVPB SCH ×2 (06:26→12:30)
[2020-12-22] MEDS ORDERED: Potassium Chloride 20 MEQ TAB PO SCH (06:30)
[2020-12-22] MEDS: Multivit, Therapeutic 1 TAB PO SCH (08:05)
[2020-12-22] MEDS: Furosemide 20 MG TAB PO SCH (08:05)
[2020-12-22] MEDS: Aspirin 81 mg Enteric Coated Tablet PO SCH (08:05)
[2020-12-22] MEDS: Metoprolol Tartrate 25 MG TAB PO SCH ×2 (08:05→20:12)
[2020-12-22] MEDS: Fish Oil 1,000 MG CAP PO SCH (08:05)
[2020-12-22] MEDS: Amlodipine 5 MG TAB PO SCH (08:05)
[2020-12-22] MEDS: Cholecalciferol 1,000 UNITS (25 MCG) TAB PO SCH (08:06)
[2020-12-22] MEDS: Lisinopril 5 MG TAB PO SCH (08:06)
[2020-12-22] MEDS: NPH, Human Insulin Isophane 300 UNIT/3 ML VIAL SC SCH ×2 (08:28→20:15)
[2020-12-22] MEDS: Morphine 2 MG/ML VIAL SLOW IVP PRN ×2 (12:29→18:39)
[2020-12-22] MEDS: Atorvastatin Calcium 40 MG TAB PO SCH (20:12)
[2020-12-22] MEDS: Enoxaparin Sodium 60 MG/0.6 ML SYRINGE SC SCH (20:13)
[2020-12-23] MEDS: HYDROcodone/Acetaminophen 5/325 mg Tablet PO PRN ×3 (01:48→21:07)
[2020-12-23] MEDS: Cefepime 1 GM in Sodium Chloride 0.9% 100 ML IVPB SCH (03:00)
[2020-12-23 04:47] LABS: #Basophils 0.1 thou/uL (0.0-0.2); #Eosinphils 0.3 thou/uL (0.0-0.7); #Lymphocytes 2.8 thou/uL (1.20-3.40); #Monocytes 0.9 thou/uL (0.11-0.59); #Neutrophils 11.5 thou/uL (1.40-6.50); %Basophils 0.5 % (0.0-1.0); %Lymphocytes 18.2 % (21.0-51.0); %Monocytes 5.8 % (0.0-10.0); %Neutrophils 73.6 % (42.0-75.0); Hemoglobin 7.9 g/dL (12.0-16.0); Mean Corpuscular HGB CONC 31.2 g/dL (32.0-36.0); Mean Corpuscular Hemoglobin 28.9 pg (27.0-31.0); Mean Corpuscular Volume 92.7 fL (78.0-98.0); Mean Platelet Volume 7.6 fL (7.4-10.4); Platelet Count 337 thou/uL (130-400); RBC Distribution Width 13.8 % (11.5-14.5); Red Blood Cell (RBC) Count 2.73 mill/uL (4.20-5.40); White Blood Cell (WBC) Count 15.6 thou/uL (4.8-10.8)
[2020-12-23] MEDS: Aspirin 81 mg Enteric Coated Tablet PO SCH (08:22)
[2020-12-23] MEDS: Amlodipine 5 MG TAB PO SCH (08:22)
[2020-12-23] MEDS: Metoprolol Tartrate 25 MG TAB PO SCH ×2 (08:22→20:01)
[2020-12-23] MEDS: Cholecalciferol 1,000 UNITS (25 MCG) TAB PO SCH (08:22)
[2020-12-23] MEDS: Lisinopril 5 MG TAB PO SCH (08:22)
[2020-12-23] MEDS: Fish Oil 1,000 MG CAP PO SCH (08:23)
[2020-12-23] MEDS: Furosemide 20 MG TAB PO SCH (08:23)
[2020-12-23] MEDS: Multivit, Therapeutic 1 TAB PO SCH (08:23)
[2020-12-23] MEDS: NPH, Human Insulin Isophane 300 UNIT/3 ML VIAL SC SCH (08:35)
[2020-12-23] MEDS ORDERED: Nystatin Powder 15 GM BOT TOP PRN (14:22)
[2020-12-23] MEDS: Enoxaparin Sodium 60 MG/0.6 ML SYRINGE SC SCH (20:00)
[2020-12-23] MEDS: Atorvastatin Calcium 40 MG TAB PO SCH (20:01)
[2020-12-24] MEDS: HYDROcodone/Acetaminophen 5/325 mg Tablet PO PRN ×2 (01:00→10:03)
[2020-12-24 05:07] LABS: #Basophils 0.1 thou/uL (0.0-0.2); #Eosinphils 0.3 thou/uL (0.0-0.7); #Lymphocytes 2.6 thou/uL (1.20-3.40); #Monocytes 0.9 thou/uL (0.11-0.59); %Basophils 0.7 % (0.0-1.0); %Eosinophils 2.5 % (0.0-10.0); %Monocytes 7.5 % (0.0-10.0); %Neutrophils 67.3 % (42.0-75.0); Hemoglobin 7.4 g/dL (12.0-16.0); Mean Corpuscular HGB CONC 32.9 g/dL (32.0-36.0); Mean Corpuscular Hemoglobin 30.5 pg (27.0-31.0); Mean Corpuscular Volume 92.5 fL (78.0-98.0); Mean Platelet Volume 7.9 fL (7.4-10.4); Platelet Count 326 thou/uL (130-400); RBC Distribution Width 13.3 % (11.5-14.5); Red Blood Cell (RBC) Count 2.43 mill/uL (4.20-5.40); White Blood Cell (WBC) Count 11.8 thou/uL (4.8-10.8)
[2020-12-24] MEDS: NPH, Human Insulin Isophane 300 UNIT/3 ML VIAL SC SCH ×2 (06:07→09:56)
[2020-12-24] MEDS: Lisinopril 5 MG TAB PO SCH (09:53)
[2020-12-24] MEDS: Furosemide 20 MG TAB PO SCH (09:54)
[2020-12-24] MEDS: Multivit, Therapeutic 1 TAB PO SCH (09:54)
[2020-12-24] MEDS: Fish Oil 1,000 MG CAP PO SCH (09:54)
[2020-12-24] MEDS: Metoprolol Tartrate 25 MG TAB PO SCH (09:54)
[2020-12-24] MEDS: Cholecalciferol 1,000 UNITS (25 MCG) TAB PO SCH (09:54)
[2020-12-24] MEDS: Amlodipine 5 MG TAB PO SCH (09:54)
[2020-12-24] MEDS: Aspirin 81 mg Enteric Coated Tablet PO SCH (09:55)
[2020-12-24 16:16] VITALS: TEMP 98.8
[2020-12-24 16:38] VITALS: BP 132/64
== END 2020-12-24 18:50 | disposition home health service (06) | DRG 280 ==
LOC: ERS 22:06 → IMCU/EMU 23:21 → 2SE 12-16 23:43
PROVIDERS: ADMIT Internal Medicine; ATTEND Internal Medicine
PROC: 5A1945Z Respiratory Ventilation, 24-96 Consecutive Hours (ICD-10-PCS; principal; 2020-12-06)
PROC: 0BH17EZ Insertion of Endotracheal Airway into Trachea, Via Natural or Artificial Opening (ICD-10-PCS; 2020-12-06)
PROC: 0D9670Z Drainage of Stomach with Drainage Device, Via Natural or Artificial Opening (ICD-10-PCS; 2020-12-06)
PROC: 0W993ZX Drainage of Right Pleural Cavity, Percutaneous Approach, Diagnostic (ICD-10-PCS; 2020-12-21)
DX: I16.0 Hypertensive urgency (principal); J96.01 Acute respiratory failure with hypoxia; I21.A1 Myocardial infarction type 2; E11.10 Type 2 diabetes mellitus with ketoacidosis without coma; G93.41 Metabolic encephalopathy; I50.23 Acute on chronic systolic (congestive) heart failure; J69.0 Pneumonitis due to inhalation of food and vomit; I47.1 Supraventricular tachycardia; N17.9 Acute kidney failure, unspecified; E87.0 Hyperosmolality and hypernatremia; I42.0 Dilated cardiomyopathy; N18.4 Chronic kidney disease, stage 4 (severe); R47.01 Aphasia; J91.8 Pleural effusion in other conditions classified elsewhere; I13.0 Hypertensive heart and chronic kidney disease with heart failure and stage 1 through stage 4 chronic kidney disease, or unspecified chronic kidney disease; Z20.822 Contact with and (suspected) exposure to COVID-19; R13.12 Dysphagia, oropharyngeal phase; E78.5 Hyperlipidemia, unspecified; E11.65 Type 2 diabetes mellitus with hyperglycemia; E78.00 Pure hypercholesterolemia, unspecified; E11.22 Type 2 diabetes mellitus with diabetic chronic kidney disease; E11.51 Type 2 diabetes mellitus with diabetic peripheral angiopathy without gangrene; F32.9 Major depressive disorder, single episode, unspecified; D63.1 Anemia in chronic kidney disease; D72.829 Elevated white blood cell count, unspecified; E11.649 Type 2 diabetes mellitus with hypoglycemia without coma; L89.152 Pressure ulcer of sacral region, stage 2; Z89.511 Acquired absence of right leg below knee; I25.2 Old myocardial infarction; Z82.49 Family history of ischemic heart disease and other diseases of the circulatory system; Z83.3 Family history of diabetes mellitus; Z89.512 Acquired absence of left leg below knee; Z91.14 Patient's other noncompliance with medication regimen; Z90.49 Acquired absence of other specified parts of digestive tract; Z90.710 Acquired absence of both cervix and uterus; Z98.49 Cataract extraction status, unspecified eye; Z79.899 Other long term (current) drug therapy; Z79.4 Long term (current) use of insulin; Z79.82 Long term (current) use of aspirin; K52.839 Microscopic colitis, unspecified; Z87.891 Personal history of nicotine dependence
CPT/HCPCS: 31500; 36415; 36416; 36600; 51702; 70450; 70496; 70498; 71045; 74018; 74176; 74230; 80048; 80053; 81003; 81015; 82010; 82140; 82150; 82550; 82805; 82945; 83605; 83615; 83630; 83735; 83880; 84100; 84145; 84157; 84439; 84443; 84484; 85025; 85060; 85610; 85730; 87040; 87045; 87046; 87070; 87086; 87116; 87205; 87206; 87324; 87427; 87449; 87635; 87804; 89051; 93005; 93010; 93306; 94002; 94003; 94640; 96365; 96366; 96368; J0692; J0696; J1170; J1642; J1644; J1650; J1815; J1940; J2270; J2543; J2704; J3010; J3475; J3480; J3490; J7050; J7620; Q9967; U0002; U0003; U0005

== ENCOUNTER 2021-01-16 02:08 | Emergency (ER) | payer MEDICARE ==
[2021-01-16 02:43] LABS: Hemoglobin 9.3 g/dL (12.0-16.0); Mean Corpuscular Hemoglobin 29.7 pg (27.0-31.0); Mean Corpuscular Volume 90.1 fL (78.0-98.0); Mean Platelet Volume 7.6 fL (7.4-10.4); Platelet Count 361 thou/uL (130-400); RBC Distribution Width 14.1 % (11.5-14.5); Red Blood Cell (RBC) Count 3.13 mill/uL (4.20-5.40); White Blood Cell (WBC) Count 14.9 thou/uL (4.8-10.8)
[2021-01-16 02:46] LABS: Amphetamine Not Detected (NotDetected); Bacteria/HPF None Seen HPF (None Seen); Barbiturates Screen Not Detected (NotDetected); Benzodiazepine Screen Not Detected (NotDetected); Bilirubin Negative (Negative); Blood, Urine Negative (Negative); Clarity Turbid (Clear); Cocaine Metabolite Screen Not Detected (NotDetected); Glucose, Urine (Dipstick) Normal (Negative); Ketone, Urine Negative (Negative); Leukocyte Negative Leu/uL (Negative); Medtox Control Line Valid? VALID (VALID); Medtox Reader # READER 4; Methadone Not Detected (NotDetected); Methamphetamine Not Detected (NotDetected); Nitrite Negative (Negative); Opiate Screen Not Detected (NotDetected); Oxycodone Screen Not Detected (NotDetected); Phencyclidine (PCP) Not Detected (NotDetected); Protein, Urine (Dipstick) 300 mg/dL (Neg-Trace); RBC/HPF None Seen HPF (0-3); Specific Gravity, Urine 1.013 (1.002-1.036); Squamous Epithelial 0-3 HPF (0-3); THC/Cannabinoid Screen Not Detected (NotDetected); Tricyclic Screen Not Detected (NotDetected); Urobilinogen Normal mg/dL (Less than 2); WBC/HPF None Seen HPF (0-3); pH, Urine 5.5 (5.0-9.0)
[2021-01-16 02:54] LABS: ALT (SGPT) 28 U/L (8-55); AST (SGOT) 27 U/L (5-34); Acetaminophen Less than 6.0 mcg/mL (10.0-30.0); Albumin 3.3 g/dL (3.4-4.8); Alcohol Less than 10 mg/dL (Less than 10); Alkaline Phosphatase 85 U/L (40-110); Anion Gap 16 mmol/L (10-20); BUN (Urea Nitrogen) 33 mg/dL (9.8-20.1); Bilirubin, Total 0.2 mg/dL (0.2-1.2); Calc. Creatinine Clearance 0 mL/min (70-130); Calcium 7.3 mg/dL (7.8-10.44); Carbon Dioxide 12 mmol/L (23-31); Chloride 114 mmol/L (98-107); Glucose 174 mg/dL (83-110); Potassium 3.7 mmol/L (3.5-5.1); Protein, Total 6.3 g/dL (5.8-8.1); Salicylate Less than 8.0 mg/dL (15.0-30.0); Sodium 138 mmol/L (136-145)
[2021-01-16 03:05] LABS: Eosinophils 2 % (0-10); Lymphocytes 41 % (21-51); MDiff Complete? YES; Monocytes 9 % (0-10); Neutrophil 47 % (42-75); Platelet Morphology Comment Appears Adequate
[2021-01-16 03:58] LABS: Anion Gap 12 mmol/L (10-20); BUN (Urea Nitrogen) 31 mg/dL (9.8-20.1); Calc. Creatinine Clearance 0 mL/min (70-130); Calcium 7.7 mg/dL (7.8-10.44); Carbon Dioxide 19 mmol/L (23-31); Chloride 114 mmol/L (98-107); Glucose 204 mg/dL (83-110); Potassium 3.8 mmol/L (3.5-5.1); Sodium 141 mmol/L (136-145)
== END 2021-01-16 04:24 | disposition home or self-care (01) ==
LOC: ERS 02:08
DX: E11.649 Type 2 diabetes mellitus with hypoglycemia without coma (principal); E78.5 Hyperlipidemia, unspecified; E78.00 Pure hypercholesterolemia, unspecified; I10 Essential (primary) hypertension; Z87.891 Personal history of nicotine dependence; Z79.4 Long term (current) use of insulin
CPT/HCPCS: 36415; 51701; 80053; 80306; 80307; 81003; 81015; 84484; 85025; 93005

== ENCOUNTER 2021-04-02 21:08 | Emergency (ER) | payer MEDICARE ==
[2021-04-03] MEDS ORDERED: Morphine 4 MG/ML VIAL ONE (00:07)
== END 2021-04-03 00:32 | disposition home or self-care (01) ==
LOC: ERS 21:08
DX: M25.511 Pain in right shoulder (principal); E78.5 Hyperlipidemia, unspecified; E78.00 Pure hypercholesterolemia, unspecified; E11.9 Type 2 diabetes mellitus without complications; I10 Essential (primary) hypertension; Z87.891 Personal history of nicotine dependence
CPT/HCPCS: 93005; 96372; J2270

== ENCOUNTER 2021-04-06 08:45 | Emergency (ER) | payer MEDICARE ==
[2021-04-06 10:36] LABS: #Basophils 0.1 thou/uL (0.0-0.2); #Eosinphils 0.4 thou/uL (0.0-0.7); #Lymphocytes 2.6 thou/uL (1.20-3.40); #Monocytes 0.7 thou/uL (0.11-0.59); #Neutrophils 5.6 thou/uL (1.40-6.50); %Eosinophils 4.5 % (0.0-10.0); %Lymphocytes 27.9 % (21.0-51.0); %Neutrophils 59.5 % (42.0-75.0); Hemoglobin 9.9 g/dL (12.0-16.0); Mean Corpuscular HGB CONC 31.6 g/dL (32.0-36.0); Mean Corpuscular Hemoglobin 27.9 pg (27.0-31.0); Mean Corpuscular Volume 88.4 fL (78.0-98.0); Mean Platelet Volume 7.2 fL (7.4-10.4); Platelet Count 341 thou/uL (130-400); RBC Distribution Width 13.5 % (11.5-14.5); Red Blood Cell (RBC) Count 3.54 mill/uL (4.20-5.40); White Blood Cell (WBC) Count 9.4 thou/uL (4.8-10.8)
[2021-04-06] MEDS ORDERED: Morphine 4 MG/ML VIAL ONE (10:36)
[2021-04-06] MEDS ORDERED: Acetaminophen 500 MG TAB ONE (10:36)
[2021-04-06] MEDS ORDERED: Cyclobenzaprine 10 MG TAB ONE (10:36)
[2021-04-06 11:00] LABS: ALT (SGPT) 43 U/L (8-55); AST (SGOT) 24 U/L (5-34); Albumin 3.9 g/dL (3.4-4.8); Alkaline Phosphatase 135 U/L (40-110); Anion Gap 14 mmol/L (10-20); BUN (Urea Nitrogen) 26 mg/dL (9.8-20.1); Bilirubin, Total 0.4 mg/dL (0.2-1.2); Calc. Creatinine Clearance 0 mL/min (70-130); Calcium 9.5 mg/dL (7.8-10.44); Carbon Dioxide 22 mmol/L (23-31); Chloride 108 mmol/L (98-107); Globulin 3.7 g/dL (2.4-3.5); Glucose 187 mg/dL (83-110); Potassium 4.4 mmol/L (3.5-5.1); Protein, Total 7.6 g/dL (5.8-8.1); Sodium 140 mmol/L (136-145)
== END 2021-04-06 11:50 | disposition home or self-care (01) ==
LOC: ERS 08:45
DX: M25.512 Pain in left shoulder (principal); E11.9 Type 2 diabetes mellitus without complications; Z79.4 Long term (current) use of insulin; I10 Essential (primary) hypertension; E78.5 Hyperlipidemia, unspecified; E78.00 Pure hypercholesterolemia, unspecified; Z87.891 Personal history of nicotine dependence
CPT/HCPCS: 36415; 80053; 84484; 85025; 93005; 96372; J2270

== ENCOUNTER 2021-08-26 09:18 | Inpatient (IN) | payer MEDICARE ==
[2021-08-26] MEDS ORDERED: Rocuronium Bromide 10 MG/ML (10ML VIAL) ONE (09:31)
[2021-08-26] MEDS ORDERED: Propofol 1,000 MG/100 ML VIAL IV ONE (09:31)
[2021-08-26 09:55] LABS: Mean Corpuscular HGB CONC 32.6 g/dL (32.0-36.0); Mean Corpuscular Hemoglobin 29.4 pg (27.0-31.0); Mean Corpuscular Volume 89.9 fL (78.0-98.0); Mean Platelet Volume 7.4 fL (7.4-10.4); Platelet Count 328 thou/uL (130-400); RBC Distribution Width 12.8 % (11.5-14.5); Red Blood Cell (RBC) Count 3.08 mill/uL (4.20-5.40); White Blood Cell (WBC) Count 15.4 thou/uL (4.8-10.8)
[2021-08-26 10:02] LABS: INR-International Normal Ratio 1.3; PTT 30.5 sec (22.9-36.1); Prothrombin Time 16.5 sec (12.0-14.7)
[2021-08-26] MEDS ORDERED: Iopamidol-370 76% 500 ML 1 ML ONE (10:10)
[2021-08-26 10:15] LABS: ALT (SGPT) 12 U/L (8-55); AST (SGOT) 16 U/L (5-34); Alkaline Phosphatase 117 U/L (40-110); Anion Gap 22 mmol/L (10-20); BUN (Urea Nitrogen) 30 mg/dL (9.8-20.1); Bilirubin, Total 0.2 mg/dL (0.2-1.2); Calc. Creatinine Clearance 0 mL/min (70-130); Calcium 8.1 mg/dL (7.8-10.44); Carbon Dioxide 13 mmol/L (23-31); Chloride 103 mmol/L (98-107); Globulin 2.4 g/dL (2.4-3.5); Glucose 386 mg/dL (83-110); Potassium 4.3 mmol/L (3.5-5.1); Protein, Total 5.4 g/dL (5.8-8.1); Sodium 134 mmol/L (136-145)
[2021-08-26 10:17] LABS: Band 10 % (5-11); Eosinophils 1 % (0-10); Lymphocytes 30 % (21-51); MDiff Complete? YES; Monocytes 4 % (0-10); Neutrophil 40 % (42-75); Platelet Morphology Comment Appears Adequate; Polychromasia SLIGHT = 2-3 cells (100X) (0-2/hpf); Reactive Lymphocytes 15 % (0-10); Schistocytes SLIGHT = 2-5 cells (100X) (0-1/hpf); Tear Drops SLIGHT = 2-5 cells (100X) (0-1/hpf)
[2021-08-26 10:20] LABS: Bilirubin Negative (Negative); Blood, Urine 1+ (Negative); Clarity Clear (Clear); Glucose, Urine (Dipstick) 300 mg/dL (Negative); Ketone, Urine Negative (Negative); Leukocyte Negative Leu/uL (Negative); Nitrite Negative (Negative); Protein, Urine (Dipstick) 300 mg/dL (Neg-Trace); RBC/HPF 0-3 HPF (0-3); Specific Gravity, Urine 1.016 (1.002-1.036); Squamous Epithelial None Seen HPF (0-3); Urobilinogen Normal mg/dL (Less than 2); WBC/HPF None Seen HPF (0-3)
[2021-08-26 10:21] LABS: Bacteria/HPF 1+ HPF (None Seen)
[2021-08-26 10:24] LABS: Amphetamine Not Detected (NotDetected); Barbiturates Screen Not Detected (NotDetected); Benzodiazepine Screen Not Detected (NotDetected); Cocaine Metabolite Screen Not Detected (NotDetected); Methadone Not Detected (NotDetected); Methamphetamine Not Detected (NotDetected); Opiate Screen Not Detected (NotDetected); Oxycodone Screen Not Detected (NotDetected); Phencyclidine (PCP) Not Detected (NotDetected); THC/Cannabinoid Screen Not Detected (NotDetected); Tricyclic Screen Not Detected (NotDetected)
[2021-08-26 10:24] LABS: Acetaminophen Less than 6.0 mcg/mL (10.0-30.0); Alcohol Less than 10 mg/dL (Less than 10); Salicylate Less than 8.0 mg/dL (15.0-30.0)
[2021-08-26] MEDS ORDERED: levETIRAcetam in NS 100 ML ONE (10:28)
[2021-08-26] MEDS ORDERED: levETIRAcetam in NS 1,000 MG in Premix Bag 1 BAG IVPB SCH (10:45)
[2021-08-26] MEDS ORDERED: Labetalol HCl 100 MG/20 ML VIAL ONE (11:17)
[2021-08-26] MEDS ORDERED: Ondansetron PF 4 MG/2 ML Vial IVP PRN (11:37)
[2021-08-26] MEDS ORDERED: niCARdipine 25 MG in Sodium Chloride 0.9% 250 ML 240 ML IVPB SCH (12:15)
[2021-08-26] MEDS ORDERED: Dextrose 50% Abboject 50 ML SYRINGE IVP PRN (12:15)
[2021-08-26] MEDS ORDERED: Dextrose 5% in Water 1,000 ML IV PRN (12:15)
[2021-08-26] MEDS ORDERED: Amlodipine 10 MG TAB PO SCH (12:30)
[2021-08-26] MEDS ORDERED: Lorazepam 2 MG/ML VIAL ONE (13:13)
[2021-08-26] MEDS: hydrALAZINE 20 MG/ML VIAL SLOW IVP PRN ×2 (14:49→20:28)
[2021-08-26] MEDS: Insulin Regular 300 UNITS/3 ML VIAL SC PRN (14:50)
[2021-08-26] MEDS ORDERED: FLU VACC QS2021-22(65YR UP)/PF 240 MCG/0.7 ML SYRINGE IM ONE (18:45)
[2021-08-27] MEDS: Insulin Regular 300 UNITS/3 ML VIAL SC PRN ×2 (05:51→11:38)
[2021-08-27] MEDS: hydrALAZINE 20 MG/ML VIAL SLOW IVP PRN ×3 (08:17→14:46)
[2021-08-27] MEDS: Amlodipine 10 MG TAB PO SCH (08:17)
[2021-08-27 09:00] LABS: ALT (SGPT) 16 U/L (8-55); AST (SGOT) 17 U/L (5-34); Albumin 3.7 g/dL (3.4-4.8); Alkaline Phosphatase 123 U/L (40-110); Anion Gap 16 mmol/L (10-20); BUN (Urea Nitrogen) 32 mg/dL (9.8-20.1); Bilirubin, Total 0.4 mg/dL (0.2-1.2); Calc. Creatinine Clearance 17 mL/min (70-130); Calcium 9.3 mg/dL (7.8-10.44); Carbon Dioxide 21 mmol/L (23-31); Chloride 109 mmol/L (98-107); Globulin 3.6 g/dL (2.4-3.5); Glucose 299 mg/dL (83-110); Potassium 4.3 mmol/L (3.5-5.1); Protein, Total 7.3 g/dL (5.8-8.1); Sodium 142 mmol/L (136-145)
[2021-08-27 09:55] LABS: Hemoglobin 10.5 g/dL (12.0-16.0); Mean Corpuscular HGB CONC 33.9 g/dL (32.0-36.0); Mean Corpuscular Volume 85.7 fL (78.0-98.0); Mean Platelet Volume 8.1 fL (7.4-10.4); Platelet Count 350 thou/uL (130-400); RBC Distribution Width 13.1 % (11.5-14.5); Red Blood Cell (RBC) Count 3.61 mill/uL (4.20-5.40); White Blood Cell (WBC) Count 17.7 thou/uL (4.8-10.8)
[2021-08-27 11:59] LABS: Hemoglobin 10.5 g/dL (12.0-16.0)
[2021-08-27 12:13] LABS: Band 1 % (5-11); Lymphocytes 8 % (21-51); MDiff Complete? YES; Monocytes 4 % (0-10); Neutrophil 86 % (42-75); Platelet Morphology Comment Appears Adequate; Reactive Lymphocytes 1 % (0-10)
[2021-08-27] MEDS ORDERED: Lorazepam 2 MG/ML VIAL SLOW IVP SCH (13:30)
[2021-08-27 14:29] LABS: SARS-CoV-2 PCR by NAA Not Detected (NotDetected)
[2021-08-27] MEDS: Sodium Chloride 0.9% 1,000 ML IV SCH (14:59)
[2021-08-27] MEDS: levETIRAcetam in NS 500 MG in Premix Bag 1 BAG IVPB SCH (20:39)
[2021-08-28] MEDS: Insulin Regular 300 UNITS/3 ML VIAL SC PRN ×3 (00:40→18:52)
[2021-08-28] MEDS: Sodium Chloride 0.9% 1,000 ML IV SCH ×3 (02:17→11:11)
[2021-08-28 06:32] LABS: ALT (SGPT) 14 U/L (8-55); AST (SGOT) 20 U/L (5-34); Albumin 3.5 g/dL (3.4-4.8); Alkaline Phosphatase 107 U/L (40-110); Anion Gap 16 mmol/L (10-20); BUN (Urea Nitrogen) 33 mg/dL (9.8-20.1); Bilirubin, Total 0.4 mg/dL (0.2-1.2); Calc. Creatinine Clearance 16 mL/min (70-130); Carbon Dioxide 19 mmol/L (23-31); Chloride 115 mmol/L (98-107); Globulin 3.3 g/dL (2.4-3.5); Glucose 143 mg/dL (83-110); Potassium 3.6 mmol/L (3.5-5.1); Protein, Total 6.8 g/dL (5.8-8.1); Sodium 146 mmol/L (136-145)
[2021-08-28 06:54] LABS: Band 6 % (5-11); Eosinophils 1 % (0-10); Lymphocytes 9 % (21-51); MDiff Complete? YES; Mean Corpuscular HGB CONC 33.1 g/dL (32.0-36.0); Mean Corpuscular Hemoglobin 29.3 pg (27.0-31.0); Mean Corpuscular Volume 88.5 fL (78.0-98.0); Mean Platelet Volume 7.8 fL (7.4-10.4); Monocytes 9 % (0-10); Neutrophil 73 % (42-75); Platelet Count 311 thou/uL (130-400); Platelet Morphology Comment Appears Adequate; RBC Distribution Width 13.2 % (11.5-14.5); RBC Morphology Normal; Reactive Lymphocytes 2 % (0-10); White Blood Cell (WBC) Count 15.2 thou/uL (4.8-10.8)
[2021-08-28] MEDS ORDERED: Lorazepam 2 MG/ML VIAL SLOW IVP SCH ×2 (08:00→11:00)
[2021-08-28] MEDS: Amlodipine 10 MG TAB PO SCH (08:30)
[2021-08-28] MEDS: levETIRAcetam in NS 500 MG in Premix Bag 1 BAG IVPB SCH ×2 (08:30→20:48)
[2021-08-28] MEDS: Labetalol HCl 100 MG/20 ML VIAL SLOW IVP PRN ×2 (12:52→21:43)
[2021-08-28] MEDS: cefTRIAXone\\ROCEPHIN 2 GM in Sodium Chloride 0.9% 100 ML IVPB SCH (13:03)
[2021-08-28] MEDS ORDERED: Vancomycin HCl 1.25 GM in Sodium Chloride 0.9% 250 ML 250 ML IVPB SCH (14:00)
[2021-08-28 15:08] LABS: CSF, Glucose 115 mg/dl (40-70); CSF, Protein 64 mg/dL (15-40)
[2021-08-28 15:39] LABS: CSF Source CSF; Clarity Clear (Clear); Tube # EDTA
[2021-08-28] MEDS: AMPicillin 1 GM in Sodium Chloride 0.9% 100 ML IVPB SCH (19:18)
[2021-08-28] MEDS ORDERED: Vancomycin 1 GM in Premix Bag 1 BAG IVPB SCH (21:00)
[2021-08-29] MEDS: Labetalol HCl 100 MG/20 ML VIAL SLOW IVP PRN ×2 (01:27→05:06)
[2021-08-29] MEDS: AMPicillin 1 GM in Sodium Chloride 0.9% 100 ML IVPB SCH ×4 (01:32→18:35)
[2021-08-29] MEDS: Sodium Chloride 0.9% 1,000 ML IV SCH ×2 (05:06→06:42)
[2021-08-29 05:58] LABS: Eosinophils 1 % (0-10); Hemoglobin 9.5 g/dL (12.0-16.0); Hypochromia SLIGHT = 6-15 cells (100X) (0-5/hpf); Lymphocytes 7 % (21-51); MDiff Complete? YES; Mean Corpuscular HGB CONC 32.4 g/dL (32.0-36.0); Mean Corpuscular Hemoglobin 28.9 pg (27.0-31.0); Mean Corpuscular Volume 89.2 fL (78.0-98.0); Mean Platelet Volume 7.7 fL (7.4-10.4); Monocytes 9 % (0-10); Neutrophil 83 % (42-75); Platelet Count 310 thou/uL (130-400); Platelet Morphology Comment Appears Adequate; RBC Distribution Width 13.2 % (11.5-14.5); Red Blood Cell (RBC) Count 3.27 mill/uL (4.20-5.40); White Blood Cell (WBC) Count 12.9 thou/uL (4.8-10.8)
[2021-08-29 06:07] LABS: ALT (SGPT) 13 U/L (8-55); AST (SGOT) 18 U/L (5-34); Albumin 3.4 g/dL (3.4-4.8); Alkaline Phosphatase 100 U/L (40-110); Anion Gap 18 mmol/L (10-20); BUN (Urea Nitrogen) 28 mg/dL (9.8-20.1); Bilirubin, Total 0.3 mg/dL (0.2-1.2); Calc. Creatinine Clearance 20 mL/min (70-130); Carbon Dioxide 17 mmol/L (23-31); Chloride 118 mmol/L (98-107); Globulin 3.4 g/dL (2.4-3.5); Glucose 185 mg/dL (83-110); Potassium 3.5 mmol/L (3.5-5.1); Protein, Total 6.8 g/dL (5.8-8.1)
[2021-08-29 06:12] LABS: Sodium 149 mmol/L (136-145)
[2021-08-29] MEDS: Insulin Regular 300 UNITS/3 ML VIAL SC PRN ×3 (06:43→18:32)
[2021-08-29] MEDS: levETIRAcetam in NS 500 MG in Premix Bag 1 BAG IVPB SCH ×2 (09:13→21:53)
[2021-08-29] MEDS: Amlodipine 10 MG TAB PO SCH (09:14)
[2021-08-29] MEDS: Dextrose 5 %-0.45 % NaCl 1,000 ML IV SCH (09:43)
[2021-08-29] MEDS: cefTRIAXone\\ROCEPHIN 2 GM in Sodium Chloride 0.9% 100 ML IVPB SCH (14:04)
[2021-08-29 15:06] LABS: Vancomycin, Random 11.8 ug/mL (See Comment)
[2021-08-29] MEDS ORDERED: Vancomycin HCl 750 MG in Sodium Chloride 0.9% 250 ML 250 ML IVPB SCH (15:45)
[2021-08-30] MEDS: AMPicillin 1 GM in Sodium Chloride 0.9% 100 ML IVPB SCH ×4 (00:33→17:37)
[2021-08-30] MEDS: Dextrose 5 %-0.45 % NaCl 1,000 ML IV SCH (02:20)
[2021-08-30 05:57] LABS: #Eosinphils 0.3 thou/uL (0.0-0.7); #Lymphocytes 2.2 thou/uL (1.20-3.40); #Monocytes 0.9 thou/uL (0.11-0.59); #Neutrophils 7.4 thou/uL (1.40-6.50); %Basophils 0.4 % (0.0-1.0); %Eosinophils 2.6 % (0.0-10.0); %Lymphocytes 20.6 % (21.0-51.0); %Monocytes 8.5 % (0.0-10.0); %Neutrophils 67.9 % (42.0-75.0); Hemoglobin 8.4 g/dL (12.0-16.0); Mean Corpuscular HGB CONC 32.8 g/dL (32.0-36.0); Mean Corpuscular Volume 88.6 fL (78.0-98.0); Mean Platelet Volume 7.6 fL (7.4-10.4); Platelet Count 274 thou/uL (130-400); White Blood Cell (WBC) Count 10.8 thou/uL (4.8-10.8)
[2021-08-30 06:06] LABS: Band 1 % (5-11); Eosinophils 2 % (0-10); Hemoglobin 8.5 g/dL (12.0-16.0); Lymphocytes 18 % (21-51); MDiff Complete? YES; Mean Corpuscular HGB CONC 32.5 g/dL (32.0-36.0); Mean Corpuscular Hemoglobin 28.8 pg (27.0-31.0); Mean Corpuscular Volume 88.7 fL (78.0-98.0); Mean Platelet Volume 7.5 fL (7.4-10.4); Monocytes 4 % (0-10); Neutrophil 74 % (42-75); Platelet Count 276 thou/uL (130-400); Platelet Morphology Comment Appears Adequate; RBC Distribution Width 12.9 % (11.5-14.5); Red Blood Cell (RBC) Count 2.97 mill/uL (4.20-5.40); White Blood Cell (WBC) Count 10.8 thou/uL (4.8-10.8)
[2021-08-30] MEDS: Insulin Regular 300 UNITS/3 ML VIAL SC PRN ×2 (06:18→12:54)
[2021-08-30 06:24] LABS: ALT (SGPT) 11 U/L (8-55); AST (SGOT) 15 U/L (5-34); Alkaline Phosphatase 89 U/L (40-110); Anion Gap 12 mmol/L (10-20); BUN (Urea Nitrogen) 16 mg/dL (9.8-20.1); Bilirubin, Total 0.3 mg/dL (0.2-1.2); Calc. Creatinine Clearance 22 mL/min (70-130); Carbon Dioxide 20 mmol/L (23-31); Chloride 113 mmol/L (98-107); Globulin 2.8 g/dL (2.4-3.5); Glucose 213 mg/dL (83-110); Protein, Total 5.8 g/dL (5.8-8.1); Sodium 142 mmol/L (136-145)
[2021-08-30] MEDS: Amlodipine 10 MG TAB PO SCH (08:40)
[2021-08-30] MEDS: levETIRAcetam in NS 500 MG in Premix Bag 1 BAG IVPB SCH ×2 (08:50→22:24)
[2021-08-30] MEDS ORDERED: Potassium Bicarbonate/Cit Ac 20 MEQ TAB PO SCH (09:45)
[2021-08-30] MEDS: cefTRIAXone\\ROCEPHIN 2 GM in Sodium Chloride 0.9% 100 ML IVPB SCH (13:54)
[2021-08-30 16:35] LABS: Vancomycin, Random 13.7 ug/mL (See Comment)
[2021-08-30] MEDS ORDERED: Vancomycin HCl 750 MG in Sodium Chloride 0.9% 250 ML 250 ML IVPB SCH (17:30)
[2021-08-30] MEDS: Labetalol HCl 100 MG/20 ML VIAL SLOW IVP PRN (17:55)
[2021-08-30] MEDS: Acetaminophen 325 MG TAB PO PRN (22:23)
[2021-08-31] MEDS: AMPicillin 1 GM in Sodium Chloride 0.9% 100 ML IVPB SCH ×4 (00:16→19:24)
[2021-08-31] MEDS: Dextrose 5 %-0.45 % NaCl 1,000 ML IV SCH ×2 (01:35→16:17)
[2021-08-31 05:42] LABS: Band 6 % (5-11); Hemoglobin 8.1 g/dL (12.0-16.0); Hypochromia SLIGHT = 6-15 cells (100X) (0-5/hpf); Lymphocytes 20 % (21-51); MDiff Complete? YES; Mean Corpuscular HGB CONC 32.7 g/dL (32.0-36.0); Mean Corpuscular Hemoglobin 28.9 pg (27.0-31.0); Mean Corpuscular Volume 88.4 fL (78.0-98.0); Mean Platelet Volume 7.5 fL (7.4-10.4); Metamyelocyte 1 % (0-0); Monocytes 6 % (0-10); Neutrophil 67 % (42-75); Platelet Count 264 thou/uL (130-400); Platelet Morphology Comment Appears Adequate; RBC Distribution Width 12.8 % (11.5-14.5); White Blood Cell (WBC) Count 11.6 thou/uL (4.8-10.8)
[2021-08-31 05:55] LABS: ALT (SGPT) 11 U/L (8-55); AST (SGOT) 14 U/L (5-34); Albumin 2.8 g/dL (3.4-4.8); Alkaline Phosphatase 85 U/L (40-110); Anion Gap 11 mmol/L (10-20); BUN (Urea Nitrogen) 11 mg/dL (9.8-20.1); Bilirubin, Total 0.2 mg/dL (0.2-1.2); Calc. Creatinine Clearance 21 mL/min (70-130); Calcium 7.4 mg/dL (7.8-10.44); Carbon Dioxide 20 mmol/L (23-31); Chloride 112 mmol/L (98-107); Globulin 2.8 g/dL (2.4-3.5); Glucose 194 mg/dL (83-110); Protein, Total 5.6 g/dL (5.8-8.1); Sodium 140 mmol/L (136-145)
[2021-08-31 06:01] LABS: Potassium 2.6 mmol/L (3.5-5.1)
[2021-08-31] MEDS: Insulin Regular 300 UNITS/3 ML VIAL SC PRN (06:30)
[2021-08-31] MEDS ORDERED: Potassium Chloride 40 MEQ in Premix Bag 1 BAG IVPB SCH (08:00)
[2021-08-31] MEDS: Amlodipine 10 MG TAB PO SCH (08:43)
[2021-08-31] MEDS: levETIRAcetam in NS 500 MG in Premix Bag 1 BAG IVPB SCH ×2 (09:16→20:35)
[2021-08-31] MEDS: cefTRIAXone\\ROCEPHIN 2 GM in Sodium Chloride 0.9% 100 ML IVPB SCH (16:17)
[2021-08-31] MEDS: Acetaminophen 325 MG TAB PO PRN (16:24)
[2021-08-31] MEDS ORDERED: Potassium Chloride 20 MEQ TAB PO SCH (16:30)
[2021-08-31 17:49] LABS: Vancomycin, Random 14.5 ug/mL (See Comment)
[2021-08-31] MEDS ORDERED: Vancomycin HCl 750 MG in Sodium Chloride 0.9% 250 ML 250 ML IVPB SCH (18:15)
[2021-09-01] MEDS: AMPicillin 1 GM in Sodium Chloride 0.9% 100 ML IVPB SCH ×3 (00:26→12:36)
[2021-09-01] MEDS: Insulin Regular 300 UNITS/3 ML VIAL SC PRN ×4 (00:26→18:21)
[2021-09-01 05:16] LABS: Band 6 % (5-11); Hemoglobin 8.7 g/dL (12.0-16.0); Lymphocytes 17 % (21-51); MDiff Complete? YES; Mean Corpuscular HGB CONC 33.3 g/dL (32.0-36.0); Mean Corpuscular Hemoglobin 29.1 pg (27.0-31.0); Mean Corpuscular Volume 87.3 fL (78.0-98.0); Mean Platelet Volume 7.8 fL (7.4-10.4); Monocytes 8 % (0-10); Neutrophil 69 % (42-75); Platelet Count 269 thou/uL (130-400); Platelet Morphology Comment Appears Adequate; RBC Distribution Width 12.6 % (11.5-14.5); RBC Morphology Normal; Red Blood Cell (RBC) Count 2.98 mill/uL (4.20-5.40); White Blood Cell (WBC) Count 13.4 thou/uL (4.8-10.8)
[2021-09-01 05:23] LABS: ALT (SGPT) 13 U/L (8-55); AST (SGOT) 16 U/L (5-34); Albumin 3.1 g/dL (3.4-4.8); Alkaline Phosphatase 100 U/L (40-110); Anion Gap 11 mmol/L (10-20); BUN (Urea Nitrogen) 11 mg/dL (9.8-20.1); Bilirubin, Total 0.2 mg/dL (0.2-1.2); Calc. Creatinine Clearance 20 mL/min (70-130); Calcium 7.5 mg/dL (7.8-10.44); Carbon Dioxide 19 mmol/L (23-31); Chloride 113 mmol/L (98-107); Globulin 3.1 g/dL (2.4-3.5); Glucose 192 mg/dL (83-110); Potassium 3.3 mmol/L (3.5-5.1); Protein, Total 6.2 g/dL (5.8-8.1); Sodium 140 mmol/L (136-145)
[2021-09-01 05:25] LABS: Magnesium 0.9 mg/dL (1.6-2.6)
[2021-09-01] MEDS ORDERED: Magnesium Sulfate 4 GM in Sodium Chloride 0.9% 250 ML 250 ML IVPB SCH (06:00)
[2021-09-01] MEDS ORDERED: Magnesium Oxide 400 MG TAB PO SCH (06:00)
[2021-09-01] MEDS: Potassium Chloride 20 MEQ in Premix Bag 1 BAG IVPB SCH ×2 (08:57→12:08)
[2021-09-01] MEDS: Acetaminophen 325 MG TAB PO PRN (08:58)
[2021-09-01] MEDS: Amlodipine 10 MG TAB PO SCH (08:58)
[2021-09-01] MEDS: levETIRAcetam in NS 500 MG in Premix Bag 1 BAG IVPB SCH ×2 (09:00→21:20)
[2021-09-01] MEDS ORDERED: Vancomycin HCl 750 MG in Sodium Chloride 0.9% 250 ML 250 ML IVPB SCH (10:45)
[2021-09-01] MEDS ORDERED: Enoxaparin Sodium 60 MG/0.6 ML SYRINGE SC SCH (12:45)
[2021-09-01] MEDS ORDERED: Morphine 4 MG/ML VIAL SLOW IVP PRN (13:25)
[2021-09-01] MEDS: cefTRIAXone\\ROCEPHIN 2 GM in Sodium Chloride 0.9% 100 ML IVPB SCH (14:46)
[2021-09-02 06:00] LABS: ALT (SGPT) 12 U/L (8-55); AST (SGOT) 14 U/L (5-34); Albumin 2.8 g/dL (3.4-4.8); Alkaline Phosphatase 92 U/L (40-110); Anion Gap 12 mmol/L (10-20); BUN (Urea Nitrogen) 10 mg/dL (9.8-20.1); Bilirubin, Total 0.3 mg/dL (0.2-1.2); Calc. Creatinine Clearance 23 mL/min (70-130); Calcium 7.5 mg/dL (7.8-10.44); Carbon Dioxide 20 mmol/L (23-31); Chloride 110 mmol/L (98-107); Globulin 3.1 g/dL (2.4-3.5); Glucose 149 mg/dL (83-110); Potassium 3.3 mmol/L (3.5-5.1); Protein, Total 5.9 g/dL (5.8-8.1); Sodium 139 mmol/L (136-145)
[2021-09-02 06:15] LABS: Magnesium 0.9 mg/dL (1.6-2.6)
[2021-09-02] MEDS ORDERED: Magnesium Sulfate 4 GM in Sodium Chloride 0.9% 250 ML 250 ML IVPB SCH (06:30)
[2021-09-02 06:31] LABS: Band 4 % (5-11); Eosinophils 3 % (0-10); Hemoglobin 8.5 g/dL (12.0-16.0); Lymphocytes 15 % (21-51); MDiff Complete? YES; Mean Corpuscular Hemoglobin 28.6 pg (27.0-31.0); Mean Corpuscular Volume 86.8 fL (78.0-98.0); Mean Platelet Volume 7.8 fL (7.4-10.4); Monocytes 5 % (0-10); Neutrophil 72 % (42-75); Platelet Count 274 thou/uL (130-400); RBC Distribution Width 12.8 % (11.5-14.5); Red Blood Cell (RBC) Count 2.97 mill/uL (4.20-5.40); White Blood Cell (WBC) Count 15.9 thou/uL (4.8-10.8)
[2021-09-02] MEDS ORDERED: Potassium Chloride 20 MEQ TAB PO SCH (06:45)
[2021-09-02] MEDS: Amlodipine 10 MG TAB PO SCH (08:35)
[2021-09-02] MEDS: levETIRAcetam in NS 500 MG in Premix Bag 1 BAG IVPB SCH ×2 (08:36→20:53)
[2021-09-02] MEDS: Acetaminophen 325 MG TAB PO PRN ×2 (12:39→19:29)
[2021-09-02] MEDS: Insulin Regular 300 UNITS/3 ML VIAL SC PRN ×2 (12:40→18:21)
[2021-09-03] MEDS: Acetaminophen 325 MG TAB PO PRN (02:59)
[2021-09-03 05:45] LABS: Hemoglobin 8.3 g/dL (12.0-16.0); Mean Corpuscular HGB CONC 33.4 g/dL (32.0-36.0); Mean Corpuscular Hemoglobin 29.4 pg (27.0-31.0); Mean Corpuscular Volume 87.8 fL (78.0-98.0); Mean Platelet Volume 7.6 fL (7.4-10.4); Platelet Count 294 thou/uL (130-400); RBC Distribution Width 12.8 % (11.5-14.5); Red Blood Cell (RBC) Count 2.82 mill/uL (4.20-5.40); White Blood Cell (WBC) Count 13.6 thou/uL (4.8-10.8)
[2021-09-03 05:53] LABS: ALT (SGPT) 8 U/L (8-55); AST (SGOT) 9 U/L (5-34); Albumin 2.7 g/dL (3.4-4.8); Alkaline Phosphatase 94 U/L (40-110); Anion Gap 11 mmol/L (10-20); BUN (Urea Nitrogen) 10 mg/dL (9.8-20.1); Bilirubin, Total 0.2 mg/dL (0.2-1.2); Calc. Creatinine Clearance 21 mL/min (70-130); Carbon Dioxide 19 mmol/L (23-31); Chloride 111 mmol/L (98-107); Globulin 3.1 g/dL (2.4-3.5); Glucose 172 mg/dL (83-110); Potassium 3.4 mmol/L (3.5-5.1); Protein, Total 5.8 g/dL (5.8-8.1); Sodium 138 mmol/L (136-145)
[2021-09-03 06:33] LABS: Band 1 % (5-11); Eosinophils 2 % (0-10); Lymphocytes 24 % (21-51); MDiff Complete? YES; Monocytes 3 % (0-10); Myelocyte 1 % (0-0); Neutrophil 68 % (42-75)
[2021-09-03] MEDS: Insulin Regular 300 UNITS/3 ML VIAL SC PRN ×2 (06:36→19:04)
[2021-09-03] MEDS ORDERED: traMADol HCl 50 MG TAB PO SCH (06:45)
[2021-09-03] MEDS: Amlodipine 10 MG TAB PO SCH (07:55)
[2021-09-03] MEDS: levETIRAcetam in NS 500 MG in Premix Bag 1 BAG IVPB SCH (07:55)
[2021-09-03] MEDS ORDERED: Gabapentin 100 MG CAP PO SCH (12:30)
[2021-09-03] MEDS: Lidocaine 5% Patch TD SCH (13:14)
[2021-09-03] MEDS ORDERED: methylPREDNISolone Sod Succ 40 MG VIAL IVP SCH (17:15)
[2021-09-03] MEDS: Gabapentin 100 MG CAP PO SCH (21:10)
[2021-09-03] MEDS: levETIRAcetam 500 MG TAB PO SCH (21:10)
[2021-09-04] MEDS: Insulin Regular 300 UNITS/3 ML VIAL SC PRN ×3 (01:13→12:18)
[2021-09-04] MEDS: Transdermal Patch Removal TOP SCH (02:24)
[2021-09-04 05:07] LABS: ALT (SGPT) 10 U/L (8-55); AST (SGOT) 11 U/L (5-34); Albumin 2.8 g/dL (3.4-4.8); Alkaline Phosphatase 102 U/L (40-110); Anion Gap 13 mmol/L (10-20); BUN (Urea Nitrogen) 16 mg/dL (9.8-20.1); Bilirubin, Total 0.2 mg/dL (0.2-1.2); Calc. Creatinine Clearance 18 mL/min (70-130); Calcium 8.4 mg/dL (7.8-10.44); Carbon Dioxide 19 mmol/L (23-31); Chloride 106 mmol/L (98-107); Globulin 3.5 g/dL (2.4-3.5); Glucose 285 mg/dL (83-110); Potassium 4.2 mmol/L (3.5-5.1); Protein, Total 6.3 g/dL (5.8-8.1); Sodium 134 mmol/L (136-145)
[2021-09-04 06:55] LABS: Band 16 % (5-11); Hemoglobin 8.7 g/dL (12.0-16.0); Lymphocytes 9 % (21-51); MDiff Complete? YES; Mean Corpuscular HGB CONC 32.2 g/dL (32.0-36.0); Mean Corpuscular Hemoglobin 28.1 pg (27.0-31.0); Mean Corpuscular Volume 87.3 fL (78.0-98.0); Mean Platelet Volume 7.4 fL (7.4-10.4); Monocytes 2 % (0-10); Neutrophil 72 % (42-75); Platelet Count 322 thou/uL (130-400); RBC Distribution Width 12.4 % (11.5-14.5); Red Blood Cell (RBC) Count 3.09 mill/uL (4.20-5.40); White Blood Cell (WBC) Count 11.1 thou/uL (4.8-10.8)
[2021-09-04] MEDS: Gabapentin 100 MG CAP PO SCH ×3 (08:08→20:36)
[2021-09-04] MEDS: levETIRAcetam 500 MG TAB PO SCH ×2 (08:08→20:36)
[2021-09-04] MEDS: Amlodipine 10 MG TAB PO SCH (08:09)
[2021-09-04] MEDS: Lidocaine 5% Patch TD SCH (12:18)
[2021-09-04] MEDS ORDERED: HumaLOG 300 UNITS/3 ML VIAL SC SCH ×3 (12:45→17:00)
[2021-09-04 16:17] LABS: SARS-CoV-2 PCR by NAA Not Detected (NotDetected)
[2021-09-04] MEDS ORDERED: Lantus 1000 UNITS/10 ML VIAL SC SCH (23:30)
[2021-09-05] MEDS: Transdermal Patch Removal TOP SCH (01:57)
[2021-09-05 05:36] LABS: Hemoglobin 8.1 g/dL (12.0-16.0); Mean Corpuscular HGB CONC 32.2 g/dL (32.0-36.0); Mean Corpuscular Hemoglobin 28.1 pg (27.0-31.0); Mean Corpuscular Volume 87.3 fL (78.0-98.0); Mean Platelet Volume 7.5 fL (7.4-10.4); Platelet Count 352 thou/uL (130-400); RBC Distribution Width 12.5 % (11.5-14.5); Red Blood Cell (RBC) Count 2.87 mill/uL (4.20-5.40); White Blood Cell (WBC) Count 16.6 thou/uL (4.8-10.8)
[2021-09-05 05:52] LABS: ALT (SGPT) 8 U/L (8-55); AST (SGOT) 8 U/L (5-34); Albumin 2.8 g/dL (3.4-4.8); Alkaline Phosphatase 101 U/L (40-110); Anion Gap 14 mmol/L (10-20); BUN (Urea Nitrogen) 28 mg/dL (9.8-20.1); Bilirubin, Total 0.2 mg/dL (0.2-1.2); Calc. Creatinine Clearance 18 mL/min (70-130); Calcium 8.2 mg/dL (7.8-10.44); Carbon Dioxide 18 mmol/L (23-31); Chloride 108 mmol/L (98-107); Globulin 3.2 g/dL (2.4-3.5); Glucose 175 mg/dL (83-110); Potassium 3.5 mmol/L (3.5-5.1); Sodium 136 mmol/L (136-145)
[2021-09-05 06:03] LABS: Band 2 % (5-11); Lymphocytes 15 % (21-51); MDiff Complete? YES; Monocytes 5 % (0-10); Neutrophil 78 % (42-75)
[2021-09-05] MEDS: Insulin Regular 300 UNITS/3 ML VIAL SC PRN ×4 (06:28→17:38)
[2021-09-05] MEDS: Gabapentin 100 MG CAP PO SCH ×3 (08:38→22:23)
[2021-09-05] MEDS: levETIRAcetam 500 MG TAB PO SCH ×2 (08:38→22:24)
[2021-09-05] MEDS: Amlodipine 10 MG TAB PO SCH (08:47)
[2021-09-05] MEDS ORDERED: Cholecalciferol 1,000 UNITS (25 MCG) TAB PO SCH (09:00)
[2021-09-05] MEDS ORDERED: Non-Formulary Item 1 EACH (Cholecalciferol (Vitamin D3) [Vitamin D3] 1,000 UNIT Capsule) PO SCH (09:00)
[2021-09-05] MEDS ORDERED: Aspirin 81 mg Enteric Coated Tablet PO SCH (09:00)
[2021-09-05] MEDS: Lidocaine 5% Patch TD SCH (14:40)
[2021-09-05] MEDS: Sodium Chloride 0.9% 1,000 ML IV SCH (16:59)
[2021-09-05] MEDS ORDERED: Dextrose 50% Abboject 50 ML SYRINGE SLOW IVP PRN (21:14)
[2021-09-05] MEDS ORDERED: Ondansetron PF 4 MG/2 ML Vial IVP PRN (21:14)
[2021-09-05] MEDS ORDERED: Labetalol HCl 100 MG/20 ML VIAL SLOW IVP PRN (21:15)
[2021-09-05] MEDS ORDERED: Insulin Regular 300 UNITS/3 ML VIAL SC PRN (21:16)
[2021-09-05] MEDS ORDERED: Morphine 4 MG/ML VIAL SLOW IVP PRN (21:16)
[2021-09-05] MEDS ORDERED: Acetaminophen 325 MG TAB PO PRN (21:16)
[2021-09-05] MEDS: Lantus 1000 UNITS/10 ML VIAL SC SCH (22:22)
[2021-09-06] MEDS: Transdermal Patch Removal TOP SCH (01:38)
[2021-09-06 06:17] LABS: Hemoglobin 7.9 g/dL (12.0-16.0); Mean Corpuscular HGB CONC 32.8 g/dL (32.0-36.0); Mean Corpuscular Hemoglobin 28.8 pg (27.0-31.0); Mean Corpuscular Volume 87.7 fL (78.0-98.0); Mean Platelet Volume 7.4 fL (7.4-10.4); Platelet Count 378 thou/uL (130-400); RBC Distribution Width 12.6 % (11.5-14.5); Red Blood Cell (RBC) Count 2.74 mill/uL (4.20-5.40); White Blood Cell (WBC) Count 11.3 thou/uL (4.8-10.8)
[2021-09-06 06:35] LABS: ALT (SGPT) 8 U/L (8-55); AST (SGOT) 10 U/L (5-34); Albumin 2.7 g/dL (3.4-4.8); Alkaline Phosphatase 95 U/L (40-110); Anion Gap 10 mmol/L (10-20); BUN (Urea Nitrogen) 27 mg/dL (9.8-20.1); Bilirubin, Total 0.2 mg/dL (0.2-1.2); Calc. Creatinine Clearance 21 mL/min (70-130); Carbon Dioxide 22 mmol/L (23-31); Chloride 113 mmol/L (98-107); Globulin 3.1 g/dL (2.4-3.5); Glucose 78 mg/dL (83-110); Potassium 3.5 mmol/L (3.5-5.1); Protein, Total 5.8 g/dL (5.8-8.1); Sodium 141 mmol/L (136-145)
[2021-09-06 07:05] LABS: Band 5 % (5-11); Eosinophils 1 % (0-10); Lymphocytes 34 % (21-51); MDiff Complete? YES; Monocytes 3 % (0-10); Neutrophil 57 % (42-75)
[2021-09-06 07:46] VITALS: BMI 20.2
[2021-09-06] MEDS: Gabapentin 100 MG CAP PO SCH ×4 (08:32→23:00)
[2021-09-06] MEDS: levETIRAcetam 500 MG TAB PO SCH ×3 (08:33→23:01)
[2021-09-06] MEDS: Aspirin 81 mg Enteric Coated Tablet PO SCH (08:33)
[2021-09-06] MEDS: Amlodipine 10 MG TAB PO SCH (08:34)
[2021-09-06] MEDS: Cholecalciferol 1,000 UNITS (25 MCG) TAB PO SCH (08:34)
[2021-09-06] MEDS: Insulin Regular 300 UNITS/3 ML VIAL SC PRN (11:39)
[2021-09-06] MEDS: Sodium Chloride 0.9% 1,000 ML IV SCH (11:40)
[2021-09-06] MEDS: Lidocaine 5% Patch TD SCH (13:05)
[2021-09-06] MEDS: Lantus 1000 UNITS/10 ML VIAL SC SCH (23:02)
[2021-09-07] MEDS: Transdermal Patch Removal TOP SCH (02:53)
[2021-09-07 06:19] LABS: Mean Corpuscular HGB CONC 32.6 g/dL (32.0-36.0); Mean Corpuscular Hemoglobin 28.7 pg (27.0-31.0); Mean Platelet Volume 7.2 fL (7.4-10.4); Platelet Count 390 thou/uL (130-400); RBC Distribution Width 12.7 % (11.5-14.5); Red Blood Cell (RBC) Count 2.78 mill/uL (4.20-5.40)
[2021-09-07 06:20] LABS: ALT (SGPT) Less than 7 U/L (8-55); AST (SGOT) 9 U/L (5-34); Albumin 2.6 g/dL (3.4-4.8); Alkaline Phosphatase 94 U/L (40-110); Anion Gap 7 mmol/L (10-20); BUN (Urea Nitrogen) 20 mg/dL (9.8-20.1); Bilirubin, Total 0.2 mg/dL (0.2-1.2); Calc. Creatinine Clearance 21 mL/min (70-130); Calcium 8.1 mg/dL (7.8-10.44); Carbon Dioxide 23 mmol/L (23-31); Chloride 116 mmol/L (98-107); Globulin 3.1 g/dL (2.4-3.5); Glucose 113 mg/dL (83-110); Potassium 4.2 mmol/L (3.5-5.1); Protein, Total 5.7 g/dL (5.8-8.1); Sodium 142 mmol/L (136-145)
[2021-09-07 06:52] LABS: Band 4 % (5-11); Eosinophils 1 % (0-10); Lymphocytes 36 % (21-51); MDiff Complete? YES; Monocytes 8 % (0-10); Neutrophil 51 % (42-75)
[2021-09-07] MEDS: Sodium Chloride 0.9% 1,000 ML IV SCH (09:10)
[2021-09-07] MEDS: Gabapentin 100 MG CAP PO SCH ×2 (09:21→16:11)
[2021-09-07] MEDS: Amlodipine 10 MG TAB PO SCH (09:22)
[2021-09-07] MEDS: Cholecalciferol 1,000 UNITS (25 MCG) TAB PO SCH (09:22)
[2021-09-07] MEDS: levETIRAcetam 500 MG TAB PO SCH (09:22)
[2021-09-07] MEDS: Aspirin 81 mg Enteric Coated Tablet PO SCH (09:22)
[2021-09-07 11:58] VITALS: TEMP 97.7
[2021-09-07] MEDS: Insulin Regular 300 UNITS/3 ML VIAL SC PRN (12:07)
[2021-09-07 12:22] VITALS: BP 145/84
[2021-09-07] MEDS ORDERED: Clotrimazole 1 % Cream 30 GM TUBE TOP PRN (14:10)
[2021-09-07] MEDS: Lidocaine 5% Patch TD SCH (16:11)
== END 2021-09-07 16:48 | disposition home health service (06) | DRG 100 ==
LOC: ERS 09:18 → NEURO 12:28 → UNDODISIN 09-05 18:27
PROVIDERS: ADMIT Internal Medicine; ATTEND Internal Medicine
PROC: 009U3ZX Drainage of Spinal Canal, Percutaneous Approach, Diagnostic (ICD-10-PCS; principal; 2021-08-28)
DX: R56.9 Unspecified convulsions (principal); A41.52 Sepsis due to Pseudomonas; I67.83 Posterior reversible encephalopathy syndrome; Z20.822 Contact with and (suspected) exposure to COVID-19; G93.41 Metabolic encephalopathy; J96.01 Acute respiratory failure with hypoxia; I16.1 Hypertensive emergency; N17.9 Acute kidney failure, unspecified; L03.119 Cellulitis of unspecified part of limb; E87.0 Hyperosmolality and hypernatremia; R47.01 Aphasia; E78.5 Hyperlipidemia, unspecified; E78.00 Pure hypercholesterolemia, unspecified; N18.30 Chronic kidney disease, stage 3 unspecified; E11.22 Type 2 diabetes mellitus with diabetic chronic kidney disease; E11.51 Type 2 diabetes mellitus with diabetic peripheral angiopathy without gangrene; I12.9 Hypertensive chronic kidney disease with stage 1 through stage 4 chronic kidney disease, or unspecified chronic kidney disease; E87.6 Hypokalemia; E83.42 Hypomagnesemia; M48.061 Spinal stenosis, lumbar region without neurogenic claudication; L22 Diaper dermatitis; F03.90 Unspecified dementia, unspecified severity, without behavioral disturbance, psychotic disturbance, mood disturbance, and anxiety; Z87.891 Personal history of nicotine dependence; Z82.49 Family history of ischemic heart disease and other diseases of the circulatory system; Z83.3 Family history of diabetes mellitus; Z79.82 Long term (current) use of aspirin; Z79.4 Long term (current) use of insulin; Z79.899 Other long term (current) drug therapy; Z90.710 Acquired absence of both cervix and uterus; Z90.49 Acquired absence of other specified parts of digestive tract
CPT/HCPCS: 36415; 36416; 51701; 62270; 70450; 70496; 70498; 70551; 71045; 72128; 72131; 80053; 80202; 80306; 80307; 81003; 81015; 82945; 83735; 84157; 84484; 85007; 85025; 85027; 85610; 85730; 86592; 86612; 86635; 86698; 87070; 87205; 87324; 87449; 87529; 89051; 90471; 90662; 90732; 93005; 94760; 95816; 95819; 95957; 96365; 96366; 96375; 96376; G0008; G0009; J0290; J0360; J0696; J1815; J1953; J2060; J2270; J2704; J2920; J3370; J3475; J3480; J3490; J7050; Q9967; U0003; U0005

== ENCOUNTER 2021-12-05 14:00 | Emergency (ER) | payer MEDICARE | END 2021-12-05 15:00 | disposition home or self-care (01) | LOC: ERS 14:00 | DX: L03.114 Cellulitis of left upper limb (principal); E78.5 Hyperlipidemia, unspecified; E78.00 Pure hypercholesterolemia, unspecified; E11.9 Type 2 diabetes mellitus without complications; I10 Essential (primary) hypertension; Z87.891 Personal history of nicotine dependence | CPT/HCPCS: 99283 ==

== ENCOUNTER 2022-01-03 11:03 | Inpatient (IN) | payer MEDICARE ==
[2022-01-03 12:19] LABS: #Basophils 0.1 thou/uL (0.0-0.2); #Eosinphils 0.2 thou/uL (0.0-0.7); #Lymphocytes 1.8 thou/uL (1.20-3.40); #Monocytes 0.7 thou/uL (0.11-0.59); #Neutrophils 7.3 thou/uL (1.40-6.50); %Basophils 0.6 % (0.0-1.0); %Eosinophils 1.7 % (0.0-10.0); %Lymphocytes 17.9 % (21.0-51.0); %Monocytes 7.2 % (0.0-10.0); %Neutrophils 72.6 % (42.0-75.0); Hemoglobin 8.4 g/dL (12.0-16.0); Mean Corpuscular HGB CONC 32.2 g/dL (32.0-36.0); Mean Corpuscular Hemoglobin 27.4 pg (27.0-31.0); Mean Corpuscular Volume 84.9 fL (78.0-98.0); Mean Platelet Volume 6.6 fL (7.4-10.4); Platelet Count 583 thou/uL (130-400); RBC Distribution Width 14.2 % (11.5-14.5); Red Blood Cell (RBC) Count 3.05 mill/uL (4.20-5.40); White Blood Cell (WBC) Count 10.1 thou/uL (4.8-10.8)
[2022-01-03 12:38] LABS: Acetaminophen Less than 6.0 mcg/mL (10.0-30.0); Alcohol Less than 10 mg/dL (Less than 10); Salicylate Less than 8.0 mg/dL (15.0-30.0)
[2022-01-03 12:39] LABS: ALT (SGPT) 18 U/L (8-55); AST (SGOT) 29 U/L (5-34); Albumin 3.3 g/dL (3.4-4.8); Alkaline Phosphatase 147 U/L (40-110); Anion Gap 12 mmol/L (10-20); BUN (Urea Nitrogen) 17 mg/dL (9.8-20.1); Bilirubin, Total 0.2 mg/dL (0.2-1.2); Calc. Creatinine Clearance 0 mL/min (70-130); Calcium 8.1 mg/dL (7.8-10.44); Carbon Dioxide 21 mmol/L (23-31); Chloride 111 mmol/L (98-107); Glucose 214 mg/dL (83-110); Potassium 4.2 mmol/L (3.5-5.1); Protein, Total 6.3 g/dL (5.8-8.1); Sodium 140 mmol/L (136-145)
[2022-01-03 13:10] LABS: CKMB 1.9 ng/mL (0-6.6)
[2022-01-03 13:41] LABS: Bilirubin Negative (Negative); Blood, Urine 1+ (Negative); Clarity Turbid (Clear); Glucose, Urine (Dipstick) 150 mg/dL (Negative); Ketone, Urine Negative (Negative); Leukocyte Negative Leu/uL (Negative); Nitrite Negative (Negative); Protein, Urine (Dipstick) 300 mg/dL (Neg-Trace); Specific Gravity, Urine 1.012 (1.002-1.036); Squamous Epithelial None Seen HPF (0-3); Urobilinogen Normal mg/dL (Less than 2)
[2022-01-03 13:42] LABS: Bacteria/HPF 1+ HPF (None Seen)
[2022-01-03 13:50] LABS: Amphetamine Not Detected (NotDetected); Barbiturates Screen Not Detected (NotDetected); Benzodiazepine Screen Not Detected (NotDetected); Cocaine Metabolite Screen Not Detected (NotDetected); Methadone Not Detected (NotDetected); Methamphetamine Not Detected (NotDetected); Opiate Screen Not Detected (NotDetected); Oxycodone Screen Not Detected (NotDetected); Phencyclidine (PCP) Not Detected (NotDetected); THC/Cannabinoid Screen Not Detected (NotDetected); Tricyclic Screen Not Detected (NotDetected)
[2022-01-03] MEDS ORDERED: cefTRIAXone\\ROCEPHIN 1 GM VIAL ONE (14:50)
[2022-01-03] MEDS ORDERED: Dextrose 5% in Water 1,000 ML IV PRN (15:45)
[2022-01-03] MEDS ORDERED: Dextrose 50% Abboject 50 ML SYRINGE SLOW IVP PRN (15:45)
[2022-01-03 16:06] LABS: Troponin I 0.042 ng/mL (< 0.028)
[2022-01-03 18:19] VITALS: BMI 21.2
[2022-01-03 18:44] LABS: Troponin I 0.043 ng/mL (< 0.028)
[2022-01-03] MEDS ORDERED: Sodium Chloride 0.9% 1,000 ML IV SCH (19:45)
[2022-01-03] MEDS: Heparin 5,000 UNITS/ML VIAL SC SCH (22:40)
[2022-01-04 00:09] LABS: SARS-CoV-2 PCR by NAA Not Detected (NotDetected)
[2022-01-04 05:09] LABS: #Basophils 0.1 thou/uL (0.0-0.2); #Eosinphils 0.2 thou/uL (0.0-0.7); #Lymphocytes 2.1 thou/uL (1.20-3.40); #Monocytes 0.7 thou/uL (0.11-0.59); #Neutrophils 5.5 thou/uL (1.40-6.50); %Basophils 0.7 % (0.0-1.0); %Eosinophils 2.5 % (0.0-10.0); %Lymphocytes 24.9 % (21.0-51.0); %Monocytes 7.9 % (0.0-10.0); Hemoglobin 8.2 g/dL (12.0-16.0); Mean Corpuscular HGB CONC 32.2 g/dL (32.0-36.0); Mean Corpuscular Hemoglobin 27.4 pg (27.0-31.0); Mean Platelet Volume 6.6 fL (7.4-10.4); Platelet Count 541 thou/uL (130-400); RBC Distribution Width 14.2 % (11.5-14.5); White Blood Cell (WBC) Count 8.6 thou/uL (4.8-10.8)
[2022-01-04 05:33] LABS: Chloride 114 mmol/L (98-107); Potassium 3.9 mmol/L (3.5-5.1); Sodium 142 mmol/L (136-145)
[2022-01-04 05:34] LABS: Calcium 8.2 mg/dL (7.8-10.44); Glucose 74 mg/dL (83-110); Triglycerides 147 mg/dL (Less than 150)
[2022-01-04 05:36] LABS: Carbon Dioxide 20 mmol/L (23-31)
[2022-01-04 05:37] LABS: Calc. Creatinine Clearance 25 mL/min (70-130)
[2022-01-04 05:38] LABS: BUN (Urea Nitrogen) 14 mg/dL (9.8-20.1)
[2022-01-04 05:39] LABS: Cholesterol 101 mg/dl (< 200 Desired)
[2022-01-04 05:40] LABS: HDL Cholesterol 34 mg/dL (>60 Neg Risk); LDL Cholesterol, Calculated 38 mg/dL
[2022-01-04 05:48] LABS: Anion Gap 12 mmol/L (10-20)
[2022-01-04] MEDS ORDERED: Dextrose 5 %-0.45 % NaCl 1,000 ML IV SCH (06:15)
[2022-01-04] MEDS: Heparin 5,000 UNITS/ML VIAL SC SCH ×2 (09:14→21:57)
[2022-01-04] MEDS: Amlodipine 10 MG TAB PO SCH (09:14)
[2022-01-04] MEDS: HumaLOG 300 UNITS/3 ML VIAL SC PRN ×2 (12:15→18:20)
[2022-01-04] MEDS ORDERED: Lacosamide 200 MG in Sodium Chloride 0.9% 50 ML IVPB SCH (13:30)
[2022-01-04] MEDS: Melatonin 3 MG TAB PO PRN (21:57)
[2022-01-04] MEDS: Lacosamide 100 MG in Sodium Chloride 0.9% 50 ML IVPB SCH (21:58)
[2022-01-04 22:00] LABS: Bilirubin Negative (Negative); Blood, Urine Trace (Negative); Clarity Clear (Clear); Glucose, Urine (Dipstick) 100 mg/dL (Negative); Ketone, Urine Negative (Negative); Leukocyte Negative Leu/uL (Negative); Nitrite Negative (Negative); Protein, Urine (Dipstick) 300 mg/dL (Neg-Trace); RBC/HPF 0-3 HPF (0-3); Specific Gravity, Urine 1.013 (1.002-1.036); Squamous Epithelial 0-3 HPF (0-3); Urobilinogen Normal mg/dL (Less than 2); WBC/HPF 0-3 HPF (0-3)
[2022-01-04 22:11] LABS: Bacteria/HPF None Seen HPF (None Seen)
[2022-01-04 22:12] LABS: Urine Culture Reflex No No
[2022-01-05] MEDS: HumaLOG 300 UNITS/3 ML VIAL SC PRN ×2 (01:07→18:28)
[2022-01-05] MEDS: Acetaminophen 325 MG TAB PO PRN (01:08)
[2022-01-05 05:43] LABS: #Basophils 0.1 thou/uL (0.0-0.2); #Eosinphils 0.2 thou/uL (0.0-0.7); #Lymphocytes 2.8 thou/uL (1.20-3.40); #Monocytes 1.1 thou/uL (0.11-0.59); #Neutrophils 6.8 thou/uL (1.40-6.50); %Basophils 0.9 % (0.0-1.0); %Eosinophils 2.1 % (0.0-10.0); %Lymphocytes 25.2 % (21.0-51.0); %Monocytes 10.1 % (0.0-10.0); %Neutrophils 61.7 % (42.0-75.0); Hemoglobin 7.6 g/dL (12.0-16.0); Mean Corpuscular HGB CONC 30.8 g/dL (32.0-36.0); Mean Corpuscular Hemoglobin 26.4 pg (27.0-31.0); Mean Corpuscular Volume 85.7 fL (78.0-98.0); Mean Platelet Volume 6.7 fL (7.4-10.4); Platelet Count 502 thou/uL (130-400); RBC Distribution Width 14.3 % (11.5-14.5); Red Blood Cell (RBC) Count 2.87 mill/uL (4.20-5.40)
[2022-01-05 05:58] LABS: Anion Gap 10 mmol/L (10-20); BUN (Urea Nitrogen) 19 mg/dL (9.8-20.1); Calc. Creatinine Clearance 20 mL/min (70-130); Calcium 7.8 mg/dL (7.8-10.44); Carbon Dioxide 21 mmol/L (23-31); Chloride 113 mmol/L (98-107); Potassium 3.7 mmol/L (3.5-5.1); Sodium 140 mmol/L (136-145)
[2022-01-05 06:03] LABS: Glucose 48 mg/dL (83-110)
[2022-01-05] MEDS ORDERED: Lisinopril 10 MG TAB PO SCH (08:00)
[2022-01-05] MEDS: Amlodipine 10 MG TAB PO SCH (08:26)
[2022-01-05] MEDS: Heparin 5,000 UNITS/ML VIAL SC SCH ×2 (08:27→21:52)
[2022-01-05] MEDS: Lacosamide 100 MG in Sodium Chloride 0.9% 50 ML IVPB SCH (10:04)
[2022-01-05] MEDS: Lacosamide 150 MG in Sodium Chloride 0.9% 50 ML IVPB SCH (21:52)
[2022-01-05] MEDS: Melatonin 3 MG TAB PO PRN (21:55)
[2022-01-06 05:47] LABS: Hemoglobin 7.5 g/dL (12.0-16.0); Mean Corpuscular Hemoglobin 27.7 pg (27.0-31.0); Mean Corpuscular Volume 86.7 fL (78.0-98.0); Platelet Count 505 thou/uL (130-400); RBC Distribution Width 14.1 % (11.5-14.5); Red Blood Cell (RBC) Count 2.71 mill/uL (4.20-5.40); White Blood Cell (WBC) Count 9.5 thou/uL (4.8-10.8)
[2022-01-06 06:06] LABS: Anion Gap 13 mmol/L (10-20); BUN (Urea Nitrogen) 22 mg/dL (9.8-20.1); Calc. Creatinine Clearance 19 mL/min (70-130); Calcium 7.9 mg/dL (7.8-10.44); Carbon Dioxide 20 mmol/L (23-31); Chloride 113 mmol/L (98-107); Glucose 129 mg/dL (83-110); Potassium 3.9 mmol/L (3.5-5.1)
[2022-01-06 06:43] LABS: Sodium 140 mmol/L (136-145)
[2022-01-06] MEDS: Heparin 5,000 UNITS/ML VIAL SC SCH ×2 (09:35→21:15)
[2022-01-06] MEDS: Lacosamide 150 MG in Sodium Chloride 0.9% 50 ML IVPB SCH ×2 (09:35→21:37)
[2022-01-06] MEDS: Amlodipine 10 MG TAB PO SCH (09:35)
[2022-01-06] MEDS: Dextrose 5 %-0.45 % NaCl 1,000 ML IV SCH (11:58)
[2022-01-06] MEDS: HumaLOG 300 UNITS/3 ML VIAL SC PRN ×2 (12:01→17:24)
[2022-01-06] MEDS: Acetaminophen 325 MG TAB PO PRN (15:46)
[2022-01-07 05:51] LABS: Hemoglobin 7.4 g/dL (12.0-16.0); Mean Corpuscular HGB CONC 31.4 g/dL (32.0-36.0); Mean Corpuscular Hemoglobin 27.2 pg (27.0-31.0); Mean Corpuscular Volume 86.4 fL (78.0-98.0); Mean Platelet Volume 7.1 fL (7.4-10.4); Platelet Count 465 thou/uL (130-400); Red Blood Cell (RBC) Count 2.72 mill/uL (4.20-5.40)
[2022-01-07 06:12] LABS: Anion Gap 9 mmol/L (10-20); BUN (Urea Nitrogen) 19 mg/dL (9.8-20.1); Calc. Creatinine Clearance 20 mL/min (70-130); Calcium 7.9 mg/dL (7.8-10.44); Carbon Dioxide 21 mmol/L (23-31); Chloride 113 mmol/L (98-107); Glucose 185 mg/dL (83-110); Iron 17 ug/dL (50-170); Iron Binding Capacity, Total 259 mcg/dL (265-497); Potassium 4.2 mmol/L (3.5-5.1); Sodium 139 mmol/L (136-145)
[2022-01-07] MEDS: Dextrose 5 %-0.45 % NaCl 1,000 ML IV SCH (09:01)
[2022-01-07] MEDS: Heparin 5,000 UNITS/ML VIAL SC SCH ×2 (09:01→20:17)
[2022-01-07] MEDS: Amlodipine 10 MG TAB PO SCH (09:01)
[2022-01-07] MEDS: Lacosamide 150 MG in Sodium Chloride 0.9% 50 ML IVPB SCH ×2 (09:06→20:17)
[2022-01-07] MEDS: Aspirin 325 MG TAB PO SCH (10:30)
[2022-01-07 12:57] LABS: Troponin I 0.022 ng/mL (< 0.028)
[2022-01-07] MEDS: Nitroglycerin 2% Ointment 1 INCH/1 GM Packet TOP SCH ×2 (14:10→21:22)
[2022-01-07] MEDS: HumaLOG 300 UNITS/3 ML VIAL SC PRN ×2 (14:22→18:37)
[2022-01-07 15:30] LABS: Troponin I 0.021 ng/mL (< 0.028)
[2022-01-07 18:23] LABS: Troponin I 0.023 ng/mL (< 0.028)
[2022-01-07] MEDS: Rosuvastatin 20 MG TAB PO SCH (20:17)
[2022-01-07] MEDS: Melatonin 3 MG TAB PO PRN (21:26)
[2022-01-08] MEDS: HumaLOG 300 UNITS/3 ML VIAL SC PRN ×4 (00:55→18:36)
[2022-01-08] MEDS: Dextrose 5 %-0.45 % NaCl 1,000 ML IV SCH (02:02)
[2022-01-08] MEDS: Nitroglycerin 2% Ointment 1 INCH/1 GM Packet TOP SCH ×3 (05:05→21:14)
[2022-01-08] MEDS: Aspirin 325 MG TAB PO SCH (09:23)
[2022-01-08] MEDS: Lacosamide 150 MG in Sodium Chloride 0.9% 50 ML IVPB SCH ×2 (09:23→21:27)
[2022-01-08] MEDS: Amlodipine 10 MG TAB PO SCH (09:23)
[2022-01-08] MEDS: Heparin 5,000 UNITS/ML VIAL SC SCH ×2 (09:24→21:14)
[2022-01-08] MEDS: Rosuvastatin 20 MG TAB PO SCH (21:13)
[2022-01-08] MEDS: Acetaminophen 325 MG TAB PO PRN (21:14)
[2022-01-08] MEDS: Melatonin 3 MG TAB PO PRN (21:14)
[2022-01-09] MEDS: Dextrose 5 %-0.45 % NaCl 1,000 ML IV SCH (00:37)
[2022-01-09 05:32] LABS: #Basophils 0.1 thou/uL (0.0-0.2); #Eosinphils 0.4 thou/uL (0.0-0.7); #Lymphocytes 2.6 thou/uL (1.20-3.40); #Monocytes 0.6 thou/uL (0.11-0.59); #Neutrophils 4.3 thou/uL (1.40-6.50); %Eosinophils 4.4 % (0.0-10.0); %Lymphocytes 32.6 % (21.0-51.0); %Monocytes 8.1 % (0.0-10.0); %Neutrophils 53.9 % (42.0-75.0); Hemoglobin 9.3 g/dL (12.0-16.0); Mean Corpuscular HGB CONC 32.5 g/dL (32.0-36.0); Mean Corpuscular Hemoglobin 27.8 pg (27.0-31.0); Mean Corpuscular Volume 85.6 fL (78.0-98.0); Mean Platelet Volume 7.5 fL (7.4-10.4); Platelet Count 423 thou/uL (130-400); RBC Distribution Width 13.5 % (11.5-14.5); Red Blood Cell (RBC) Count 3.34 mill/uL (4.20-5.40)
[2022-01-09 05:44] LABS: Anion Gap 11 mmol/L (10-20); BUN (Urea Nitrogen) 18 mg/dL (9.8-20.1); Calc. Creatinine Clearance 20 mL/min (70-130); Calcium 8.2 mg/dL (7.8-10.44); Carbon Dioxide 20 mmol/L (23-31); Chloride 114 mmol/L (98-107); Glucose 165 mg/dL (83-110); Potassium 4.4 mmol/L (3.5-5.1); Sodium 141 mmol/L (136-145)
[2022-01-09] MEDS: Nitroglycerin 2% Ointment 1 INCH/1 GM Packet TOP SCH ×3 (06:15→21:06)
[2022-01-09] MEDS: HumaLOG 300 UNITS/3 ML VIAL SC PRN ×2 (06:15→12:58)
[2022-01-09] MEDS: Lacosamide 150 MG in Sodium Chloride 0.9% 50 ML IVPB SCH ×2 (10:06→21:06)
[2022-01-09] MEDS: Heparin 5,000 UNITS/ML VIAL SC SCH ×2 (10:07→21:06)
[2022-01-09] MEDS: Glimepiride 1 MG TAB PO SCH (10:07)
[2022-01-09] MEDS: Aspirin 325 MG TAB PO SCH (10:08)
[2022-01-09] MEDS: Amlodipine 10 MG TAB PO SCH (10:08)
[2022-01-09] MEDS: Rosuvastatin 20 MG TAB PO SCH (20:19)
[2022-01-09] MEDS: Acetaminophen 325 MG TAB PO PRN (20:19)
[2022-01-09] MEDS: Melatonin 3 MG TAB PO PRN (20:20)
[2022-01-10] MEDS: Nitroglycerin 2% Ointment 1 INCH/1 GM Packet TOP SCH ×2 (06:28→14:52)
[2022-01-10] MEDS: Glimepiride 1 MG TAB PO SCH (09:13)
[2022-01-10] MEDS: Amlodipine 10 MG TAB PO SCH (09:14)
[2022-01-10] MEDS: Aspirin 325 MG TAB PO SCH (09:15)
[2022-01-10] MEDS: Heparin 5,000 UNITS/ML VIAL SC SCH ×2 (09:15→21:23)
[2022-01-10] MEDS: Lacosamide 150 MG in Sodium Chloride 0.9% 50 ML IVPB SCH ×2 (10:01→21:24)
[2022-01-10 17:43] LABS: SARS-CoV-2 PCR by NAA Not Detected (NotDetected)
[2022-01-10] MEDS: HYDROcodone/Acetaminophen 5/325 mg Tablet PO PRN (17:45)
[2022-01-10] MEDS: HumaLOG 300 UNITS/3 ML VIAL SC PRN (18:15)
[2022-01-10] MEDS: Melatonin 3 MG TAB PO PRN (21:23)
[2022-01-10] MEDS: Acetaminophen 325 MG TAB PO PRN (21:23)
[2022-01-10] MEDS: Rosuvastatin 20 MG TAB PO SCH (21:24)
[2022-01-11] MEDS ORDERED: hydrALAZINE 25 MG TAB PO PRN (07:54)
[2022-01-11] MEDS: Glimepiride 1 MG TAB PO SCH (08:55)
[2022-01-11] MEDS: Heparin 5,000 UNITS/ML VIAL SC SCH ×2 (08:55→20:30)
[2022-01-11] MEDS: Amlodipine 10 MG TAB PO SCH (08:55)
[2022-01-11] MEDS: Aspirin 325 MG TAB PO SCH (08:56)
[2022-01-11] MEDS: HYDROcodone/Acetaminophen 5/325 mg Tablet PO PRN ×2 (09:02→17:54)
[2022-01-11] MEDS: Lacosamide 150 MG in Sodium Chloride 0.9% 50 ML IVPB SCH ×2 (10:53→20:29)
[2022-01-11] MEDS: HumaLOG 300 UNITS/3 ML VIAL SC PRN (17:12)
[2022-01-11] MEDS: Melatonin 3 MG TAB PO PRN (20:30)
[2022-01-11] MEDS: Rosuvastatin 20 MG TAB PO SCH (20:30)
[2022-01-12] MEDS: Heparin 5,000 UNITS/ML VIAL SC SCH (08:08)
[2022-01-12] MEDS: HYDROcodone/Acetaminophen 5/325 mg Tablet PO PRN (08:09)
[2022-01-12] MEDS: Aspirin 325 MG TAB PO SCH (08:09)
[2022-01-12] MEDS: Amlodipine 10 MG TAB PO SCH (08:10)
[2022-01-12] MEDS: Glimepiride 1 MG TAB PO SCH (08:10)
[2022-01-12] MEDS: Lacosamide 150 MG in Sodium Chloride 0.9% 50 ML IVPB SCH (09:36)
[2022-01-12] MEDS: HumaLOG 300 UNITS/3 ML VIAL SC PRN (10:58)
[2022-01-12 12:04] VITALS: BP 134/68; TEMP 97.8
== END 2022-01-12 13:12 | disposition home health service (06) | DRG 101 ==
LOC: ERS 11:03 → NEURO 15:05
PROVIDERS: ADMIT Internal Medicine; ATTEND Internal Medicine
PROC: 30233N1 Transfusion of Nonautologous Red Blood Cells into Peripheral Vein, Percutaneous Approach (ICD-10-PCS; principal; 2022-01-08)
DX: G40.909 Epilepsy, unspecified, not intractable, without status epilepticus (principal); E44.0 Moderate protein-calorie malnutrition; Z20.822 Contact with and (suspected) exposure to COVID-19; I50.22 Chronic systolic (congestive) heart failure; I13.0 Hypertensive heart and chronic kidney disease with heart failure and stage 1 through stage 4 chronic kidney disease, or unspecified chronic kidney disease; N17.9 Acute kidney failure, unspecified; E11.51 Type 2 diabetes mellitus with diabetic peripheral angiopathy without gangrene; N18.30 Chronic kidney disease, stage 3 unspecified; E11.22 Type 2 diabetes mellitus with diabetic chronic kidney disease; I12.9 Hypertensive chronic kidney disease with stage 1 through stage 4 chronic kidney disease, or unspecified chronic kidney disease; Z60.2 Problems related to living alone; E78.5 Hyperlipidemia, unspecified; E78.00 Pure hypercholesterolemia, unspecified; I10 Essential (primary) hypertension; F32.A Depression, unspecified; D63.1 Anemia in chronic kidney disease; G89.29 Other chronic pain; M54.9 Dorsalgia, unspecified; I08.3 Combined rheumatic disorders of mitral, aortic and tricuspid valves; E11.649 Type 2 diabetes mellitus with hypoglycemia without coma; Z68.21 Body mass index [BMI] 21.0-21.9, adult; Z90.710 Acquired absence of both cervix and uterus; Z79.899 Other long term (current) drug therapy; Z79.82 Long term (current) use of aspirin; Z79.4 Long term (current) use of insulin; Z89.512 Acquired absence of left leg below knee; Z89.511 Acquired absence of right leg below knee; Z98.49 Cataract extraction status, unspecified eye; Z90.49 Acquired absence of other specified parts of digestive tract
CPT/HCPCS: 36415; 36416; 36430; 51701; 70450; 70551; 71045; 80048; 80053; 80061; 80306; 80307; 81001; 81003; 81015; 82553; 82728; 83540; 83550; 83605; 84484; 85025; 85027; 86850; 86900; 86901; 87040; 87086; 93005; 93010; 93306; 95712; 95816; 95819; 95957; 96365; C9254; J0696; J1644; J1815; J7042; J7050; P9016; U0003; U0005

== ENCOUNTER 2022-03-13 12:13 | Inpatient (IN) | payer MEDICARE ==
[2022-03-13 13:08] LABS: #Eosinphils 0.2 thou/uL (0.0-0.7); #Lymphocytes 2.3 thou/uL (1.20-3.40); #Monocytes 0.3 thou/uL (0.11-0.59); #Neutrophils 8.8 thou/uL (1.40-6.50); %Basophils 0.1 % (0.0-1.0); %Eosinophils 1.3 % (0.0-10.0); %Lymphocytes 19.8 % (21.0-51.0); %Monocytes 2.7 % (0.0-10.0); Hemoglobin 10.8 g/dL (12.0-16.0); Mean Corpuscular HGB CONC 31.4 g/dL (32.0-36.0); Mean Corpuscular Hemoglobin 26.8 pg (27.0-31.0); Mean Corpuscular Volume 85.5 fL (78.0-98.0); Platelet Count 358 thou/uL (130-400); RBC Distribution Width 15.7 % (11.5-14.5); Red Blood Cell (RBC) Count 4.01 mill/uL (4.20-5.40); White Blood Cell (WBC) Count 11.6 thou/uL (4.8-10.8)
[2022-03-13 13:25] LABS: Bacteria/HPF None Seen HPF (None Seen); Bilirubin Negative (Negative); Blood, Urine 1+ (Negative); Clarity Clear (Clear); Glucose, Urine (Dipstick) 50 mg/dL (Negative); Ketone, Urine Negative (Negative); Leukocyte Negative Leu/uL (Negative); Nitrite Negative (Negative); Protein, Urine (Dipstick) 200 mg/dL (Neg-Trace); RBC/HPF 0-3 HPF (0-3); Specific Gravity, Urine 1.012 (1.002-1.036); Squamous Epithelial None Seen HPF (0-3); Urobilinogen Normal mg/dL (Less than 2); WBC/HPF 0-3 HPF (0-3); pH, Urine 5.5 (5.0-9.0)
[2022-03-13 13:36] LABS: ALT (SGPT) 14 U/L (8-55); AST (SGOT) 17 U/L (5-34); Albumin 3.7 g/dL (3.4-4.8); Alkaline Phosphatase 146 U/L (40-110); Anion Gap 19 mmol/L (10-20); BUN (Urea Nitrogen) 27 mg/dL (9.8-20.1); Bilirubin, Total 0.3 mg/dL (0.2-1.2); Calc. Creatinine Clearance 0 mL/min (70-130); Calcium 8.7 mg/dL (7.8-10.44); Carbon Dioxide 15 mmol/L (23-31); Chloride 112 mmol/L (98-107); Globulin 3.2 g/dL (2.4-3.5); Glucose 223 mg/dL (83-110); Potassium 4.9 mmol/L (3.5-5.1); Protein, Total 6.9 g/dL (5.8-8.1); Sodium 141 mmol/L (136-145)
[2022-03-13] MEDS ORDERED: niCARdipine 25 MG/10 ML VIAL ONE (13:48)
[2022-03-13] MEDS ORDERED: Lorazepam 2 MG/ML VIAL SLOW IVP PRN (15:04)
[2022-03-13] MEDS ORDERED: niCARdipine 25 MG in Sodium Chloride 0.9% 250 ML 250 ML IVPB PRN (15:05)
[2022-03-13] MEDS ORDERED: Ondansetron PF 4 MG/2 ML Vial IVP PRN (15:07)
[2022-03-13] MEDS ORDERED: Ondansetron ODT 4 MG TAB PO PRN (15:07)
[2022-03-13] MEDS ORDERED: Acetaminophen 325 MG TAB PO PRN (15:07)
[2022-03-13] MEDS ORDERED: Senokot S 8.6-50 MG TAB PO PRN (15:07)
[2022-03-13 15:44] LABS: Troponin I Less than 0.010 ng/mL (< 0.028)
[2022-03-13] MEDS ORDERED: Sodium Chloride 0.45% 1,000 ML IV SCH (16:00)
[2022-03-13] MEDS ORDERED: Amlodipine 10 MG TAB PO SCH (16:00)
[2022-03-13] MEDS ORDERED: Lacosamide 100 MG in Sodium Chloride 0.9% 50 ML IVPB SCH (16:30)
[2022-03-13] MEDS: Famotidine 20 MG TAB PO SCH (21:37)
[2022-03-13] MEDS: Lacosamide 50 mg Tablet PO SCH (21:37)
[2022-03-13] MEDS: Heparin 5,000 UNITS/ML VIAL SC SCH (21:38)
[2022-03-13] MEDS: Sodium Bicarbonate 50 MEQ in Sodium Chloride 0.45% 1,000 ML IV SCH (21:38)
[2022-03-14 05:13] LABS: #Eosinphils 0.1 thou/uL (0.0-0.7); #Lymphocytes 2.7 thou/uL (1.20-3.40); %Basophils 0.3 % (0.0-1.0); %Eosinophils 0.8 % (0.0-10.0); %Lymphocytes 17.1 % (21.0-51.0); %Monocytes 6.5 % (0.0-10.0); %Neutrophils 75.4 % (42.0-75.0); Hemoglobin 9.7 g/dL (12.0-16.0); Mean Corpuscular HGB CONC 32.1 g/dL (32.0-36.0); Mean Corpuscular Hemoglobin 27.7 pg (27.0-31.0); Mean Corpuscular Volume 86.5 fL (78.0-98.0); Platelet Count 321 thou/uL (130-400); RBC Distribution Width 15.7 % (11.5-14.5)
[2022-03-14 05:30] LABS: ALT (SGPT) 12 U/L (8-55); AST (SGOT) 13 U/L (5-34); Albumin 3.2 g/dL (3.4-4.8); Alkaline Phosphatase 123 U/L (40-110); Anion Gap 13 mmol/L (10-20); BUN (Urea Nitrogen) 25 mg/dL (9.8-20.1); Bilirubin, Total 0.4 mg/dL (0.2-1.2); Calc. Creatinine Clearance 20 mL/min (70-130); Calcium 8.5 mg/dL (7.8-10.44); Carbon Dioxide 20 mmol/L (23-31); Chloride 110 mmol/L (98-107); Globulin 3.2 g/dL (2.4-3.5); Glucose 188 mg/dL (83-110); Magnesium 1.3 mg/dL (1.6-2.6); Potassium 4.2 mmol/L (3.5-5.1); Protein, Total 6.4 g/dL (5.8-8.1); Sodium 139 mmol/L (136-145)
[2022-03-14] MEDS: Aspirin 325 mg Enteric Coated Tablet PO SCH (10:29)
[2022-03-14] MEDS: Amlodipine 10 MG TAB PO SCH (10:30)
[2022-03-14] MEDS: Lacosamide 50 mg Tablet PO SCH ×2 (10:32→23:21)
[2022-03-14] MEDS: Heparin 5,000 UNITS/ML VIAL SC SCH ×2 (10:32→23:19)
[2022-03-14] MEDS: Sodium Bicarbonate 50 MEQ in Sodium Chloride 0.45% 1,000 ML IV SCH (11:41)
[2022-03-14] MEDS ORDERED: Electrolyte Replacement Protocol 1 EACH FS SCH (13:00)
[2022-03-14] MEDS ORDERED: Magnesium Sulfate In Water 4 GM in Premix Bag 1 BAG IVPB SCH (13:15)
[2022-03-14] MEDS: Dexamethasone 4 mg/ml Vial SLOW IVP SCH (14:23)
[2022-03-14] MEDS ORDERED: cefTRIAXone\\ROCEPHIN 1 GM in Sodium Chloride 0.9% 100 ML IVPB SCH (15:00)
[2022-03-14] MEDS ORDERED: Lacosamide 50 mg Tablet PO SCH (15:00)
[2022-03-14] MEDS: Azithromycin 500 MG in Sodium Chloride 0.9% 250 ML 250 ML IVPB SCH (17:23)
[2022-03-14] MEDS: hydrALAZINE 20 MG/ML VIAL SLOW IVP PRN (17:24)
[2022-03-14] MEDS: Famotidine 20 MG TAB PO SCH (23:21)
[2022-03-15 05:28] LABS: Magnesium 2.6 mg/dL (1.6-2.6)
[2022-03-15] MEDS ORDERED: cloNIDine 0.1 MG TAB PO SCH (05:30)
[2022-03-15 08:31] LABS: #Lymphocytes 1.2 thou/uL (1.20-3.40); #Monocytes 0.5 thou/uL (0.11-0.59); #Neutrophils 10.4 thou/uL (1.40-6.50); %Basophils 0.3 % (0.0-1.0); %Eosinophils 0.1 % (0.0-10.0); %Lymphocytes 9.8 % (21.0-51.0); %Monocytes 4.3 % (0.0-10.0); %Neutrophils 85.4 % (42.0-75.0); Hemoglobin 10.1 g/dL (12.0-16.0); Mean Corpuscular HGB CONC 30.5 g/dL (32.0-36.0); Mean Corpuscular Hemoglobin 26.7 pg (27.0-31.0); Mean Corpuscular Volume 87.5 fL (78.0-98.0); Mean Platelet Volume 8.1 fL (7.4-10.4); Platelet Count 367 thou/uL (130-400); White Blood Cell (WBC) Count 12.2 thou/uL (4.8-10.8)
[2022-03-15] MEDS: Lacosamide 50 mg Tablet PO SCH ×2 (08:33→20:28)
[2022-03-15] MEDS: Amlodipine 10 MG TAB PO SCH (08:34)
[2022-03-15] MEDS: Aspirin 325 mg Enteric Coated Tablet PO SCH (08:34)
[2022-03-15] MEDS: Heparin 5,000 UNITS/ML VIAL SC SCH ×2 (08:35→20:52)
[2022-03-15 08:48] LABS: ALT (SGPT) 14 U/L (8-55); AST (SGOT) 15 U/L (5-34); Albumin 3.7 g/dL (3.4-4.8); Alkaline Phosphatase 136 U/L (40-110); Anion Gap 14 mmol/L (10-20); BUN (Urea Nitrogen) 29 mg/dL (9.8-20.1); Bilirubin, Total 0.4 mg/dL (0.2-1.2); CRP (Inflammatory) 3.19 mg/dL (= or < 0.5); Calc. Creatinine Clearance 16 mL/min (70-130); Calcium 8.9 mg/dL (7.8-10.44); Carbon Dioxide 22 mmol/L (23-31); Chloride 104 mmol/L (98-107); Globulin 3.7 g/dL (2.4-3.5); Glucose 510 mg/dL (83-110); Potassium 5.1 mmol/L (3.5-5.1); Protein, Total 7.4 g/dL (5.8-8.1); Sodium 135 mmol/L (136-145)
[2022-03-15] MEDS: Azithromycin 500 MG in Sodium Chloride 0.9% 250 ML 250 ML IVPB SCH (13:30)
[2022-03-15] MEDS: Dexamethasone 4 mg/ml Vial SLOW IVP SCH (13:31)
[2022-03-15] MEDS ORDERED: Dextrose 5% in Water 1,000 ML IV PRN (14:30)
[2022-03-15] MEDS ORDERED: Dextrose 50% Abboject 50 ML SYRINGE IVP PRN (14:30)
[2022-03-15] MEDS: HumaLOG 300 UNITS/3 ML VIAL SC PRN ×2 (14:53→20:46)
[2022-03-15 17:56] LABS: Glucose 190 mg/dL (83-110)
[2022-03-15] MEDS: Sodium Chloride 0.9% 1,000 ML IV SCH (20:28)
[2022-03-15] MEDS: Famotidine 20 MG TAB PO SCH (20:28)
[2022-03-15] MEDS: cefTRIAXone\\ROCEPHIN 1 GM in Sodium Chloride 0.9% 100 ML IVPB SCH (22:05)
[2022-03-16 05:24] LABS: ALT (SGPT) 12 U/L (8-55); AST (SGOT) 15 U/L (5-34); Albumin 3.5 g/dL (3.4-4.8); Alkaline Phosphatase 129 U/L (40-110); Anion Gap 15 mmol/L (10-20); BUN (Urea Nitrogen) 33 mg/dL (9.8-20.1); Bilirubin, Total 0.2 mg/dL (0.2-1.2); CRP (Inflammatory) 1.84 mg/dL (= or < 0.5); Calc. Creatinine Clearance 16 mL/min (70-130); Calcium 9.2 mg/dL (7.8-10.44); Carbon Dioxide 23 mmol/L (23-31); Chloride 110 mmol/L (98-107); Globulin 3.7 g/dL (2.4-3.5); Glucose 259 mg/dL (83-110); Potassium 4.7 mmol/L (3.5-5.1); Protein, Total 7.2 g/dL (5.8-8.1); Sodium 143 mmol/L (136-145)
[2022-03-16 05:44] LABS: Band 5 % (5-11); Hemoglobin 9.7 g/dL (12.0-16.0); Lymphocytes 11 % (21-51); MDiff Complete? YES; Mean Corpuscular HGB CONC 31.9 g/dL (32.0-36.0); Mean Corpuscular Hemoglobin 27.6 pg (27.0-31.0); Mean Corpuscular Volume 86.6 fL (78.0-98.0); Mean Platelet Volume 7.5 fL (7.4-10.4); Monocytes 2 % (0-10); Neutrophil 82 % (42-75); Platelet Count 353 thou/uL (130-400); Platelet Morphology Comment Appears Adequate; RBC Distribution Width 15.6 % (11.5-14.5); RBC Morphology Normal; Red Blood Cell (RBC) Count 3.51 mill/uL (4.20-5.40)
[2022-03-16] MEDS: HumaLOG 300 UNITS/3 ML VIAL SC PRN ×4 (06:07→21:03)
[2022-03-16] MEDS: Sodium Chloride 0.9% 1,000 ML IV SCH ×2 (06:15→21:02)
[2022-03-16] MEDS: Lacosamide 50 mg Tablet PO SCH ×2 (09:18→21:02)
[2022-03-16] MEDS: Aspirin 325 mg Enteric Coated Tablet PO SCH (09:19)
[2022-03-16] MEDS: Amlodipine 10 MG TAB PO SCH (09:19)
[2022-03-16] MEDS: Heparin 5,000 UNITS/ML VIAL SC SCH ×2 (09:20→21:03)
[2022-03-16 09:43] VITALS: BMI 20.4
[2022-03-16 12:14] LABS: Glucose 223 mg/dL (83-110)
[2022-03-16] MEDS: Azithromycin 250 MG TAB PO SCH (14:36)
[2022-03-16] MEDS: Dexamethasone 4 mg/ml Vial SLOW IVP SCH (14:37)
[2022-03-16] MEDS: Famotidine 20 MG TAB PO SCH (21:03)
[2022-03-16 21:28] LABS: Glucose 214 mg/dL (83-110)
[2022-03-16] MEDS: cefTRIAXone\\ROCEPHIN 1 GM in Sodium Chloride 0.9% 100 ML IVPB SCH (22:57)
[2022-03-17 05:13] LABS: #Lymphocytes 1.8 thou/uL (1.20-3.40); #Monocytes 0.6 thou/uL (0.11-0.59); #Neutrophils 11.6 thou/uL (1.40-6.50); %Basophils 0.1 % (0.0-1.0); %Eosinophils 0.1 % (0.0-10.0); %Monocytes 4.1 % (0.0-10.0); %Neutrophils 82.8 % (42.0-75.0); Hemoglobin 10.3 g/dL (12.0-16.0); Mean Corpuscular HGB CONC 32.3 g/dL (32.0-36.0); Mean Corpuscular Hemoglobin 27.2 pg (27.0-31.0); Mean Corpuscular Volume 84.3 fL (78.0-98.0); Mean Platelet Volume 7.4 fL (7.4-10.4); Platelet Count 390 thou/uL (130-400); RBC Distribution Width 15.9 % (11.5-14.5); Red Blood Cell (RBC) Count 3.76 mill/uL (4.20-5.40)
[2022-03-17 05:27] LABS: ALT (SGPT) 14 U/L (8-55); AST (SGOT) 14 U/L (5-34); Albumin 3.7 g/dL (3.4-4.8); Alkaline Phosphatase 133 U/L (40-110); Anion Gap 14 mmol/L (10-20); BUN (Urea Nitrogen) 28 mg/dL (9.8-20.1); Bilirubin, Total 0.2 mg/dL (0.2-1.2); Calc. Creatinine Clearance 18 mL/min (70-130); Carbon Dioxide 22 mmol/L (23-31); Chloride 108 mmol/L (98-107); Globulin 3.7 g/dL (2.4-3.5); Glucose 245 mg/dL (83-110); Potassium 4.1 mmol/L (3.5-5.1); Protein, Total 7.4 g/dL (5.8-8.1); Sodium 140 mmol/L (136-145)
[2022-03-17] MEDS: HumaLOG 300 UNITS/3 ML VIAL SC PRN ×3 (05:51→21:55)
[2022-03-17] MEDS: Amlodipine 10 MG TAB PO SCH (09:30)
[2022-03-17] MEDS: Heparin 5,000 UNITS/ML VIAL SC SCH ×2 (09:30→21:51)
[2022-03-17] MEDS: Lacosamide 50 mg Tablet PO SCH ×2 (09:30→21:53)
[2022-03-17] MEDS: Aspirin 325 mg Enteric Coated Tablet PO SCH ×2 (09:30→09:46)
[2022-03-17] MEDS: Azithromycin 250 MG TAB PO SCH (13:14)
[2022-03-17] MEDS: Dexamethasone 4 mg/ml Vial SLOW IVP SCH (13:15)
[2022-03-17] MEDS: Sodium Chloride 0.9% 1,000 ML IV SCH (13:37)
[2022-03-17] MEDS: hydrALAZINE 20 MG/ML VIAL SLOW IVP PRN (21:51)
[2022-03-17] MEDS: Famotidine 20 MG TAB PO SCH (21:53)
[2022-03-18] MEDS: Sodium Chloride 0.9% 1,000 ML IV SCH ×2 (00:04→12:01)
[2022-03-18 05:37] LABS: #Monocytes 1.1 thou/uL (0.11-0.59); #Neutrophils 10.8 thou/uL (1.40-6.50); %Eosinophils 0.1 % (0.0-10.0); %Lymphocytes 14.3 % (21.0-51.0); %Monocytes 7.9 % (0.0-10.0); %Neutrophils 77.8 % (42.0-75.0); Hemoglobin 9.8 g/dL (12.0-16.0); Mean Corpuscular HGB CONC 32.4 g/dL (32.0-36.0); Mean Corpuscular Volume 83.2 fL (78.0-98.0); Mean Platelet Volume 7.2 fL (7.4-10.4); Platelet Count 356 thou/uL (130-400); RBC Distribution Width 15.6 % (11.5-14.5); Red Blood Cell (RBC) Count 3.62 mill/uL (4.20-5.40); White Blood Cell (WBC) Count 13.8 thou/uL (4.8-10.8)
[2022-03-18 06:05] LABS: ALT (SGPT) 11 U/L (8-55); AST (SGOT) 10 U/L (5-34); Albumin 3.2 g/dL (3.4-4.8); Alkaline Phosphatase 118 U/L (40-110); Anion Gap 12 mmol/L (10-20); BUN (Urea Nitrogen) 27 mg/dL (9.8-20.1); Bilirubin, Total 0.3 mg/dL (0.2-1.2); Calc. Creatinine Clearance 19 mL/min (70-130); Calcium 8.5 mg/dL (7.8-10.44); Carbon Dioxide 23 mmol/L (23-31); Chloride 108 mmol/L (98-107); Globulin 3.2 g/dL (2.4-3.5); Glucose 228 mg/dL (83-110); Potassium 3.5 mmol/L (3.5-5.1); Protein, Total 6.4 g/dL (5.8-8.1); Sodium 139 mmol/L (136-145)
[2022-03-18] MEDS: hydrALAZINE 20 MG/ML VIAL SLOW IVP PRN (06:07)
[2022-03-18] MEDS: HumaLOG 300 UNITS/3 ML VIAL SC PRN ×3 (06:38→17:47)
[2022-03-18] MEDS ORDERED: Potassium Chloride 20 MEQ TAB PO SCH (08:00)
[2022-03-18] MEDS: Lacosamide 50 mg Tablet PO SCH ×2 (08:26→20:43)
[2022-03-18] MEDS: Amlodipine 10 MG TAB PO SCH (08:26)
[2022-03-18] MEDS: Aspirin 325 mg Enteric Coated Tablet PO SCH (08:27)
[2022-03-18] MEDS: Heparin 5,000 UNITS/ML VIAL SC SCH ×2 (08:27→20:43)
[2022-03-18 09:21] LABS: Glucose 72 mg/dL (83-110)
[2022-03-18] MEDS: Famotidine 20 MG TAB PO SCH (20:44)
[2022-03-19] MEDS: Sodium Chloride 0.9% 1,000 ML IV SCH (04:02)
[2022-03-19 05:43] LABS: #Basophils 0.1 thou/uL (0.0-0.2); #Eosinphils 0.1 thou/uL (0.0-0.7); #Monocytes 1.1 thou/uL (0.11-0.59); #Neutrophils 9.6 thou/uL (1.40-6.50); %Basophils 0.9 % (0.0-1.0); %Eosinophils 0.8 % (0.0-10.0); %Lymphocytes 21.7 % (21.0-51.0); %Monocytes 7.7 % (0.0-10.0); %Neutrophils 68.8 % (42.0-75.0); Mean Corpuscular HGB CONC 30.4 g/dL (32.0-36.0); Mean Corpuscular Hemoglobin 26.7 pg (27.0-31.0); Mean Corpuscular Volume 87.9 fL (78.0-98.0); Mean Platelet Volume 7.4 fL (7.4-10.4); Platelet Count 314 thou/uL (130-400); RBC Distribution Width 15.8 % (11.5-14.5); Red Blood Cell (RBC) Count 3.73 mill/uL (4.20-5.40)
[2022-03-19 06:00] LABS: Anion Gap 11 mmol/L (10-20); BUN (Urea Nitrogen) 21 mg/dL (9.8-20.1); Calc. Creatinine Clearance 21 mL/min (70-130); Carbon Dioxide 21 mmol/L (23-31); Chloride 112 mmol/L (98-107); Glucose 157 mg/dL (83-110); Potassium 3.8 mmol/L (3.5-5.1); Sodium 140 mmol/L (136-145)
[2022-03-19] MEDS: HumaLOG 300 UNITS/3 ML VIAL SC PRN (06:27)
[2022-03-19] MEDS: Lacosamide 50 mg Tablet PO SCH (09:11)
[2022-03-19] MEDS: Amlodipine 10 MG TAB PO SCH (09:11)
[2022-03-19] MEDS: Aspirin 325 mg Enteric Coated Tablet PO SCH (09:12)
[2022-03-19] MEDS: Heparin 5,000 UNITS/ML VIAL SC SCH (09:18)
[2022-03-19] MEDS ORDERED: Senokot S 8.6-50 MG TAB PO PRN (11:00)
[2022-03-19 16:04] VITALS: BP 158/88; TEMP 98.1
== END 2022-03-19 19:59 | disposition home health service (06) | DRG 100 ==
LOC: ERS 12:13 → NEURO 16:57
PROVIDERS: ADMIT Family Medicine; ATTEND Family Medicine
PROC: 8E0ZXY6 Isolation (ICD-10-PCS; principal; 2022-03-13)
DX: G40.909 Epilepsy, unspecified, not intractable, without status epilepticus (principal); U07.1 COVID-19; G93.41 Metabolic encephalopathy; N17.9 Acute kidney failure, unspecified; N18.4 Chronic kidney disease, stage 4 (severe); E87.2 Acidosis; I51.81 Takotsubo syndrome; E11.22 Type 2 diabetes mellitus with diabetic chronic kidney disease; E78.5 Hyperlipidemia, unspecified; I12.9 Hypertensive chronic kidney disease with stage 1 through stage 4 chronic kidney disease, or unspecified chronic kidney disease; E11.51 Type 2 diabetes mellitus with diabetic peripheral angiopathy without gangrene; F41.9 Anxiety disorder, unspecified; D63.1 Anemia in chronic kidney disease; M54.9 Dorsalgia, unspecified; G89.29 Other chronic pain; Z91.19 Patient's noncompliance with other medical treatment and regimen; Z79.899 Other long term (current) drug therapy; Z79.4 Long term (current) use of insulin; Z79.82 Long term (current) use of aspirin; Z79.84 Long term (current) use of oral hypoglycemic drugs; Z89.512 Acquired absence of left leg below knee; Z89.511 Acquired absence of right leg below knee; Z98.49 Cataract extraction status, unspecified eye; Z90.710 Acquired absence of both cervix and uterus; Z82.49 Family history of ischemic heart disease and other diseases of the circulatory system; Z90.49 Acquired absence of other specified parts of digestive tract; Z83.3 Family history of diabetes mellitus
CPT/HCPCS: 36415; 36416; 70450; 71045; 80053; 80339; 81003; 81015; 82947; 83735; 84145; 84484; 85025; 86140; 87324; 87449; 93005; 95712; 95819; 95957; C9254; G0480; J0360; J0456; J0696; J1100; J1644; J1815; J3475; J3490; J7050; U0003; U0005

== ENCOUNTER 2022-05-22 20:11 | Emergency (ER) | payer MEDICARE, OTHER ==
[2022-05-22 21:34] LABS: #Eosinphils 0.3 thou/uL (0.0-0.7); #Lymphocytes 3.3 thou/uL (1.20-3.40); #Monocytes 0.8 thou/uL (0.11-0.59); #Neutrophils 6.3 thou/uL (1.40-6.50); %Basophils 0.3 % (0.0-1.0); %Eosinophils 2.6 % (0.0-10.0); %Lymphocytes 30.6 % (21.0-51.0); %Monocytes 7.6 % (0.0-10.0); %Neutrophils 58.8 % (42.0-75.0); Hemoglobin 9.7 g/dL (12.0-16.0); Mean Corpuscular HGB CONC 33.5 g/dL (32.0-36.0); Mean Corpuscular Hemoglobin 29.4 pg (27.0-31.0); Mean Corpuscular Volume 87.8 fL (78.0-98.0); Mean Platelet Volume 7.3 fL (7.4-10.4); Platelet Count 314 thou/uL (130-400); RBC Distribution Width 13.6 % (11.5-14.5); Red Blood Cell (RBC) Count 3.28 mill/uL (4.20-5.40); White Blood Cell (WBC) Count 10.6 thou/uL (4.8-10.8)
[2022-05-22 21:53] LABS: ALT (SGPT) 7 U/L (8-55); AST (SGOT) 15 U/L (5-34); Alkaline Phosphatase 137 U/L (40-110); Anion Gap 16 mmol/L (10-20); BUN (Urea Nitrogen) 28 mg/dL (9.8-20.1); Bilirubin, Total 0.3 mg/dL (0.2-1.2); Calc. Creatinine Clearance 0 mL/min (70-130); Calcium 8.6 mg/dL (7.8-10.44); Carbon Dioxide 21 mmol/L (23-31); Chloride 106 mmol/L (98-107); Estimated GFR 23; Globulin 3.1 g/dL (2.4-3.5); Glucose 173 mg/dL (83-110); Potassium 3.6 mmol/L (3.5-5.1); Protein, Total 7.1 g/dL (5.8-8.1); Sodium 139 mmol/L (136-145)
[2022-05-22] MEDS ORDERED: Ondansetron PF 4 MG/2 ML Vial ONE (22:08)
[2022-05-22 22:16] LABS: CKMB 1.6 ng/mL (0-6.6)
[2022-05-22] MEDS ORDERED: Nitroglycerin 0.4 MG TAB 1 EACH ONE (23:12)
== END 2022-05-23 00:50 | disposition home or self-care (01) ==
LOC: ERS 20:11
DX: R11.2 Nausea with vomiting, unspecified (principal); R19.7 Diarrhea, unspecified; E78.00 Pure hypercholesterolemia, unspecified; E78.5 Hyperlipidemia, unspecified; E11.9 Type 2 diabetes mellitus without complications; I10 Essential (primary) hypertension; Z87.891 Personal history of nicotine dependence; Z79.4 Long term (current) use of insulin
CPT/HCPCS: 36415; 70450; 71045; 80053; 82553; 83605; 83690; 84484; 85025; 93005; J2405

== ENCOUNTER 2022-07-05 13:51 | Emergency (ER) | payer OTHER, MEDICARE | END 2022-07-05 17:36 | disposition home or self-care (01) | LOC: ERS 13:51 | DX: S06.9X9A Unspecified intracranial injury with loss of consciousness of unspecified duration, initial encounter (principal); S13.4XXA Sprain of ligaments of cervical spine, initial encounter; E78.00 Pure hypercholesterolemia, unspecified; I10 Essential (primary) hypertension; E11.9 Type 2 diabetes mellitus without complications; W18.12XA Fall from or off toilet with subsequent striking against object, initial encounter; Y92.512 Supermarket, store or market as the place of occurrence of the external cause; Z79.4 Long term (current) use of insulin; Z87.891 Personal history of nicotine dependence | CPT/HCPCS: 70450; 72125; 93005 ==

== ENCOUNTER 2022-07-26 14:04 | Inpatient (IN) | payer MEDICARE, OTHER ==
[2022-07-26 14:22] LABS: Actual Bicarbonate (HCO3a) 12.5 mEq/L (22-28); Analyzer IN Cardio ER; Base Excess (BEa) -15.6 mEq/L (-2.0 to +3.0); CO2 Tension 37.9 mmHg (35.0-45.0); Calcium, Ionized (arterial) 1.14 mmol/L (1.12-1.30); Carboxyhemoglobin (COHb) 0.3 gm% (0.0-3.0); Hemoglobin (Hb) 11.1 g/dL (12.0-16.0); O2 Tension (PaO2), arterial 110.3 mmHg (> 70.0); Potassium - ABG Lab 3.77 mmol/L (3.70-5.30)
[2022-07-26 14:23] LABS: Puncture Site RRA; pH, Arterial 7.14 (7.35-7.45)
[2022-07-26 14:24] LABS: ALV-art Gradient 41.965 mmHg (0-20)
[2022-07-26 14:26] LABS: Hemoglobin 10.8 g/dL (12.0-16.0); Mean Corpuscular HGB CONC 32.3 g/dL (32.0-36.0); Mean Corpuscular Hemoglobin 28.9 pg (27.0-31.0); Mean Corpuscular Volume 89.2 fL (78.0-98.0); Mean Platelet Volume 7.8 fL (7.4-10.4); Platelet Count 333 thou/uL (130-400); RBC Distribution Width 12.5 % (11.5-14.5); Red Blood Cell (RBC) Count 3.74 mill/uL (4.20-5.40); White Blood Cell (WBC) Count 14.9 thou/uL (4.8-10.8)
[2022-07-26 14:36] LABS: INR-International Normal Ratio 1.1; Prothrombin Time 14.4 sec (12.0-14.7)
[2022-07-26 14:37] LABS: PTT 28.7 sec (22.9-36.1)
[2022-07-26 14:42] LABS: ALT (SGPT) 8 U/L (8-55); AST (SGOT) 13 U/L (5-34); Albumin 4.2 g/dL (3.4-4.8); Alkaline Phosphatase 195 U/L (40-110); Anion Gap 23 mmol/L (10-20); BUN (Urea Nitrogen) 25 mg/dL (9.8-20.1); Bilirubin, Total 0.3 mg/dL (0.2-1.2); Calc. Creatinine Clearance 0 mL/min (70-130); Calcium 8.8 mg/dL (7.8-10.44); Carbon Dioxide 15 mmol/L (23-31); Chloride 105 mmol/L (98-107); Estimated GFR 17; Globulin 3.7 g/dL (2.4-3.5); Glucose 520 mg/dL (83-110); Potassium 3.6 mmol/L (3.5-5.1); Protein, Total 7.9 g/dL (5.8-8.1); Sodium 139 mmol/L (136-145)
[2022-07-26 14:49] LABS: Acetaminophen Less than 10.0 mcg/mL (10.0-30.0); Alcohol Less than 10 mg/dL (Less than 10); Salicylate Less than 8.0 mg/dL (15.0-30.0)
[2022-07-26 14:53] LABS: Eosinophils 1 % (0-10); Lymphocytes 46 % (21-51); MDiff Complete? YES; Monocytes 6 % (0-10); Neutrophil 41 % (42-75); Ovalocytes SLIGHT = 2-5 cells (100X) (0-1/hpf); Platelet Morphology Comment Appears Adequate; Polychromasia SLIGHT = 2-3 cells (100X) (0-2/hpf); Reactive Lymphocytes 6 % (0-10)
[2022-07-26] MEDS ORDERED: INSULIN REGULAR IN 0.9 % NACL 100 UNIT/100 ML BAG ONE (15:06)
[2022-07-26] MEDS ORDERED: Acetaminophen 650 MG Suppository PR PRN (15:33)
[2022-07-26] MEDS ORDERED: Dextrose 5 %-0.45 % NaCl 1,000 ML IV PRN (15:33)
[2022-07-26] MEDS ORDERED: Sodium Chloride 0.9% 1,000 ML IV PRN ×4 (15:33)
[2022-07-26] MEDS ORDERED: Ondansetron PF 4 MG/2 ML Vial IVP PRN (15:33)
[2022-07-26] MEDS ORDERED: NS 0.9% w/ 20 MEQ KCL 1,000 ML IV PRN ×2 (15:33)
[2022-07-26] MEDS ORDERED: Enoxaparin Sodium 30 MG/0.3 ML SYRINGE SC SCH (15:45)
[2022-07-26] MEDS ORDERED: HUMULIN R 100 UNITS in Sodium Chloride 0.9% 100 ML IVPB SCH (15:45)
[2022-07-26 15:53] VITALS: BMI 20.8
[2022-07-26] MEDS ORDERED: niCARdipine 25 MG in Sodium Chloride 0.9% 250 ML 250 ML IVPB SCH (16:15)
[2022-07-26] MEDS ORDERED: Lacosamide 150 MG in Sodium Chloride 0.9% 50 ML IVPB SCH (17:00)
[2022-07-26 17:01] LABS: Anion Gap 16 mmol/L (10-20); BUN (Urea Nitrogen) 26 mg/dL (9.8-20.1); Calc. Creatinine Clearance 15 mL/min (70-130); Calcium 8.5 mg/dL (7.8-10.44); Carbon Dioxide 18 mmol/L (23-31); Chloride 109 mmol/L (98-107); Estimated GFR 19; Glucose 467 mg/dL (83-110); Potassium 3.7 mmol/L (3.5-5.1); Sodium 139 mmol/L (136-145)
[2022-07-26 17:03] LABS: Magnesium 1.2 mg/dL (1.6-2.6)
[2022-07-26] MEDS ORDERED: Enoxaparin Sodium 40 MG/0.4 ML SYRINGE ONE (17:04)
[2022-07-26 18:30] LABS: Lactic Acid 2.4 mmol/L (0.5-2.2)
[2022-07-26] MEDS ORDERED: Magnesium 2 GM/50 ML(in water) 2 GM in Premix Bag 1 BAG IVPB SCH (20:00)
[2022-07-26] MEDS: D5 1/2 NS w/20 mEq KCL 1,000 ML IV PRN (20:47)
[2022-07-26] MEDS: Lacosamide 150 MG in Sodium Chloride 0.9% 50 ML IVPB SCH (21:03)
[2022-07-26 21:41] LABS: Anion Gap 14 mmol/L (10-20); BUN (Urea Nitrogen) 23 mg/dL (9.8-20.1); Calc. Creatinine Clearance 18 mL/min (70-130); Carbon Dioxide 16 mmol/L (23-31); Chloride 114 mmol/L (98-107); Estimated GFR 23; Glucose 169 mg/dL (83-110); Potassium 3.4 mmol/L (3.5-5.1); Sodium 141 mmol/L (136-145)
[2022-07-27 00:37] LABS: Anion Gap 12 mmol/L (10-20); BUN (Urea Nitrogen) 22 mg/dL (9.8-20.1); Calc. Creatinine Clearance 18 mL/min (70-130); Calcium 7.9 mg/dL (7.8-10.44); Carbon Dioxide 18 mmol/L (23-31); Chloride 115 mmol/L (98-107); Estimated GFR 24; Glucose 171 mg/dL (83-110); Potassium 3.4 mmol/L (3.5-5.1); Sodium 142 mmol/L (136-145)
[2022-07-27] MEDS: D5 1/2 NS w/20 mEq KCL 1,000 ML IV PRN ×2 (00:38→05:01)
[2022-07-27 02:17] LABS: Bacteria/HPF None Seen HPF (None Seen); Bilirubin Negative (Negative); Blood, Urine 1+ (Negative); Clarity Clear (Clear); Glucose, Urine (Dipstick) Greater than 1000 mg/dL (Negative); Ketone, Urine Negative (Negative); Leukocyte Negative Leu/uL (Negative); Nitrite Negative (Negative); Protein, Urine (Dipstick) 300 mg/dL (Neg-Trace); RBC/HPF 0-3 HPF (0-3); Specific Gravity, Urine 1.009 (1.002-1.036); Squamous Epithelial None Seen HPF (0-3); Urobilinogen Normal mg/dL (Less than 2); WBC/HPF 0-3 HPF (0-3)
[2022-07-27] MEDS ORDERED: Dextrose 50% Abboject 50 ML SYRINGE SLOW IVP PRN ×2 (03:35→14:10)
[2022-07-27] MEDS ORDERED: Insulin Glargine 30 UNITS/0.3 ML VIAL SC SCH ×2 (04:00→21:00)
[2022-07-27 04:21] LABS: #Eosinphils 0.1 thou/uL (0.0-0.7); #Lymphocytes 3.1 thou/uL (1.20-3.40); #Monocytes 1.4 thou/uL (0.11-0.59); #Neutrophils 11.6 thou/uL (1.40-6.50); %Basophils 0.2 % (0.0-1.0); %Eosinophils 0.3 % (0.0-10.0); %Monocytes 8.5 % (0.0-10.0); Hemoglobin 9.1 g/dL (12.0-16.0); Mean Corpuscular HGB CONC 32.1 g/dL (32.0-36.0); Mean Corpuscular Hemoglobin 28.5 pg (27.0-31.0); Mean Corpuscular Volume 88.7 fL (78.0-98.0); Mean Platelet Volume 7.7 fL (7.4-10.4); Platelet Count 278 thou/uL (130-400); RBC Distribution Width 12.4 % (11.5-14.5); White Blood Cell (WBC) Count 16.1 thou/uL (4.8-10.8)
[2022-07-27 04:40] LABS: Anion Gap 11 mmol/L (10-20); BUN (Urea Nitrogen) 20 mg/dL (9.8-20.1); Calc. Creatinine Clearance 20 mL/min (70-130); Calcium 7.9 mg/dL (7.8-10.44); Carbon Dioxide 19 mmol/L (23-31); Chloride 114 mmol/L (98-107); Estimated GFR 26; Glucose 133 mg/dL (83-110); Magnesium 1.8 mg/dL (1.6-2.6); Potassium 3.3 mmol/L (3.5-5.1); Sodium 141 mmol/L (136-145)
[2022-07-27] MEDS ORDERED: FLU VACC QS2022-23(65YR UP)/PF 240 MCG/0.7 ML SYRINGE IM ONE (09:00)
[2022-07-27] MEDS: Electrolyte Replacement Protocol IVPB SCH (09:23)
[2022-07-27] MEDS: Enoxaparin Sodium 30 MG/0.3 ML SYRINGE SC SCH (09:28)
[2022-07-27] MEDS: hydrALAZINE 20 MG/ML VIAL SLOW IVP PRN ×2 (09:31→16:39)
[2022-07-27] MEDS: Lacosamide 150 MG in Sodium Chloride 0.9% 50 ML IVPB SCH ×2 (09:45→21:18)
[2022-07-27 10:14] LABS: Actual Bicarbonate (HCO3v) 16 mEq/L (22-28); Base Excess -8.1 mEq/L (-2.0 to +3.0); Calcium, Ionized (venous) 1.06 mmol/L (1.16-1.32); Chloride (VBG) 112 mmol/L (98-106); Hemoglobin (Hb) 9.7 g/dL (11.7-16.1); Potassium (VBG) 3.59 mmol/L (3.70-5.30); Sodium 137.8 mmol/L (133-146); pH (venous) 7.38 (7.32-7.43)
[2022-07-27 10:34] LABS: Anion Gap 13 mmol/L (10-20); BUN (Urea Nitrogen) 17 mg/dL (9.8-20.1); Calc. Creatinine Clearance 20 mL/min (70-130); Calcium 7.9 mg/dL (7.8-10.44); Carbon Dioxide 16 mmol/L (23-31); Chloride 113 mmol/L (98-107); Estimated GFR 27; Glucose 225 mg/dL (83-110); Potassium 3.6 mmol/L (3.5-5.1); Sodium 138 mmol/L (136-145)
[2022-07-27] MEDS ORDERED: Magnesium 2 GM/50 ML(in water) 2 GM in Premix Bag 1 BAG IVPB SCH (11:00)
[2022-07-27] MEDS: Potassium Chloride 20 MEQ in Premix Bag 1 BAG IVPB SCH ×2 (12:05→12:52)
[2022-07-27] MEDS ORDERED: Dextrose 5% in Water 1,000 ML IV PRN (14:10)
[2022-07-27] MEDS ORDERED: HumaLOG 300 UNITS/3 ML VIAL SC PRN (14:10)
[2022-07-27] MEDS ORDERED: Amlodipine 5 MG TAB PO SCH (14:45)
[2022-07-27] MEDS: Sodium Chloride 0.9% 1,000 ML IV SCH (16:02)
[2022-07-27] MEDS: HumaLOG 300 UNITS/3 ML VIAL SC PRN (16:39)
[2022-07-27] MEDS ORDERED: Rosuvastatin 20 MG TAB PO SCH (21:00)
[2022-07-27] MEDS: Rosuvastatin 10 MG TAB PO SCH (21:18)
[2022-07-28] MEDS: hydrALAZINE 20 MG/ML VIAL SLOW IVP PRN (06:09)
[2022-07-28 06:56] LABS: Hemoglobin A1c 9.2 % (4.0-6.0); Reticulocyte Count 2.4 % (0.5-1.5)
[2022-07-28 06:58] LABS: #Basophils 0.1 thou/uL (0.0-0.2); #Eosinphils 0.2 thou/uL (0.0-0.7); #Lymphocytes 2.4 thou/uL (1.20-3.40); #Monocytes 0.8 thou/uL (0.11-0.59); #Neutrophils 11.4 thou/uL (1.40-6.50); %Basophils 0.4 % (0.0-1.0); %Eosinophils 1.6 % (0.0-10.0); %Monocytes 5.4 % (0.0-10.0); %Neutrophils 76.5 % (42.0-75.0); Mean Corpuscular HGB CONC 31.7 g/dL (32.0-36.0); Mean Corpuscular Volume 88.2 fL (78.0-98.0); Mean Platelet Volume 7.8 fL (7.4-10.4); Platelet Count 344 thou/uL (130-400); RBC Distribution Width 12.8 % (11.5-14.5); Red Blood Cell (RBC) Count 3.57 mill/uL (4.20-5.40); White Blood Cell (WBC) Count 14.9 thou/uL (4.8-10.8)
[2022-07-28 07:18] LABS: Iron 75 ug/dL (50-170); Iron Binding Capacity, Total 241 mcg/dL (265-497)
[2022-07-28 07:19] LABS: Anion Gap 14 mmol/L (10-20); BUN (Urea Nitrogen) 12 mg/dL (9.8-20.1); Calc. Creatinine Clearance 18 mL/min (70-130); Calcium 8.9 mg/dL (7.8-10.44); Carbon Dioxide 16 mmol/L (23-31); Chloride 112 mmol/L (98-107); Estimated GFR 26; Glucose 225 mg/dL (83-110); Iron 74 ug/dL (50-170); Iron Binding Capacity, Total 243 mcg/dL (265-497); Magnesium 1.7 mg/dL (1.6-2.6); Potassium 4.3 mmol/L (3.5-5.1); Sodium 138 mmol/L (136-145)
[2022-07-28] MEDS: Aspirin 325 MG TAB PO SCH (09:00)
[2022-07-28] MEDS: Amlodipine 10 MG TAB PO SCH (09:00)
[2022-07-28] MEDS ORDERED: Insulin Glargine 30 UNITS/0.3 ML VIAL SC SCH (09:00)
[2022-07-28] MEDS ORDERED: Magnesium 2 GM/50 ML(in water) 2 GM in Premix Bag 1 BAG IVPB SCH (09:00)
[2022-07-28] MEDS: Enoxaparin Sodium 30 MG/0.3 ML SYRINGE SC SCH (09:00)
[2022-07-28] MEDS: Electrolyte Replacement Protocol IVPB SCH (09:01)
[2022-07-28] MEDS: Insulin Glargine 30 UNITS/0.3 ML VIAL SC SCH (09:01)
[2022-07-28] MEDS: HumaLOG 300 UNITS/3 ML VIAL SC PRN ×2 (12:06→17:36)
[2022-07-28] MEDS: Lacosamide 150 MG in Sodium Chloride 0.9% 50 ML IVPB SCH ×2 (12:09→21:18)
[2022-07-28] MEDS ORDERED: Haloperidol Lactate 5 MG/ML VIAL SLOW IVP SCH (13:30)
[2022-07-28] MEDS: Sodium Chloride 0.9% 1,000 ML IV SCH (15:38)
[2022-07-28] MEDS: Rosuvastatin 10 MG TAB PO SCH (21:18)
[2022-07-29 05:35] LABS: #Basophils 0.1 thou/uL (0.0-0.2); #Eosinphils 0.2 thou/uL (0.0-0.7); #Lymphocytes 2.6 thou/uL (1.20-3.40); #Monocytes 0.9 thou/uL (0.11-0.59); #Neutrophils 7.1 thou/uL (1.40-6.50); %Basophils 0.7 % (0.0-1.0); %Eosinophils 2.2 % (0.0-10.0); %Monocytes 8.2 % (0.0-10.0); %Neutrophils 64.8 % (42.0-75.0); Hemoglobin 9.7 g/dL (12.0-16.0); Mean Corpuscular HGB CONC 32.6 g/dL (32.0-36.0); Mean Corpuscular Volume 89.1 fL (78.0-98.0); Mean Platelet Volume 7.5 fL (7.4-10.4); Platelet Count 297 thou/uL (130-400); RBC Distribution Width 12.7 % (11.5-14.5); Red Blood Cell (RBC) Count 3.33 mill/uL (4.20-5.40)
[2022-07-29 05:45] LABS: Anion Gap 11 mmol/L (10-20); BUN (Urea Nitrogen) 13 mg/dL (9.8-20.1); Calc. Creatinine Clearance 17 mL/min (70-130); Calcium 8.5 mg/dL (7.8-10.44); Carbon Dioxide 21 mmol/L (23-31); Chloride 113 mmol/L (98-107); Estimated GFR 25; Glucose 105 mg/dL (83-110); Magnesium 2.4 mg/dL (1.6-2.6); Potassium 3.8 mmol/L (3.5-5.1); Sodium 141 mmol/L (136-145)
[2022-07-29] MEDS: Enoxaparin Sodium 30 MG/0.3 ML SYRINGE SC SCH (09:13)
[2022-07-29] MEDS: Amlodipine 10 MG TAB PO SCH (09:14)
[2022-07-29] MEDS: Aspirin 325 MG TAB PO SCH (09:14)
[2022-07-29] MEDS: Insulin Glargine 30 UNITS/0.3 ML VIAL SC SCH (09:14)
[2022-07-29] MEDS: Electrolyte Replacement Protocol IVPB SCH (09:47)
[2022-07-29] MEDS: Lacosamide 150 MG in Sodium Chloride 0.9% 50 ML IVPB SCH ×2 (09:48→20:45)
[2022-07-29] MEDS: HumaLOG 300 UNITS/3 ML VIAL SC PRN (12:48)
[2022-07-29] MEDS: Rosuvastatin 10 MG TAB PO SCH (20:46)
[2022-07-30 05:28] LABS: #Basophils 0.1 thou/uL (0.0-0.2); #Eosinphils 0.3 thou/uL (0.0-0.7); #Lymphocytes 3.1 thou/uL (1.20-3.40); #Neutrophils 6.5 thou/uL (1.40-6.50); %Basophils 0.6 % (0.0-1.0); %Eosinophils 2.4 % (0.0-10.0); %Lymphocytes 28.4 % (21.0-51.0); %Neutrophils 59.6 % (42.0-75.0); Hemoglobin 8.4 g/dL (12.0-16.0); Mean Corpuscular HGB CONC 31.7 g/dL (32.0-36.0); Mean Corpuscular Hemoglobin 28.4 pg (27.0-31.0); Mean Corpuscular Volume 89.5 fL (78.0-98.0); Mean Platelet Volume 7.4 fL (7.4-10.4); Platelet Count 300 thou/uL (130-400); RBC Distribution Width 12.6 % (11.5-14.5); Red Blood Cell (RBC) Count 2.96 mill/uL (4.20-5.40); White Blood Cell (WBC) Count 10.8 thou/uL (4.8-10.8)
[2022-07-30 06:08] LABS: Anion Gap 11 mmol/L (10-20); BUN (Urea Nitrogen) 22 mg/dL (9.8-20.1); Calc. Creatinine Clearance 15 mL/min (70-130); Calcium 8.3 mg/dL (7.8-10.44); Carbon Dioxide 22 mmol/L (23-31); Chloride 111 mmol/L (98-107); Estimated GFR 21; Glucose 88 mg/dL (83-110); Magnesium 1.9 mg/dL (1.6-2.6); Sodium 140 mmol/L (136-145)
[2022-07-30] MEDS ORDERED: Magnesium 2 GM/50 ML(in water) 2 GM in Premix Bag 1 BAG IVPB SCH (08:00)
[2022-07-30] MEDS: Enoxaparin Sodium 30 MG/0.3 ML SYRINGE SC SCH (09:25)
[2022-07-30] MEDS: Insulin Glargine 30 UNITS/0.3 ML VIAL SC SCH (09:30)
[2022-07-30] MEDS: Amlodipine 10 MG TAB PO SCH (09:30)
[2022-07-30] MEDS: Aspirin 325 MG TAB PO SCH (09:30)
[2022-07-30] MEDS: Electrolyte Replacement Protocol IVPB SCH (09:31)
[2022-07-30] MEDS: Lacosamide 50 mg Tablet PO SCH ×2 (09:32→20:58)
[2022-07-30] MEDS: HumaLOG 300 UNITS/3 ML VIAL SC PRN (13:20)
[2022-07-30] MEDS: Rosuvastatin 10 MG TAB PO SCH (20:57)
[2022-07-31 05:18] LABS: #Basophils 0.1 thou/uL (0.0-0.2); #Eosinphils 0.1 thou/uL (0.0-0.7); #Lymphocytes 2.7 thou/uL (1.20-3.40); #Neutrophils 7.8 thou/uL (1.40-6.50); %Basophils 0.5 % (0.0-1.0); %Eosinophils 1.3 % (0.0-10.0); %Lymphocytes 23.2 % (21.0-51.0); %Monocytes 8.6 % (0.0-10.0); %Neutrophils 66.5 % (42.0-75.0); Hemoglobin 8.6 g/dL (12.0-16.0); Mean Corpuscular HGB CONC 32.1 g/dL (32.0-36.0); Mean Corpuscular Hemoglobin 28.4 pg (27.0-31.0); Mean Corpuscular Volume 88.5 fL (78.0-98.0); Mean Platelet Volume 7.5 fL (7.4-10.4); Platelet Count 299 thou/uL (130-400); RBC Distribution Width 12.5 % (11.5-14.5); Red Blood Cell (RBC) Count 3.01 mill/uL (4.20-5.40); White Blood Cell (WBC) Count 11.7 thou/uL (4.8-10.8)
[2022-07-31 05:43] LABS: Anion Gap 11 mmol/L (10-20); BUN (Urea Nitrogen) 25 mg/dL (9.8-20.1); Calc. Creatinine Clearance 15 mL/min (70-130); Calcium 8.4 mg/dL (7.8-10.44); Carbon Dioxide 22 mmol/L (23-31); Chloride 108 mmol/L (98-107); Estimated GFR 21; Glucose 66 mg/dL (83-110); Magnesium 2.2 mg/dL (1.6-2.6); Sodium 137 mmol/L (136-145)
[2022-07-31] MEDS: Amlodipine 10 MG TAB PO SCH (09:07)
[2022-07-31] MEDS: Lacosamide 50 mg Tablet PO SCH (09:07)
[2022-07-31] MEDS: Aspirin 325 MG TAB PO SCH (09:07)
[2022-07-31] MEDS: Insulin Glargine 30 UNITS/0.3 ML VIAL SC SCH (09:07)
[2022-07-31] MEDS: Electrolyte Replacement Protocol IVPB SCH (09:08)
[2022-07-31] MEDS: Enoxaparin Sodium 30 MG/0.3 ML SYRINGE SC SCH (09:08)
[2022-07-31] MEDS: HumaLOG 300 UNITS/3 ML VIAL SC PRN (12:18)
[2022-07-31 17:18] VITALS: BP 150/72; TEMP 97.9
== END 2022-07-31 19:35 | DRG 637 ==
LOC: ERS 14:04 → ERHOLD 15:17 → CCU 19:31 → NEURO 07-28 18:27
PROVIDERS: ADMIT Internal Medicine; ATTEND Internal Medicine
DX: E11.00 Type 2 diabetes mellitus with hyperosmolarity without nonketotic hyperglycemic-hyperosmolar coma (NKHHC) (principal); G93.41 Metabolic encephalopathy; N17.9 Acute kidney failure, unspecified; N18.4 Chronic kidney disease, stage 4 (severe); I16.0 Hypertensive urgency; I12.9 Hypertensive chronic kidney disease with stage 1 through stage 4 chronic kidney disease, or unspecified chronic kidney disease; G40.909 Epilepsy, unspecified, not intractable, without status epilepticus; E11.22 Type 2 diabetes mellitus with diabetic chronic kidney disease; E11.51 Type 2 diabetes mellitus with diabetic peripheral angiopathy without gangrene; Z96.653 Presence of artificial knee joint, bilateral; Z20.822 Contact with and (suspected) exposure to COVID-19; E78.00 Pure hypercholesterolemia, unspecified; R33.9 Retention of urine, unspecified; E87.6 Hypokalemia; I25.10 Atherosclerotic heart disease of native coronary artery without angina pectoris; F32.A Depression, unspecified; Z88.8 Allergy status to other drugs, medicaments and biological substances; Z79.4 Long term (current) use of insulin; Z79.899 Other long term (current) drug therapy; Z79.82 Long term (current) use of aspirin; Z79.84 Long term (current) use of oral hypoglycemic drugs; Z98.49 Cataract extraction status, unspecified eye; Z90.710 Acquired absence of both cervix and uterus; Z82.49 Family history of ischemic heart disease and other diseases of the circulatory system; Z82.3 Family history of stroke; Z90.49 Acquired absence of other specified parts of digestive tract; Z87.891 Personal history of nicotine dependence; Z91.14 Patient's other noncompliance with medication regimen
CPT/HCPCS: 36415; 36416; 36600; 70450; 70551; 71045; 80048; 80053; 80307; 81003; 81015; 82010; 82140; 82728; 82805; 83036; 83540; 83550; 83605; 83735; 83930; 84100; 84146; 84484; 85025; 85046; 85610; 85730; 87040; 87086; 93005; 93880; 94760; 95712; 95819; 95957; 96360; 96361; 96365; 96366; 99292; C9254; J0360; J1630; J1650; J1815; J2405; J3475; J3480; J7030; J7050; U0003; U0005

== ENCOUNTER 2022-10-03 09:58 | Inpatient (IN) | payer MEDICARE ==
[2022-10-03 10:47] LABS: #Eosinphils 0.4 thou/uL (0.0-0.7); #Monocytes 0.5 thou/uL (0.11-0.59); #Neutrophils 8.8 thou/uL (1.40-6.50); %Basophils 0.3 % (0.0-1.0); %Eosinophils 3.2 % (0.0-10.0); %Lymphocytes 23.4 % (21.0-51.0); %Monocytes 3.6 % (0.0-10.0); %Neutrophils 69.5 % (42.0-75.0); Hemoglobin 9.6 g/dL (12.0-16.0); Mean Corpuscular HGB CONC 32.6 g/dL (32.0-36.0); Mean Corpuscular Hemoglobin 28.5 pg (27.0-31.0); Mean Corpuscular Volume 87.2 fl (78.0-98.0); Mean Platelet Volume 7.2 fL (7.4-10.4); Platelet Count 337 10x3/uL (130-400); RBC Distribution Width 12.9 % (11.5-14.5); Red Blood Cell (RBC) Count 3.38 mill/uL (4.20-5.40); White Blood Cell (WBC) Count 12.7 10x3/uL (4.8-10.8)
[2022-10-03 11:08] LABS: Bilirubin Negative (Negative); Blood, Urine 1+ (Negative); Clarity Clear (Clear); Glucose, Urine (Dipstick) 200 mg/dL (Negative); Ketone, Urine Negative (Negative); Leukocyte Negative Leu/uL (Negative); Nitrite Negative (Negative); Protein, Urine (Dipstick) 200 mg/dL (Neg-Trace); RBC/HPF 0-3 HPF (0-3); Specific Gravity, Urine 1.011 (1.002-1.036); Squamous Epithelial None Seen HPF (0-3); Urobilinogen Normal mg/dL (Less than 2); WBC/HPF 0-3 HPF (0-3); pH, Urine 5.5 (5.0-9.0)
[2022-10-03 11:09] LABS: Bacteria/HPF 1+ HPF (None Seen)
[2022-10-03 11:13] LABS: Actual Bicarbonate (HCO3a) 15.4 mEq/L (22-28); Analyzer IN Cardio ER; Base Excess (BEa) -10.8 mEq/L (-2.0 to +3.0); CO2 Tension 35.4 mmHg (35.0-45.0); Calcium, Ionized (arterial) 1.08 mmol/L (1.12-1.30); Carboxyhemoglobin (COHb) 0.3 gm% (0.0-3.0); Hemoglobin (Hb) 10.1 g/dL (12.0-16.0); O2 Tension (PaO2), arterial 86.8 mmHg (> 70.0); Potassium - ABG Lab 4.82 mmol/L (3.70-5.30); pH, Arterial 7.26 (7.35-7.45)
[2022-10-03 11:16] LABS: Puncture Site LRA
[2022-10-03 11:32] LABS: ALT (SGPT) 10 U/L (8-55); AST (SGOT) 17 U/L (5-34); Albumin 3.7 g/dL (3.4-4.8); Alkaline Phosphatase 125 U/L (40-110); Anion Gap 17 mmol/L (10-20); BUN (Urea Nitrogen) 35 mg/dL (9.8-20.1); Bilirubin, Total 0.3 mg/dL (0.2-1.2); Calc. Creatinine Clearance 0 mL/min (70-130); Carbon Dioxide 13 mmol/L (23-31); Chloride 108 mmol/L (98-107); Estimated GFR 17; Globulin 3.3 g/dL (2.4-3.5); Glucose 307 mg/dL (83-110); Potassium 4.4 mmol/L (3.5-5.1); Sodium 134 mmol/L (136-145)
[2022-10-03] MEDS ORDERED: INSULIN REGULAR IN 0.9 % NACL 100 UNIT/100 ML BAG ONE (11:43)
[2022-10-03 11:56] LABS: Amphetamine Not Detected (NotDetected); Barbiturates Screen Not Detected (NotDetected); Benzodiazepine Screen Not Detected (NotDetected); Cocaine Metabolite Screen Not Detected (NotDetected); Methadone Not Detected (NotDetected); Methamphetamine Not Detected (NotDetected); Opiate Screen Not Detected (NotDetected); Oxycodone Screen Not Detected (NotDetected); Phencyclidine (PCP) Not Detected (NotDetected); THC/Cannabinoid Screen Not Detected (NotDetected); Tricyclic Screen Not Detected (NotDetected)
[2022-10-03 12:03] LABS: Acetaminophen Less than 10.0 mcg/mL (10.0-30.0); Alcohol Less than 10 mg/dL (Less than 10); CK (CPK) 125 U/L (29-168); Lipase 261 U/L (8-78); Magnesium 1.1 mg/dL (1.6-2.6); Salicylate Less than 8.0 mg/dL (15.0-30.0)
[2022-10-03] MEDS ORDERED: Guaifenesin DM 100-10/5 ML UDCUP PO PRN (12:59)
[2022-10-03] MEDS ORDERED: Ondansetron PF 4 MG/2 ML Vial IVP PRN (12:59)
[2022-10-03] MEDS ORDERED: Ondansetron ODT 4 MG TAB PO PRN (12:59)
[2022-10-03] MEDS ORDERED: HYDROcodone/Acetaminophen 5/325 mg Tablet PO PRN (12:59)
[2022-10-03] MEDS ORDERED: Acetaminophen 325 MG TAB PO PRN (12:59)
[2022-10-03] MEDS ORDERED: Dextrose 50% Abboject 50 ML SYRINGE SLOW IVP PRN (13:05)
[2022-10-03] MEDS ORDERED: Dextrose 5% in Water 1,000 ML IV PRN (13:05)
[2022-10-03] MEDS ORDERED: Magnesium Sulfate In Water 4 GM in Premix Bag 1 BAG IVPB SCH (13:45)
[2022-10-03 14:04] LABS: SARS-CoV-2 NAA Rapid Test Not Detected (NotDetected)
[2022-10-03 15:25] LABS: Anion Gap 14 mmol/L (10-20); BUN (Urea Nitrogen) 29 mg/dL (9.8-20.1); Calc. Creatinine Clearance 0 mL/min (70-130); Calcium 7.3 mg/dL (7.8-10.44); Carbon Dioxide 15 mmol/L (23-31); Chloride 116 mmol/L (98-107); Estimated GFR 21; Glucose 181 mg/dL (83-110); Sodium 141 mmol/L (136-145)
[2022-10-03] MEDS ORDERED: Lacosamide 50 mg Tablet PO SCH (21:00)
[2022-10-03 22:29] VITALS: BMI 19.7
[2022-10-03] MEDS: Famotidine/PF 20 mg/2ml Vial SLOW IVP SCH (22:36)
[2022-10-03] MEDS: Rosuvastatin 10 MG TAB PO SCH (22:36)
[2022-10-03] MEDS: Insulin Glargine 30 UNITS/0.3 ML VIAL SC SCH (22:42)
[2022-10-03] MEDS: Lacosamide 150 MG in Sodium Chloride 0.9% 50 ML IVPB SCH (23:30)
[2022-10-04 04:57] LABS: #Eosinphils 0.3 thou/uL (0.0-0.7); #Lymphocytes 2.9 thou/uL (1.20-3.40); #Monocytes 0.9 thou/uL (0.11-0.59); #Neutrophils 8.4 thou/uL (1.40-6.50); %Basophils 0.4 % (0.0-1.0); %Eosinophils 2.1 % (0.0-10.0); %Lymphocytes 22.9 % (21.0-51.0); %Monocytes 7.3 % (0.0-10.0); %Neutrophils 67.3 % (42.0-75.0); Mean Corpuscular HGB CONC 33.1 g/dL (32.0-36.0); Mean Corpuscular Hemoglobin 29.2 pg (27.0-31.0); Mean Corpuscular Volume 88.2 fl (78.0-98.0); Mean Platelet Volume 7.7 fL (7.4-10.4); Platelet Count 304 10x3/uL (130-400); Red Blood Cell (RBC) Count 3.09 mill/uL (4.20-5.40); White Blood Cell (WBC) Count 12.5 10x3/uL (4.8-10.8)
[2022-10-04 05:12] LABS: Anion Gap 13 mmol/L (10-20); BUN (Urea Nitrogen) 27 mg/dL (9.8-20.1); Calc. Creatinine Clearance 18 mL/min (70-130); Carbon Dioxide 16 mmol/L (23-31); Chloride 115 mmol/L (98-107); Estimated GFR 24; Glucose 94 mg/dL (83-110); Potassium 3.4 mmol/L (3.5-5.1); Sodium 141 mmol/L (136-145)
[2022-10-04] MEDS: Sodium Bicarbonate 150 MEQ in Dextrose 5% in Water 1,000 ML IV SCH (05:45)
[2022-10-04] MEDS: Amlodipine 10 MG TAB PO SCH (06:48)
[2022-10-04] MEDS ORDERED: Potassium Chloride 20 MEQ TAB PO SCH (08:00)
[2022-10-04 08:25] LABS: Magnesium 2.4 mg/dL (1.6-2.6); Phosphorus 3.4 mg/dL (2.3-4.7)
[2022-10-04] MEDS ORDERED: FLU VACC QS2022-23(65YR UP)/PF 240 MCG/0.7 ML SYRINGE IM ONE (09:00)
[2022-10-04] MEDS: Enoxaparin Sodium 30 MG/0.3 ML SYRINGE SC SCH (09:16)
[2022-10-04] MEDS: Sertraline 100 MG TAB PO SCH (09:16)
[2022-10-04] MEDS: Insulin Glargine 30 UNITS/0.3 ML VIAL SC SCH ×2 (09:16→20:55)
[2022-10-04] MEDS: Lacosamide 150 MG in Sodium Chloride 0.9% 50 ML IVPB SCH (10:33)
[2022-10-04] MEDS ORDERED: Lacosamide 200 MG in Sodium Chloride 0.9% 50 ML IVPB SCH (15:00)
[2022-10-04] MEDS: HumaLOG 300 UNITS/3 ML VIAL SC PRN (18:10)
[2022-10-04] MEDS: Famotidine/PF 20 mg/2ml Vial SLOW IVP SCH (20:55)
[2022-10-04] MEDS: Rosuvastatin 10 MG TAB PO SCH (20:55)
[2022-10-05] MEDS: Sodium Bicarbonate 150 MEQ in Dextrose 5% in Water 1,000 ML IV SCH (02:13)
[2022-10-05 04:47] LABS: #Eosinphils 0.4 thou/uL (0.0-0.7); #Lymphocytes 2.8 thou/uL (1.20-3.40); #Monocytes 0.9 thou/uL (0.11-0.59); #Neutrophils 9.5 thou/uL (1.40-6.50); %Basophils 0.2 % (0.0-1.0); %Eosinophils 2.7 % (0.0-10.0); %Lymphocytes 20.5 % (21.0-51.0); %Monocytes 6.6 % (0.0-10.0); %Neutrophils 70.1 % (42.0-75.0); Hemoglobin 9.9 g/dL (12.0-16.0); Mean Corpuscular HGB CONC 32.7 g/dL (32.0-36.0); Mean Corpuscular Hemoglobin 28.7 pg (27.0-31.0); Mean Corpuscular Volume 87.8 fl (78.0-98.0); Mean Platelet Volume 7.3 fL (7.4-10.4); Platelet Count 347 10x3/uL (130-400); RBC Distribution Width 12.9 % (11.5-14.5); Red Blood Cell (RBC) Count 3.46 mill/uL (4.20-5.40); White Blood Cell (WBC) Count 13.5 10x3/uL (4.8-10.8)
[2022-10-05 05:11] LABS: Anion Gap 14 mmol/L (10-20); BUN (Urea Nitrogen) 22 mg/dL (9.8-20.1); Calc. Creatinine Clearance 17 mL/min (70-130); Calcium 8.7 mg/dL (7.8-10.44); Carbon Dioxide 20 mmol/L (23-31); Chloride 108 mmol/L (98-107); Estimated GFR 22; Glucose 157 mg/dL (83-110); Magnesium 1.8 mg/dL (1.6-2.6); Phosphorus 2.6 mg/dL (2.3-4.7); Potassium 3.8 mmol/L (3.5-5.1); Sodium 138 mmol/L (136-145)
[2022-10-05] MEDS: HumaLOG 300 UNITS/3 ML VIAL SC PRN (06:26)
[2022-10-05 08:10] VITALS: TEMP 98.4
[2022-10-05] MEDS ORDERED: Lacosamide 200 MG in Sodium Chloride 0.9% 50 ML IVPB SCH (09:00)
[2022-10-05] MEDS: Amlodipine 10 MG TAB PO SCH (09:18)
[2022-10-05] MEDS: Enoxaparin Sodium 30 MG/0.3 ML SYRINGE SC SCH (09:19)
[2022-10-05] MEDS: Sertraline 100 MG TAB PO SCH (09:19)
[2022-10-05] MEDS: Insulin Glargine 30 UNITS/0.3 ML VIAL SC SCH (09:19)
[2022-10-05 12:17] VITALS: BP 174/84
[2022-10-05] MEDS ORDERED: cloNIDine 0.1 MG TAB PO SCH (21:00)
== END 2022-10-05 14:20 | disposition home health service (06) | DRG 100 ==
LOC: ERS 09:58 → ERHOLD 13:03 → 2NO 22:16
PROVIDERS: ADMIT Family Medicine; ATTEND Family Medicine
DX: G40.909 Epilepsy, unspecified, not intractable, without status epilepticus (principal); G93.41 Metabolic encephalopathy; N17.9 Acute kidney failure, unspecified; N18.4 Chronic kidney disease, stage 4 (severe); E87.20 Acidosis, unspecified; Z20.822 Contact with and (suspected) exposure to COVID-19; E11.22 Type 2 diabetes mellitus with diabetic chronic kidney disease; E11.51 Type 2 diabetes mellitus with diabetic peripheral angiopathy without gangrene; E83.42 Hypomagnesemia; D63.1 Anemia in chronic kidney disease; Z88.8 Allergy status to other drugs, medicaments and biological substances; Z79.899 Other long term (current) drug therapy; Z79.82 Long term (current) use of aspirin; Z79.4 Long term (current) use of insulin; Z89.512 Acquired absence of left leg below knee; Z89.511 Acquired absence of right leg below knee; Z90.710 Acquired absence of both cervix and uterus; Z98.49 Cataract extraction status, unspecified eye; Z82.49 Family history of ischemic heart disease and other diseases of the circulatory system; Z83.3 Family history of diabetes mellitus
CPT/HCPCS: 36415; 36416; 51701; 70450; 71045; 74176; 80048; 80053; 80306; 80307; 81003; 81015; 82010; 82140; 82550; 82805; 83690; 83735; 83930; 84100; 84146; 84443; 84484; 85025; 87040; 87086; 87804; 93005; 94760; 95712; 95819; 95957; 96361; 96365; C9254; J1650; J1815; J3475; J7070; S0028; U0002

== ENCOUNTER 2023-01-18 10:28 | Outpatient (CLI) | payer MEDICARE | END 2023-01-18 10:29 | disposition home or self-care (01) | LOC: MRI 10:28 | PROVIDERS: ATTEND Anesthesiology Pain Medicine | DX: M48.02 Spinal stenosis, cervical region (principal); M54.12 Radiculopathy, cervical region; M47.812 Spondylosis without myelopathy or radiculopathy, cervical region; M47.813 Spondylosis without myelopathy or radiculopathy, cervicothoracic region; M50.31 Other cervical disc degeneration, high cervical region; M25.78 Osteophyte, vertebrae; M50.321 Other cervical disc degeneration at C4-C5 level; M50.322 Other cervical disc degeneration at C5-C6 level; M48.062 Spinal stenosis, lumbar region with neurogenic claudication | CPT/HCPCS: 72141 ==

== ENCOUNTER 2023-02-03 20:28 | Inpatient (IN) | payer MEDICARE ==
[2023-02-03 21:45] LABS: #Basophils 0.1 thou/uL (0.0-0.2); #Eosinphils 0.3 thou/uL (0.0-0.7); #Lymphocytes 2.4 thou/uL (1.20-3.40); #Monocytes 0.9 thou/uL (0.11-0.59); #Neutrophils 8.4 thou/uL (1.40-6.50); %Basophils 0.5 % (0.0-1.0); %Eosinophils 2.4 % (0.0-10.0); %Lymphocytes 20.2 % (21.0-51.0); %Monocytes 7.1 % (0.0-10.0); %Neutrophils 69.8 % (42.0-75.0); Hemoglobin 10.4 g/dL (12.0-16.0); Mean Corpuscular HGB CONC 34.6 g/dL (32.0-36.0); Mean Corpuscular Hemoglobin 29.4 pg (27.0-31.0); Mean Platelet Volume 7.7 fL (7.4-10.4); Platelet Count 443 10x3/uL (130-400); RBC Distribution Width 12.6 % (11.5-14.5); Red Blood Cell (RBC) Count 3.53 mill/uL (4.20-5.40); White Blood Cell (WBC) Count 12.1 10x3/uL (4.8-10.8)
[2023-02-03] MEDS ORDERED: Morphine 4 MG/ML VIAL ONE (21:46)
[2023-02-03] MEDS ORDERED: Ondansetron PF 4 MG/2 ML Vial ONE (21:46)
[2023-02-03 22:05] LABS: ALT (SGPT) 32 U/L (8-55); AST (SGOT) 52 U/L (5-34); Albumin 3.6 g/dL (3.4-4.8); Alkaline Phosphatase 158 U/L (40-110); Anion Gap 16 mmol/L (10-20); BUN (Urea Nitrogen) 55 mg/dL (9.8-20.1); Bilirubin, Total 0.3 mg/dL (0.2-1.2); Calc. Creatinine Clearance 0 mL/min (70-130); Calcium 8.8 mg/dL (7.8-10.44); Carbon Dioxide 17 mmol/L (23-31); Chloride 110 mmol/L (98-107); Estimated GFR 15; Globulin 3.8 g/dL (2.4-3.5); Glucose 259 mg/dL (83-110); Potassium 5.1 mmol/L (3.5-5.1); Protein, Total 7.4 g/dL (5.8-8.1); Sodium 138 mmol/L (136-145)
[2023-02-03 23:49] LABS: Base Excess -7.6 mEq/L (-2.0 to +3.0); Calcium, Ionized (venous) 1.11 mmol/L (1.16-1.32); Chloride (VBG) 108 mmol/L (98-106); Hematocrit-VBG 30 % (36.0-47.0); Hemoglobin (Hb) 10.1 g/dL (11.7-16.1); Potassium (VBG) 4.38 mmol/L (3.70-5.30); Sodium 137.7 mmol/L (133-146); pH (venous) 7.306 (7.32-7.43)
[2023-02-04] MEDS ORDERED: Dextrose 50% Abboject 50 ML SYRINGE SLOW IVP PRN (00:52)
[2023-02-04] MEDS ORDERED: Dextrose 5% in Water 1,000 ML IV PRN (00:52)
[2023-02-04] MEDS ORDERED: HumaLOG 300 UNITS/3 ML VIAL SC PRN (00:52)
[2023-02-04] MEDS: Sodium Chloride 0.9% 1,000 ML IV SCH ×2 (04:23→11:54)
[2023-02-04 04:51] VITALS: BMI 19.1
[2023-02-04 05:09] LABS: #Basophils 0.1 thou/uL (0.0-0.2); #Eosinphils 0.2 thou/uL (0.0-0.7); #Lymphocytes 2.6 thou/uL (1.20-3.40); #Monocytes 1.1 thou/uL (0.11-0.59); #Neutrophils 7.8 thou/uL (1.40-6.50); %Basophils 0.6 % (0.0-1.0); %Eosinophils 1.9 % (0.0-10.0); %Lymphocytes 21.9 % (21.0-51.0); %Monocytes 9.3 % (0.0-10.0); %Neutrophils 66.4 % (42.0-75.0); Hemoglobin 9.4 g/dL (12.0-16.0); Mean Corpuscular HGB CONC 32.4 g/dL (32.0-36.0); Mean Corpuscular Hemoglobin 27.5 pg (27.0-31.0); Mean Corpuscular Volume 84.8 fl (78.0-98.0); Mean Platelet Volume 7.5 fL (7.4-10.4); Platelet Count 398 10x3/uL (130-400); RBC Distribution Width 12.8 % (11.5-14.5); Red Blood Cell (RBC) Count 3.43 mill/uL (4.20-5.40); White Blood Cell (WBC) Count 11.7 10x3/uL (4.8-10.8)
[2023-02-04 05:25] LABS: Anion Gap 14 mmol/L (10-20); BUN (Urea Nitrogen) 51 mg/dL (9.8-20.1); Calc. Creatinine Clearance 13 mL/min (70-130); Calcium 8.2 mg/dL (7.8-10.44); Carbon Dioxide 17 mmol/L (23-31); Chloride 111 mmol/L (98-107); Estimated GFR 17; Glucose 218 mg/dL (83-110); Potassium 4.3 mmol/L (3.5-5.1); Sodium 138 mmol/L (136-145)
[2023-02-04] MEDS ORDERED: cloNIDine 0.1 MG TAB PO PRN (07:53)
[2023-02-04] MEDS: Sertraline 100 MG TAB PO SCH (08:54)
[2023-02-04] MEDS: Cholecalciferol 1,000 UNITS (25 MCG) TAB PO SCH (08:54)
[2023-02-04] MEDS: Aspirin Chewable 81 MG TAB PO SCH (08:54)
[2023-02-04] MEDS: Lacosamide 50 mg Tablet PO SCH ×2 (08:54→20:27)
[2023-02-04] MEDS: Amlodipine 10 MG TAB PO SCH (08:55)
[2023-02-04] MEDS ORDERED: Non-Formulary Item 1 EACH (Potassium Gluconate [Potassium] 600 MG Tablet) PO SCH (09:00)
[2023-02-04] MEDS ORDERED: Aspirin 325 MG TAB PO SCH (09:00)
[2023-02-04] MEDS ORDERED: Non-Formulary Item 1 EACH (Lacosamide [Vimpat] 200 MG Tablet) PO SCH (09:00)
[2023-02-04] MEDS ORDERED: Non-Formulary Item 1 EACH (Sertraline Hcl [Zoloft] 50 MG Tablet) PO SCH (09:00)
[2023-02-04] MEDS: Potassium Chloride 8 MEQ TAB PO SCH (11:39)
[2023-02-04 11:45] LABS: Bacteria/HPF None Seen HPF (None Seen); Bilirubin Negative (Negative); Blood, Urine Negative (Negative); CAUTI Indications for Culture Dysuria,urgency,freq; Clarity Clear (Clear); Glucose, Urine (Dipstick) 200 mg/dL (Negative); Ketone, Urine Negative (Negative); Leukocyte Negative Leu/uL (Negative); Nitrite Negative (Negative); Protein, Urine (Dipstick) 200 mg/dL (Neg-Trace); RBC/HPF 0-3 HPF (0-3); Specific Gravity, Urine 1.011 (1.002-1.036); Squamous Epithelial None Seen HPF (0-3); Urobilinogen Normal mg/dL (Less than 2); WBC/HPF 0-3 HPF (0-3); pH, Urine 5.5 (5.0-9.0)
[2023-02-04 11:53] LABS: Urine Culture Reflex No No
[2023-02-04 14:34] LABS: Creatinine, Urine 51.49 mg/dL (47-110)
[2023-02-04] MEDS ORDERED: Sodium Bicarbonate 50 MEQ in Sodium Chloride 0.45% 1,000 ML IV SCH (19:15)
[2023-02-04] MEDS: Rosuvastatin 20 MG TAB PO SCH (20:28)
[2023-02-05 04:31] LABS: #Basophils 0.1 thou/uL (0.0-0.2); #Eosinphils 0.2 thou/uL (0.0-0.7); #Lymphocytes 2.1 thou/uL (1.20-3.40); #Monocytes 0.8 thou/uL (0.11-0.59); #Neutrophils 6.7 thou/uL (1.40-6.50); %Basophils 0.6 % (0.0-1.0); %Eosinophils 2.3 % (0.0-10.0); %Lymphocytes 21.2 % (21.0-51.0); %Neutrophils 67.9 % (42.0-75.0); Hemoglobin 8.8 g/dL (12.0-16.0); Mean Corpuscular HGB CONC 32.9 g/dL (32.0-36.0); Mean Platelet Volume 7.6 fL (7.4-10.4); Platelet Count 355 10x3/uL (130-400); RBC Distribution Width 12.6 % (11.5-14.5); Red Blood Cell (RBC) Count 3.16 mill/uL (4.20-5.40); White Blood Cell (WBC) Count 9.9 10x3/uL (4.8-10.8)
[2023-02-05 04:46] LABS: Iron 67 ug/dL (50-170); Iron Binding Capacity, Total 201 mcg/dL (265-497)
[2023-02-05 04:48] LABS: ALT (SGPT) 50 U/L (8-55); AST (SGOT) 55 U/L (5-34); Albumin 2.9 g/dL (3.4-4.8); Alkaline Phosphatase 153 U/L (40-110); Anion Gap 11 mmol/L (10-20); BUN (Urea Nitrogen) 40 mg/dL (9.8-20.1); Bilirubin, Total 0.2 mg/dL (0.2-1.2); Calc. Creatinine Clearance 14 mL/min (70-130); Calcium 8.1 mg/dL (7.8-10.44); Carbon Dioxide 20 mmol/L (23-31); Chloride 112 mmol/L (98-107); Estimated GFR 18; Globulin 2.8 g/dL (2.4-3.5); Glucose 145 mg/dL (83-110); Magnesium 1.5 mg/dL (1.6-2.6); Phosphorus 3.6 mg/dL (2.3-4.7); Potassium 4.3 mmol/L (3.5-5.1); Protein, Total 5.7 g/dL (5.8-8.1); Sodium 139 mmol/L (136-145)
[2023-02-05] MEDS ORDERED: EPOETIN ALFA-EPBX (ESRD) 10,000 UNITS/ML VIAL SC SCH (09:00)
[2023-02-05] MEDS ORDERED: Electrolyte Replacement Protocol 1 EACH FS ONE ×2 (09:09→15:56)
[2023-02-05] MEDS: Aspirin Chewable 81 MG TAB PO SCH (09:57)
[2023-02-05] MEDS: Potassium Chloride 8 MEQ TAB PO SCH (09:57)
[2023-02-05] MEDS: Sertraline 100 MG TAB PO SCH (09:57)
[2023-02-05] MEDS: Lacosamide 50 mg Tablet PO SCH ×2 (09:57→19:57)
[2023-02-05] MEDS: Amlodipine 10 MG TAB PO SCH (09:58)
[2023-02-05] MEDS: Cholecalciferol 1,000 UNITS (25 MCG) TAB PO SCH (09:59)
[2023-02-05] MEDS: Sodium Chloride 0.9% 1,000 ML IV SCH ×2 (10:03→17:54)
[2023-02-05 10:07] LABS: HBCM Index 0.07 S/CO (0-0.79); HBSAg Index 0.23 S/CO (0-0.99); Hep A IgM AB Non-Reactive S/CO (NonReactive); Hep A IgM S/CO 0.36 S/CO (0-0.79); Hep B Surf Ag Non-Reactive S/CO (NonReactive); Hep C IgG Ab Non-Reactive S/CO (NonReactive); Hep C Index 0.35 S/CO (0-0.79); Hepatitis B Core IgM Abs Non-Reactive S/CO (NonReactive)
[2023-02-05] MEDS ORDERED: Magnesium Sulfate 4 GM in Sodium Chloride 0.9% 250 ML 250 ML IVPB SCH (16:15)
[2023-02-05] MEDS ORDERED: Magnesium 2 GM/50 ML(in water) 2 GM in Premix Bag 1 BAG IVPB SCH (16:15)
[2023-02-05] MEDS ORDERED: Magnesium Sulfate 2 GM in Sodium Chloride 0.9% 250 ML 250 ML IVPB SCH (16:15)
[2023-02-05] MEDS: Ferrous Sulfate 325 MG TAB PO SCH (17:12)
[2023-02-05] MEDS: HumaLOG 300 UNITS/3 ML VIAL SC PRN (17:12)
[2023-02-05] MEDS: Rosuvastatin 20 MG TAB PO SCH (19:57)
[2023-02-05] MEDS: Heparin 5,000 UNITS/ML VIAL SC SCH (19:58)
[2023-02-05] MEDS: Ondansetron PF 4 MG/2 ML Vial IVP PRN (21:28)
[2023-02-06 05:28] LABS: #Lymphocytes 1.7 thou/uL (1.20-3.40); #Monocytes 0.4 thou/uL (0.11-0.59); #Neutrophils 7.9 thou/uL (1.40-6.50); %Basophils 0.3 % (0.0-1.0); %Eosinophils 0.5 % (0.0-10.0); %Monocytes 3.9 % (0.0-10.0); %Neutrophils 78.4 % (42.0-75.0); Hemoglobin 8.5 g/dL (12.0-16.0); Mean Corpuscular HGB CONC 33.4 g/dL (32.0-36.0); Mean Corpuscular Hemoglobin 28.4 pg (27.0-31.0); Mean Platelet Volume 7.5 fL (7.4-10.4); Platelet Count 374 10x3/uL (130-400); RBC Distribution Width 12.6 % (11.5-14.5); White Blood Cell (WBC) Count 10.1 10x3/uL (4.8-10.8)
[2023-02-06] MEDS: Sodium Chloride 0.9% 1,000 ML IV SCH ×2 (05:48→13:42)
[2023-02-06 05:54] LABS: Anion Gap 14 mmol/L (10-20); BUN (Urea Nitrogen) 36 mg/dL (9.8-20.1); Calc. Creatinine Clearance 15 mL/min (70-130); Calcium 8.2 mg/dL (7.8-10.44); Carbon Dioxide 18 mmol/L (23-31); Chloride 112 mmol/L (98-107); Estimated GFR 20; Glucose 173 mg/dL (83-110); Potassium 4.6 mmol/L (3.5-5.1); Sodium 139 mmol/L (136-145)
[2023-02-06] MEDS ORDERED: Ferrous Sulfate 325 MG TAB PO SCH (08:00)
[2023-02-06] MEDS: Potassium Chloride 8 MEQ TAB PO SCH (09:36)
[2023-02-06] MEDS: Lacosamide 50 mg Tablet PO SCH ×2 (09:37→20:51)
[2023-02-06] MEDS: Aspirin Chewable 81 MG TAB PO SCH (09:37)
[2023-02-06] MEDS: Amlodipine 10 MG TAB PO SCH (09:37)
[2023-02-06] MEDS: Sertraline 100 MG TAB PO SCH (09:38)
[2023-02-06] MEDS: Ferrous Sulfate 325 MG TAB PO SCH ×2 (09:38→17:03)
[2023-02-06] MEDS: Heparin 5,000 UNITS/ML VIAL SC SCH ×2 (09:38→20:51)
[2023-02-06] MEDS: Cholecalciferol 1,000 UNITS (25 MCG) TAB PO SCH (09:39)
[2023-02-06] MEDS: HYDROcodone/Acetaminophen 7.5/325 mg Tablet PO PRN (18:38)
[2023-02-06] MEDS: HumaLOG 300 UNITS/3 ML VIAL SC PRN (18:38)
[2023-02-06] MEDS: Rosuvastatin 20 MG TAB PO SCH (20:49)
[2023-02-06] MEDS: Ondansetron PF 4 MG/2 ML Vial IVP PRN (21:34)
[2023-02-07] MEDS: Sodium Chloride 0.9% 1,000 ML IV SCH ×3 (02:14→20:32)
[2023-02-07 05:16] LABS: Anion Gap 14 mmol/L (10-20); BUN (Urea Nitrogen) 43 mg/dL (9.8-20.1); Calc. Creatinine Clearance 13 mL/min (70-130); Calcium 8.6 mg/dL (7.8-10.44); Carbon Dioxide 17 mmol/L (23-31); Chloride 115 mmol/L (98-107); Estimated GFR 18; Glucose 178 mg/dL (83-110); Potassium 4.9 mmol/L (3.5-5.1); Sodium 141 mmol/L (136-145)
[2023-02-07 06:47] LABS: Hemoglobin 9.1 g/dL (12.0-16.0); Mean Corpuscular HGB CONC 31.9 g/dL (32.0-36.0); Mean Corpuscular Hemoglobin 27.5 pg (27.0-31.0); Mean Corpuscular Volume 86.2 fl (78.0-98.0); Mean Platelet Volume 7.7 fL (7.4-10.4); Platelet Count 413 10x3/uL (130-400); Red Blood Cell (RBC) Count 3.31 mill/uL (4.20-5.40); White Blood Cell (WBC) Count 21.6 10x3/uL (4.8-10.8)
[2023-02-07 07:41] LABS: Band 3 % (5-11); Lymphocytes 5 % (21-51); MDiff Complete? YES; Monocytes 4 % (0-10); Neutrophil 88 % (42-75); Platelet Morphology Comment Appears Increased; Polychromasia SLIGHT = 2-3 cells (100X) (0-2/hpf)
[2023-02-07 08:31] LABS: #Lymphocytes 2.2 thou/uL (1.20-3.40); #Neutrophils 19.2 thou/uL (1.40-6.50); %Eosinophils 0.2 % (0.0-10.0); %Lymphocytes 9.3 % (21.0-51.0); %Monocytes 8.6 % (0.0-10.0); %Neutrophils 81.9 % (42.0-75.0); Hemoglobin 9.1 g/dL (12.0-16.0); Mean Corpuscular Hemoglobin 28.6 pg (27.0-31.0); Mean Corpuscular Volume 84.4 fl (78.0-98.0); Mean Platelet Volume 7.4 fL (7.4-10.4); Platelet Count 419 10x3/uL (130-400); Red Blood Cell (RBC) Count 3.17 mill/uL (4.20-5.40); White Blood Cell (WBC) Count 23.4 10x3/uL (4.8-10.8)
[2023-02-07] MEDS: Ondansetron PF 4 MG/2 ML Vial IVP PRN (09:33)
[2023-02-07] MEDS: Sertraline 100 MG TAB PO SCH (09:36)
[2023-02-07] MEDS: Cholecalciferol 1,000 UNITS (25 MCG) TAB PO SCH (09:37)
[2023-02-07] MEDS: Amlodipine 10 MG TAB PO SCH (09:37)
[2023-02-07] MEDS: Lacosamide 50 mg Tablet PO SCH (09:37)
[2023-02-07] MEDS: Aspirin Chewable 81 MG TAB PO SCH (09:38)
[2023-02-07] MEDS: Ferrous Sulfate 325 MG TAB PO SCH ×2 (09:38→16:38)
[2023-02-07] MEDS: Potassium Chloride 8 MEQ TAB PO SCH (09:38)
[2023-02-07] MEDS: Heparin 5,000 UNITS/ML VIAL SC SCH ×2 (09:39→20:35)
[2023-02-07 13:09] LABS: Bacteria/HPF 4+ HPF (None Seen); Bilirubin Negative (Negative); Blood, Urine 3+ (Negative); CAUTI Indications for Culture Alt mental st,lethar; Clarity Turbid (Clear); Glucose, Urine (Dipstick) Normal (Negative); Ketone, Urine Negative (Negative); Leukocyte 500 Leu/uL (Negative); Nitrite Negative (Negative); Protein, Urine (Dipstick) 200 mg/dL (Neg-Trace); RBC/HPF Greater than 50 HPF (0-3); Squamous Epithelial 0-3 HPF (0-3); Urobilinogen Normal mg/dL (Less than 2); WBC/HPF Greater than 50 HPF (0-3)
[2023-02-07 13:11] LABS: Urine Culture Reflex Yes Yes
[2023-02-07] MEDS: HYDROcodone/Acetaminophen 7.5/325 mg Tablet PO PRN (14:11)
[2023-02-07] MEDS: metroNIDAZOLE 500 MG in Premix Bag 1 BAG IVPB SCH ×2 (14:14→22:08)
[2023-02-07 15:11] LABS: ALT (SGPT) 34 U/L (8-55); AST (SGOT) 26 U/L (5-34); Albumin 3.3 g/dL (3.4-4.8); Alkaline Phosphatase 163 U/L (40-110); Bilirubin, Direct 0.1 mg/dL (0.1-0.3); Bilirubin, Total 0.2 mg/dL (0.2-1.2); Protein, Total 6.1 g/dL (5.8-8.1)
[2023-02-07] MEDS ORDERED: hydrALAZINE 20 MG/ML VIAL SLOW IVP PRN (17:46)
[2023-02-07] MEDS: Doxycycline 100 MG in Sodium Chloride 0.9% 100 ML IVPB SCH (20:27)
[2023-02-07] MEDS: Cefepime 1 GM in Sodium Chloride 0.9% 100 ML IVPB SCH (20:28)
[2023-02-07] MEDS: Rosuvastatin 20 MG TAB PO SCH (20:33)
[2023-02-07] MEDS: Lacosamide 200 MG in Sodium Chloride 0.9% 50 ML IVPB SCH (21:05)
[2023-02-07] MEDS ORDERED: Morphine 4 MG/ML VIAL SLOW IVP PRN (22:17)
[2023-02-08] MEDS: metroNIDAZOLE 500 MG in Premix Bag 1 BAG IVPB SCH (05:11)
[2023-02-08] MEDS: Sodium Chloride 0.9% 1,000 ML IV SCH ×2 (05:11→17:30)
[2023-02-08 05:20] LABS: Hemoglobin 9.4 g/dL (12.0-16.0); Mean Corpuscular HGB CONC 33.2 g/dL (32.0-36.0); Mean Corpuscular Hemoglobin 28.8 pg (27.0-31.0); Mean Corpuscular Volume 86.7 fl (78.0-98.0); Mean Platelet Volume 7.8 fL (7.4-10.4); Platelet Count 425 10x3/uL (130-400); RBC Distribution Width 13.4 % (11.5-14.5); Red Blood Cell (RBC) Count 3.28 mill/uL (4.20-5.40); White Blood Cell (WBC) Count 25.9 10x3/uL (4.8-10.8)
[2023-02-08 05:30] LABS: ALT (SGPT) 30 U/L (8-55); AST (SGOT) 29 U/L (5-34); Albumin 3.2 g/dL (3.4-4.8); Alkaline Phosphatase 159 U/L (40-110); Anion Gap 13 mmol/L (10-20); BUN (Urea Nitrogen) 46 mg/dL (9.8-20.1); Bilirubin, Total 0.2 mg/dL (0.2-1.2); Calc. Creatinine Clearance 13 mL/min (70-130); Calcium 8.7 mg/dL (7.8-10.44); Carbon Dioxide 18 mmol/L (23-31); Chloride 117 mmol/L (98-107); Estimated GFR 17; Globulin 3.1 g/dL (2.4-3.5); Glucose 168 mg/dL (83-110); Potassium 4.4 mmol/L (3.5-5.1); Protein, Total 6.3 g/dL (5.8-8.1); Sodium 144 mmol/L (136-145)
[2023-02-08 06:10] LABS: Band 1 % (5-11); Lymphocytes 7 % (21-51); MDiff Complete? YES; Monocytes 3 % (0-10); Myelocyte 1 % (0-0); Neutrophil 88 % (42-75)
[2023-02-08] MEDS ORDERED: Meropenem 500 MG in Sodium Chloride 0.9% 100 ML IVPB SCH ×3 (09:15→22:00)
[2023-02-08] MEDS: Doxycycline 100 MG in Sodium Chloride 0.9% 100 ML IVPB SCH (09:25)
[2023-02-08] MEDS: Aspirin Chewable 81 MG TAB PO SCH (09:25)
[2023-02-08] MEDS: Amlodipine 10 MG TAB PO SCH (09:25)
[2023-02-08] MEDS: Sertraline 100 MG TAB PO SCH (09:26)
[2023-02-08] MEDS: Potassium Chloride 8 MEQ TAB PO SCH (09:26)
[2023-02-08] MEDS: Cholecalciferol 1,000 UNITS (25 MCG) TAB PO SCH (09:26)
[2023-02-08] MEDS: Heparin 5,000 UNITS/ML VIAL SC SCH ×2 (09:26→21:00)
[2023-02-08] MEDS: Lacosamide 200 MG in Sodium Chloride 0.9% 50 ML IVPB SCH ×2 (10:23→21:01)
[2023-02-08] MEDS: Ferrous Sulfate 325 MG TAB PO SCH (10:24)
[2023-02-08] MEDS: Cefepime 1 GM in Sodium Chloride 0.9% 100 ML IVPB SCH (10:24)
[2023-02-08] MEDS: Albumin 25% 25 GM/100 ML BOT IVPB SCH ×2 (13:18→17:29)
[2023-02-08] MEDS ORDERED: Vancomycin 1 GM in Sodium Chloride 0.9% 250 ML 250 ML IVPB SCH (16:00)
[2023-02-08] MEDS ORDERED: Vancomycin 1 GM in Premix Bag 1 BAG IVPB SCH ×2 (16:00)
[2023-02-08] MEDS: Dextrose 5 % And 0.9 % NaCl 1,000 ML IV SCH (19:00)
[2023-02-08] MEDS: Rosuvastatin 20 MG TAB PO SCH ×2 (21:01→23:28)
[2023-02-09] MEDS: Albumin 25% 25 GM/100 ML BOT IVPB SCH ×4 (00:55→16:21)
[2023-02-09] MEDS: Dextrose 5 % And 0.9 % NaCl 1,000 ML IV SCH ×2 (06:33→16:22)
[2023-02-09 07:59] LABS: #Eosinphils 0.1 thou/uL (0.0-0.7); #Lymphocytes 2.1 thou/uL (1.20-3.40); #Monocytes 1.1 thou/uL (0.11-0.59); #Neutrophils 14.3 thou/uL (1.40-6.50); %Eosinophils 0.6 % (0.0-10.0); %Lymphocytes 11.7 % (21.0-51.0); %Monocytes 6.3 % (0.0-10.0); %Neutrophils 81.4 % (42.0-75.0); Hemoglobin 7.9 g/dL (12.0-16.0); Mean Corpuscular HGB CONC 32.8 g/dL (32.0-36.0); Mean Corpuscular Hemoglobin 28.4 pg (27.0-31.0); Mean Corpuscular Volume 86.7 fl (78.0-98.0); Mean Platelet Volume 7.8 fL (7.4-10.4); Platelet Count 362 10x3/uL (130-400); RBC Distribution Width 13.5 % (11.5-14.5); Red Blood Cell (RBC) Count 2.79 mill/uL (4.20-5.40); White Blood Cell (WBC) Count 17.6 10x3/uL (4.8-10.8)
[2023-02-09 08:21] LABS: Anion Gap 14 mmol/L (10-20); BUN (Urea Nitrogen) 45 mg/dL (9.8-20.1); Calc. Creatinine Clearance 13 mL/min (70-130); Calcium 8.8 mg/dL (7.8-10.44); Carbon Dioxide 17 mmol/L (23-31); Chloride 115 mmol/L (98-107); Estimated GFR 18; Glucose 165 mg/dL (83-110); Potassium 3.6 mmol/L (3.5-5.1); Sodium 142 mmol/L (136-145)
[2023-02-09] MEDS: Pantoprazole 40 MG VIAL IVP SCH (09:18)
[2023-02-09] MEDS: Lacosamide 200 MG in Sodium Chloride 0.9% 50 ML IVPB SCH ×2 (09:18→22:09)
[2023-02-09] MEDS: Aspirin Chewable 81 MG TAB PO SCH (09:19)
[2023-02-09] MEDS: Cholecalciferol 1,000 UNITS (25 MCG) TAB PO SCH (09:19)
[2023-02-09] MEDS: Amlodipine 10 MG TAB PO SCH (09:19)
[2023-02-09] MEDS: Potassium Chloride 8 MEQ TAB PO SCH (09:19)
[2023-02-09] MEDS: Heparin 5,000 UNITS/ML VIAL SC SCH ×2 (09:19→22:08)
[2023-02-09] MEDS: Sertraline 100 MG TAB PO SCH (09:20)
[2023-02-09] MEDS: CEFAZOLIN 1 GM in Sodium Chloride 0.9% 100 ML IVPB SCH ×2 (09:36→22:08)
[2023-02-09 21:09] LABS: Actual Bicarbonate (HCO3a) 18.4 mEq/L (22-28); Base Excess (BEa) -6.6 mEq/L (-2.0 to +3.0); CO2 Tension 34.4 mmHg (35.0-45.0); Calcium, Ionized (arterial) 1.19 mmol/L (1.12-1.30); Carboxyhemoglobin (COHb) 0.4 gm% (0.0-3.0); Hematocrit-ABG 25 % (36.0-47.0); Hemoglobin (Hb) 8.6 g/dL (12.0-16.0); Potassium - ABG Lab 3.61 mmol/L (3.70-5.30); pH, Arterial 7.346 (7.35-7.45)
[2023-02-09 22:06] LABS: O2 Tension (PaO2), arterial 51.5 mmHg (> 70.0)
[2023-02-09 22:07] LABS: Puncture Site LBA
[2023-02-09] MEDS: Rosuvastatin 20 MG TAB PO SCH (22:09)
[2023-02-10] MEDS: Dextrose 5 % And 0.9 % NaCl 1,000 ML IV SCH ×2 (00:55→09:59)
[2023-02-10 05:21] LABS: ALT (SGPT) 16 U/L (8-55); AST (SGOT) 27 U/L (5-34); Albumin 3.8 g/dL (3.4-4.8); Alkaline Phosphatase 116 U/L (40-110); Anion Gap 17 mmol/L (10-20); BUN (Urea Nitrogen) 48 mg/dL (9.8-20.1); Bilirubin, Total 0.2 mg/dL (0.2-1.2); Calc. Creatinine Clearance 12 mL/min (70-130); Calcium 8.6 mg/dL (7.8-10.44); Carbon Dioxide 15 mmol/L (23-31); Chloride 111 mmol/L (98-107); Estimated GFR 16; Globulin 2.1 g/dL (2.4-3.5); Glucose 180 mg/dL (83-110); Potassium 3.7 mmol/L (3.5-5.1); Protein, Total 5.9 g/dL (5.8-8.1); Sodium 139 mmol/L (136-145)
[2023-02-10 05:55] LABS: Hemoglobin 8.9 g/dL (12.0-16.0); Lymphocytes 13 % (21-51); MDiff Complete? YES; Mean Corpuscular HGB CONC 33.4 g/dL (32.0-36.0); Mean Corpuscular Hemoglobin 29.1 pg (27.0-31.0); Mean Platelet Volume 7.9 fL (7.4-10.4); Monocytes 2 % (0-10); Neutrophil 85 % (42-75); Platelet Count 383 10x3/uL (130-400); Platelet Morphology Comment Appears Adequate; RBC Distribution Width 13.8 % (11.5-14.5); RBC Morphology Normal; Red Blood Cell (RBC) Count 3.06 mill/uL (4.20-5.40); White Blood Cell (WBC) Count 20.3 10x3/uL (4.8-10.8)
[2023-02-10 07:35] VITALS: BP 137/81; TEMP 97.5
[2023-02-10] MEDS: Lacosamide 200 MG in Sodium Chloride 0.9% 50 ML IVPB SCH (09:27)
[2023-02-10] MEDS: Pantoprazole 40 MG VIAL IVP SCH (09:32)
[2023-02-10] MEDS: Heparin 5,000 UNITS/ML VIAL SC SCH (09:32)
[2023-02-10] MEDS: Aspirin Chewable 81 MG TAB PO SCH (09:34)
[2023-02-10] MEDS: Potassium Chloride 8 MEQ TAB PO SCH (09:34)
[2023-02-10] MEDS: Amlodipine 10 MG TAB PO SCH (09:35)
[2023-02-10] MEDS: Sertraline 100 MG TAB PO SCH (09:35)
[2023-02-10] MEDS: Cholecalciferol 1,000 UNITS (25 MCG) TAB PO SCH (09:35)
[2023-02-10] MEDS ORDERED: Furosemide 40 MG/4 ML VIAL SLOW IVP SCH (14:00)
== END 2023-02-10 15:15 | disposition expired | DRG 871 ==
LOC: ERS 20:28 → 2NO 02-04 00:53 → OBSVTOIN 02-06 11:54
PROVIDERS: ADMIT Internal Medicine; ATTEND Internal Medicine
DX: A41.01 Sepsis due to Methicillin susceptible Staphylococcus aureus (principal); Z66 Do not resuscitate; G93.41 Metabolic encephalopathy; J69.0 Pneumonitis due to inhalation of food and vomit; J96.01 Acute respiratory failure with hypoxia; N17.9 Acute kidney failure, unspecified; I50.32 Chronic diastolic (congestive) heart failure; E87.20 Acidosis, unspecified; N18.4 Chronic kidney disease, stage 4 (severe); N10 Acute pyelonephritis; G40.909 Epilepsy, unspecified, not intractable, without status epilepticus; E11.51 Type 2 diabetes mellitus with diabetic peripheral angiopathy without gangrene; E11.22 Type 2 diabetes mellitus with diabetic chronic kidney disease; M54.12 Radiculopathy, cervical region; E78.5 Hyperlipidemia, unspecified; I11.0 Hypertensive heart disease with heart failure; E86.9 Volume depletion, unspecified; E11.65 Type 2 diabetes mellitus with hyperglycemia; M47.812 Spondylosis without myelopathy or radiculopathy, cervical region; D63.1 Anemia in chronic kidney disease; F32.A Depression, unspecified; D50.9 Iron deficiency anemia, unspecified; Z89.512 Acquired absence of left leg below knee; Z89.511 Acquired absence of right leg below knee; Z88.8 Allergy status to other drugs, medicaments and biological substances; Z79.899 Other long term (current) drug therapy; Z79.82 Long term (current) use of aspirin; Z79.4 Long term (current) use of insulin; Z90.710 Acquired absence of both cervix and uterus; Z90.49 Acquired absence of other specified parts of digestive tract; Z98.49 Cataract extraction status, unspecified eye
CPT/HCPCS: 36415; 36416; 36600; 70450; 70490; 71045; 72125; 72141; 74176; 76700; 80048; 80053; 80074; 80076; 81001; 82010; 82550; 82570; 82728; 82805; 83540; 83550; 83735; 84100; 84145; 84146; 84156; 84300; 84540; 85025; 86140; 87040; 87077; 87086; 87186; 95712; 95819; 95957; 96372; 96374; 96375; 96376; C9113; C9254; G0378; J0360; J0690; J0692; J1644; J1650; J2185; J2270; J2405; J3370-JW; J3475; J3490; J7042; J7050; J7070; P9047; Q5105